=== PATIENT | male | born 1945 | race Caucasian/White ===

== ENCOUNTER → 2016-05-19 | Outpatient (REF) | payer MEDICARE ==
[~2016-05-19] MED LIST: ALDA25TA2 PO; AMIO20TA PO; ATEN25TA PO; CLIN150C PO; DICL PO; DIGO0.126 OR; FLEC100T2 PO; FLECAINIDE PO; FURO40TA2 PO; FURO40VL IV; HYDR2.5C TOP; PANT40TA2 PO; POTA10CA PO; PRAD150C PO; PRED10TA PO
[2016-05-19 20:28] LABS: RETIC HEMOGLOBIN CONTENT CHr 35.8 PG (24-36); RETICULOCYTE ABSOLUTE ADVIA212 68 x10(9)/L (17-77)
[2016-05-19 20:29] LABS: REASON FOR REVIEW COMPREHENSIVE REVIEW
== END ==
LOC: M LAB REF 17:00
PROVIDERS: ATTEND Internal Medicine
DX: D75.89 Other specified diseases of blood and blood-forming organs (principal); D52.8 Other folate deficiency anemias

== ENCOUNTER → 2016-05-20 | Outpatient (REF) | payer MEDICARE | END | disposition home or self-care (01) | LOC: M LAB REF 12:23 | PROVIDERS: ATTEND Internal Medicine | DX: D72.820 Lymphocytosis (symptomatic) (principal) ==

== ENCOUNTER → 2016-06-15 | Outpatient (REF) | payer MEDICARE ==
[2016-06-15 20:04] LABS: IMMUNOGLOBULIN M 98.9 MG/DL (40-230); TOTAL PROTEIN 7.3 GM/DL (6.4-8.2)
[2016-06-15 20:56] LABS: REASON FOR REVIEW COMPREHENSIVE REVIEW
[2016-06-17 14:19] LABS: BETA 2 MICROGLOBULIN 5.6 mg/L (0.6-2.4)
[2016-06-18 00:06] LABS: FREE KAPPA LIGHT CHAINS SERUM 62.44 mg/L (3.30-19.40); FREE LAMBDA LIGHT CHAINS SERUM 37.19 mg/L (5.71-26.30); KAPPA/LAMBDA RATIO SERUM 1.68 (0.26-1.65)
== END ==
LOC: M LAB REF 16:31
PROVIDERS: ATTEND Internal Medicine Medical Oncology
DX: D72.820 Lymphocytosis (symptomatic) (principal)

== ENCOUNTER → 2016-06-24 | Outpatient (REF) | payer MEDICARE | LOC: M LAB REF 11:40 | PROVIDERS: ATTEND Internal Medicine Medical Oncology | DX: C84.00 Mycosis fungoides, unspecified site (principal) ==

== ENCOUNTER → 2016-09-17 | Outpatient (REF) | payer MEDICARE | LOC: M LAB REF 16:31 | PROVIDERS: ATTEND Surgery | DX: L72.11 Pilar cyst (principal) ==

== ENCOUNTER → 2017-01-06 | Outpatient (CLI) | payer MEDICARE ==
[~2017-01-06] MED LIST changes: +ASPI1TAB PO; +EPLE50TA PO; +TORS20TA2 PO
[2017-01-06 18:25] LABS: ANION GAP 6 MEQ/L (8-16); BLOOD UREA NITROGEN 26 MG/DL (7-18); CALCIUM LEVEL 9.1 MG/DL (8.8-10.2); CARBON DIOXIDE LEVEL 31 MEQ/L (21-32); CHLORIDE LEVEL 103 MEQ/L (98-107); CREATININE FOR GFR 1.17 MG/DL (0.70-1.30); GLOMERULAR FILTRATION RATE > 60.0 (>42); GLUCOSE, FASTING 89 MG/DL (83-110); MAGNESIUM LEVEL 2.6 MG/DL (1.8-2.4); POTASSIUM SERUM 4.5 MEQ/L (3.5-5.1); SODIUM LEVEL 140 MEQ/L (136-145)
== END ==
LOC: M SMT 13:38
PROVIDERS: ATTEND Internal Medicine Cardiovascular Disease
DX: I50.32 Chronic diastolic (congestive) heart failure (principal)

== ENCOUNTER 2017-02-17 07:40 | Outpatient (CLI) | payer MEDICARE ==
[~2017-02-17] VITALS: Ht 180.3 cm; Wt 73.5 kg
[~2017-02-17 07:40] MED LIST changes: -ASPI1TAB PO; -EPLE50TA PO; -TORS20TA2 PO
[2017-02-17] MEDS ORDERED: NS 1,000 ML IV ONE (08:00)
[2017-02-17] MEDS ORDERED: EPLE50TA PO (08:25)
[2017-02-17] MEDS ORDERED: ASPI1TAB PO (08:25)
[2017-02-17] MEDS ORDERED: TORS20TA2 PO (08:25)
[2017-02-17] MEDS ORDERED: PROPOFOL 200 MG/20 ML VIAL As Ordered ONE ×2 (09:23→09:24)
[2017-02-17] MEDS ORDERED: LIDOCAINE 2% INJ 100 MG/5 ML SDV (FOR ANES.) As Ordered ONE (09:23)
--- NOTE | 2017-02-17 09:25 | ROOR ---
Patient Name: Darryl Lam Procedure Date: 02/17/2017 9:10 AM Date of : 1945 Age: 71 Room: [facility] Gender: Male Note Status: Finalized Procedure: Upper GI endoscopy Indications: Dysphagia Providers: Daryl Rascon MD Referring MD: AMINA FRANKS JR, MD Requesting Provider: Medicines: Monitored Anesthesia Care Complications: No immediate complications. Procedure: Pre-Anesthesia Assessment: - The heart rate, respiratory rate, oxygen saturations, blood pressure, adequacy of pulmonary ventilation, and response to care were monitored throughout the procedure. The Endoscope was introduced through the mouth, and advanced to the second part of duodenum. The upper GI endoscopy was accomplished without difficulty. The patient tolerated the procedure well. Findings: An esophago-gastric anastomosis was found in the proximal esophagus. No other significant abnormalities were identified in a careful examination of the stomach. The exam of the duodenum was otherwise normal. Impression: - An esophago-gastric anastomosis was found. - No specimens collected. - The examination was otherwise normal. Recommendation: - Patient has a contact number available for emergencies. The signs and symptoms of potential delayed complications were discussed with the patient. Return to normal activities tomorrow. Written discharge instructions were provided to the patient. - Discharge patient to home. - Continue present medications. - Return to referring physician. - The findings and recommendations were discussed with the patient's family. Daryl Rascon MD Daryl Rascon MD 02/17/2017 9:24:36 AM This report has been signed electronically. Number of Addenda: 0 Note Initiated On: 02/17/2017 9:10 AM Estimated Blood Loss: Estimated blood loss: none.
--- NOTE | 2017-02-17 09:38 | ROOR ---
Patient Name: Darryl Lam Procedure Date: 02/17/2017 9:10 AM Date of : 1945 Age: 71 Room: [facility] Gender: Male Note Status: Finalized Procedure: Total Colonoscopy to Cecum Indications: High risk colon cancer surveillance: Personal history of colonic polyps Providers: Daryl Rascon MD Referring MD: AMINA FRANKS JR, MD Requesting Provider: Medicines: Monitored Anesthesia Care Complications: No immediate complications. Procedure: Pre-Anesthesia Assessment: - The heart rate, respiratory rate, oxygen saturations, blood pressure, adequacy of pulmonary ventilation, and response to care were monitored throughout the procedure. The Colonoscope was introduced through the anus and advanced to the cecum, identified by appendiceal orifice and ileocecal valve. The colonoscopy was performed without difficulty. The patient tolerated the procedure well. The quality of the bowel preparation was excellent. Findings: The perianal and digital rectal examinations were normal. Non-bleeding internal hemorrhoids were found during retroflexion. The hemorrhoids were small and Grade I (internal hemorrhoids that do not prolapse). Multiple small-mouthed diverticula were found in the recto-sigmoid colon, sigmoid colon and descending colon. The exam was otherwise without abnormality on direct and retroflexion views. Impression: - Non-bleeding internal hemorrhoids. - Diverticulosis in the recto-sigmoid colon, in the sigmoid colon and in the descending colon. - The examination was otherwise normal on direct and retroflexion views. - No specimens collected. - The exam was otherwise normal to the cecum. Recommendation: - Patient has a contact number available for emergencies. The signs and symptoms of potential delayed complications were discussed with the patient. Return to normal activities tomorrow. Written discharge instructions were provided to the patient. - High fiber diet. - Discharge patient to home. - Continue present medications. - Repeat colonoscopy in 5 years for surveillance. - Return to referring physician. - The findings and recommendations were discussed with the patient's family. Daryl Rascon MD Daryl Rascon MD 02/17/2017 9:38:23 AM This report has been signed electronically. Number of Addenda: 0 Note Initiated On: 02/17/2017 9:10 AM Estimated Blood Loss: Estimated blood loss: none.
[2017-02-17 10:12] VITALS: BP 155/65
== END 2017-02-17 10:14 | disposition home or self-care (01) ==
LOC: M OPP 07:40
PROVIDERS: ATTEND Internal Medicine Gastroenterology
DX: Z12.11 Encounter for screening for malignant neoplasm of colon (principal); Z86.010 Personal history of colon polyps; Z85.01 Personal history of malignant neoplasm of esophagus; K64.0 First degree hemorrhoids; K57.30 Diverticulosis of large intestine without perforation or abscess without bleeding; R13.10 Dysphagia, unspecified; Z98.890 Other specified postprocedural states; I48.91 Unspecified atrial fibrillation; I50.9 Heart failure, unspecified; I34.0 Nonrheumatic mitral (valve) insufficiency; R60.0 Localized edema; Z95.0 Presence of cardiac pacemaker; Z92.21 Personal history of antineoplastic chemotherapy; Z92.3 Personal history of irradiation; R12 Heartburn; Z79.899 Other long term (current) drug therapy; Z79.82 Long term (current) use of aspirin
CPT/HCPCS: 43235; G0105

== ENCOUNTER → 2017-07-13 | Outpatient (CLI) | payer MEDICARE ==
[2017-07-13 20:21] LABS: ALBUMIN 3.8 GM/DL (3.2-5.2); ANION GAP 7 MEQ/L (8-16); BLOOD UREA NITROGEN 24 MG/DL (7-18); CALCIUM LEVEL 8.9 MG/DL (8.8-10.2); CARBON DIOXIDE LEVEL 33 MEQ/L (21-32); CHLORIDE LEVEL 103 MEQ/L (98-107); CREATININE FOR GFR 1.23 MG/DL (0.70-1.30); GLOMERULAR FILTRATION RATE > 60.0 (>42); GLUCOSE, FASTING 96 MG/DL (70-100); MAGNESIUM LEVEL 2.6 MG/DL (1.8-2.4); NT-PRO BNP 1014 PG/ML (<125); PHOSPHORUS LEVEL 3.4 MG/DL (2.5-4.9); SODIUM LEVEL 143 MEQ/L (136-145)
== END ==
LOC: M SMT 10:36
DX: I50.32 Chronic diastolic (congestive) heart failure (principal)
CPT/HCPCS: 83735

== ENCOUNTER → 2017-08-11 | Outpatient (CLI) | payer MEDICARE ==
[2017-08-11 19:02] LABS: ALBUMIN 3.8 GM/DL (3.2-5.2); ANION GAP 6 MEQ/L (8-16); BILIRUBIN,DIRECT 0.5 MG/DL (0.0-0.2); BILIRUBIN,TOTAL 1.3 MG/DL (0.2-1.0); BLOOD UREA NITROGEN 31 MG/DL (7-18); CARBON DIOXIDE LEVEL 30 MEQ/L (21-32); CHLORIDE LEVEL 103 MEQ/L (98-107); CREATININE FOR GFR 1.54 MG/DL (0.70-1.30); GLOMERULAR FILTRATION RATE 47.5 (>42); GLUCOSE, FASTING 103 MG/DL (70-100); PHOSPHORUS LEVEL 4.1 MG/DL (2.5-4.9); POTASSIUM SERUM 4.5 MEQ/L (3.5-5.1); SODIUM LEVEL 139 MEQ/L (136-145)
== END ==
LOC: M SMT 13:51
DX: I50.32 Chronic diastolic (congestive) heart failure (principal); R60.0 Localized edema
CPT/HCPCS: 82247

== ENCOUNTER → 2017-11-04 | Outpatient (CLI) | payer MEDICARE ==
[2017-11-04 18:06] LABS: ANION GAP 8 MEQ/L (8-16); BILIRUBIN,DIRECT 0.5 MG/DL (0.0-0.2); BILIRUBIN,TOTAL 1.2 MG/DL (0.2-1.0); BLOOD UREA NITROGEN 28 MG/DL (7-18); CALCIUM LEVEL 8.8 MG/DL (8.8-10.2); CARBON DIOXIDE LEVEL 32 MEQ/L (21-32); CHLORIDE LEVEL 101 MEQ/L (98-107); GLOMERULAR FILTRATION RATE > 60.0 (>42); GLUCOSE, FASTING 94 MG/DL (70-100); MAGNESIUM LEVEL 2.8 MG/DL (1.8-2.4); NT-PRO BNP 3934 PG/ML (<125); POTASSIUM SERUM 4.3 MEQ/L (3.5-5.1); SODIUM LEVEL 141 MEQ/L (136-145)
== END ==
LOC: M LAB 16:30
DX: I50.32 Chronic diastolic (congestive) heart failure (principal)
CPT/HCPCS: 82247

== ENCOUNTER → 2018-01-03 | Outpatient (REF) | payer MEDICARE ==
[2018-01-03 13:22] LABS: EOSINOPHILS 1 % (0-5); LYMPHOCYTES 89 % (16-52); MONOCYTES 1 % (0-8); NEUTROPHILS 9 % (35-75)
[2018-01-03 13:34] LABS: ANISOCYTOSIS 3+; SCHISTOCYTES 2+
[2018-01-03 13:35] LABS: OVALOCYTES 1+; PLATELET ESTIMATE NORMAL (NORMAL)
== END ==
LOC: M LAB REF 12:04
DX: D72.820 Lymphocytosis (symptomatic) (principal); D72.89 Other specified disorders of white blood cells
CPT/HCPCS: 85007

== ENCOUNTER → 2018-07-11 | Outpatient (REF) | payer MEDICARE ==
[~2018-07-11] MED LIST changes: +AMIL5TAB4 PO; +ASPI1TAB PO; +EPLE50TA PO; +KLOR10TA76 PO; +PANT40TA3 PO; -POTA10CA PO; +TORS20TA2 PO
[2018-07-11 14:24] LABS: EOSINOPHILS 2 % (0-5); HYPOCHROMASIA 1+; LYMPHOCYTES 83 % (16-52); MONOCYTES 4 % (0-8); NEUTROPHILS 11 % (35-75); POIKILOCYTOSIS 2+
[2018-07-11 14:25] LABS: BURR CELLS 1+; HOWELL-JOLLY BODIES 1+; OVALOCYTES 1+; SCHISTOCYTES 1+
[2018-07-11 14:29] LABS: GIANT PLATELETS 1+; PLATELET ESTIMATE NORMAL (NORMAL)
== END ==
LOC: M LAB REF 12:32
PROVIDERS: ATTEND Internal Medicine
DX: R79.89 Other specified abnormal findings of blood chemistry (principal); R94.5 Abnormal results of liver function studies; D72.829 Elevated white blood cell count, unspecified

== ENCOUNTER → 2018-11-23 | Outpatient (CLI) | payer MEDICARE ==
[~2018-11-23] MED LIST changes: +AMIO200T10 PO; +AMIO200T22 PO; -AMIO20TA PO; -ASPI1TAB PO; +ASPI81TA26 PO; -DICL PO; +DICL1CAP2 PO; +ELIQ5TAB PO; -FURO40VL IV; +PRAD150C6 PO; +PRED-351 PO; -PRED10TA PO; +[UNRECOGNIZED DRUG - CODE] IV
[2018-11-23 13:28] LABS: ALBUMIN 3.6 GM/DL (3.2-5.2); BILIRUBIN,DIRECT 0.5 MG/DL (0.0-0.2); BILIRUBIN,TOTAL 1.2 MG/DL (0.2-1.0); CALCIUM LEVEL 9.1 MG/DL (8.8-10.2); CREATININE FOR GFR 1.34 MG/DL (0.70-1.30); GLOMERULAR FILTRATION RATE 55.6 (>42); MAGNESIUM LEVEL 2.7 MG/DL (1.8-2.4); PHOSPHORUS LEVEL 3.4 MG/DL (2.5-4.9); POTASSIUM SERUM 4.2 MEQ/L (3.5-5.1)
== END ==
LOC: M SMT 09:19
PROVIDERS: ATTEND Internal Medicine Cardiovascular Disease
DX: I50.32 Chronic diastolic (congestive) heart failure (principal)

== ENCOUNTER → 2019-01-10 | Outpatient (CLI) | payer MEDICARE ==
[2019-01-10 14:03] LABS: ALBUMIN 3.8 GM/DL (3.2-5.2); BILIRUBIN,DIRECT 0.5 MG/DL (0.0-0.2); BILIRUBIN,TOTAL 1.3 MG/DL (0.2-1.0); CALCIUM LEVEL 9.3 MG/DL (8.8-10.2); CREATININE FOR GFR 1.33 MG/DL (0.70-1.30); GLOMERULAR FILTRATION RATE 56.1 (>42); MAGNESIUM LEVEL 2.8 MG/DL (1.8-2.4); PHOSPHORUS LEVEL 3.5 MG/DL (2.5-4.9); POTASSIUM SERUM 4.1 MEQ/L (3.5-5.1)
== END ==
LOC: M SMT 09:27
PROVIDERS: ATTEND Internal Medicine Cardiovascular Disease
DX: I50.32 Chronic diastolic (congestive) heart failure (principal)

== ENCOUNTER → 2019-03-16 | Outpatient (CLI) | payer MEDICARE ==
[2019-03-16 13:44] LABS: FREE T4 1.1 NG/DL (0.76-1.46); FREE THYROXINE INDEX 3.1 % (1.4-3.8); THYROID STIMULATING HORMONE 2.12 uIU/ML (0.358-3.740); THYROXINE (T4) 8.2 UG/DL (4.5-12.0); TOTAL T3 55.2 NG/DL (60.0-181.0)
== END ==
LOC: M SMT 10:38
PROVIDERS: ATTEND Ophthalmology
DX: H16.221 Keratoconjunctivitis sicca, not specified as Sjogren's, right eye (principal)

== ENCOUNTER 2019-04-10 16:46 | Inpatient (IN) | payer MEDICARE ==
[~2019-04-10] VITALS: Ht 180.3 cm; Wt 57.4 kg
[2019-04-10] MEDS ORDERED: DIGO0.12 PO (16:56)
[2019-04-10] MEDS ORDERED: ACETAMINOPHEN TAB 650MG DOSE (2X325MG) PO ONE (17:45)
--- NOTE | 2019-04-10 18:02 | REP ---
Clinical: Cough and dyspnea. Comparison: 11/21/2015. Findings: Moderate pleural effusions and bibasilar infiltrate/atelectasis with cephalization is consistent with CHF and pulmonary edema. Dual lead pacemaker along with prior sternotomy and aortic valve repair noted. Impression: CHF with moderate pleural effusions and bibasilar atelectasis. Electronically Signed by Chun Plascencia MD 04/10/2019 05:53 P
[2019-04-10] MEDS ORDERED: NS 1,000 ML IV ONE (18:15)
[2019-04-10 18:17] LABS: VENOUS BASE EXCESS 6.7 (-2.0-2.0); VENOUS HCO3 30.5 MEQ/L (23.0-27.0); VENOUS O2 SATURATION 70.5 % (60.0-80.0); VENOUS PARTIAL PRESSURE CO2 40.6 mmHg (38.0-50.0); VENOUS PH 7.494 UNITS (7.330-7.430); VENOUS STANDARD HCO3 30.1 MEQ/L; VENOUS TOTAL CO2 31.8 MEQ/L (24.0-28.0)
[2019-04-10 18:29] LABS: HEMATOCRIT 27.7 % (42.0-52.0); HEMOGLOBIN 9.2 g/dl (13.5-17.5); MEAN CORPUSCULAR HEMOGLOBIN 36.5 pg (27.0-33.0); MEAN CORPUSCULAR HGB CONC 33.2 g/dl (32.0-36.5); MEAN CORPUSCULAR VOLUME 109.9 fl (80.0-96.0); PLATELET COUNT, AUTOMATED 283 10^3/uL (150-450); RED BLOOD COUNT 2.52 10^6/uL (4.30-6.10); WHITE BLOOD COUNT 15.1 10^3/uL (4.0-10.0)
[2019-04-10 18:41] LABS: INR 1.93; PROTHROMBIN TIME 21.9 SECONDS (11.8-14.0)
[2019-04-10 18:50] LABS: ALBUMIN 3.2 GM/DL (3.2-5.2); ALT/SGPT 20 U/L (12-78); BILIRUBIN,DIRECT 0.5 MG/DL (0.0-0.2); BILIRUBIN,TOTAL 1.3 MG/DL (0.2-1.0); BLOOD UREA NITROGEN 28 MG/DL (7-18); C REACTIVE PROTEIN QUANTITATIV 0.95 MG/DL (0.00-0.30); CALCIUM LEVEL 8.8 MG/DL (8.8-10.2); CARBON DIOXIDE LEVEL 32 MEQ/L (21-32); CHLORIDE LEVEL 95 MEQ/L (98-107); CK-MB VALUE MASS < 1.0 NG/ML (<3.6); CPK CREATINE PHOSPHOKINASE 29 U/L (39-308); CREATININE FOR GFR 1.78 MG/DL (0.70-1.30); GLUCOSE, FASTING 108 MG/DL (70-100); MB/CK RELATIVE INDEX 3.45 (< OR =4); NT-PRO BNP 4530 PG/ML (<125); SODIUM LEVEL 136 MEQ/L (136-145); TOTAL PROTEIN 6.3 GM/DL (6.4-8.2); TROPONIN I < 0.02 NG/ML (< 0.10)
[2019-04-10 19:07] LABS: ANISOCYTOSIS 3+; ATYPICAL LYMPH 7 % (0-5); LYMPHOCYTES 19 % (16-44); MONOCYTES 1 % (0-5); NEUTROPHILS 64 % (28-66)
[2019-04-10 19:08] LABS: HYPOCHROMASIA 1+; OVALOCYTES 1+; POIKILOCYTOSIS 2+; SPHEROCYTES 1+
[2019-04-10 19:09] LABS: PLATELET ESTIMATE NORMAL (NORMAL)
--- NOTE | 2019-04-10 19:51 | REPVR ---
PROCEDURE INFORMATION: Exam: CT Chest Without Contrast Exam date and time: 04/10/2019 7:06 PM Age: 74 years old Clinical history: Chest pain; Prior surgery; Additional info: Pneumonia, chf TECHNIQUE: Imaging protocol: Computed tomography of the chest without contrast. 3D rendering: MIP reconstructed images were created and reviewed. Radiation optimization: All CT scans at this facility use at least one of these dose optimization techniques: automated exposure control; mA and/or kV adjustment per patient size (includes targeted exams where dose is matched to clinical indication); or iterative reconstruction. COMPARISON: CT Chest without contrast 11/19/2015 12:17 PM FINDINGS: Lungs: Surgical clip in the left lower lobe consistent with prior surgery. Bibasilar atelectasis. Infection to be excluded clinically. Well-inflated lungs consistent with COPD. Lungs otherwise clear. Pleural space: Small bilateral pleural effusions right greater than left, decreased in comparison to the prior exam of 2015. Heart: Status post CABG. Coronary artery disease. Status post mitral valve replacement. Cardiac pacing wires identified. Aorta: The aorta demonstrates ectasia and mild atherosclerotic calcification. Lymph nodes: Unremarkable. No enlarged lymph nodes. Spleen: Status post splenectomy. Kidneys and ureters: Left renal cysts. Stomach and bowel: Status post gastric pullup procedure. Bones/joints: Osteoporosis. The spine demonstrates mild degenerative changes. Status post sternotomy. Age-indeterminate compression fracture of T11. Compression deformity superior endplate of T8 also age-indeterminate. Soft tissues: Mild anasarca. IMPRESSION: 1. Bibasilar atelectasis. Infection to be excluded clinically. 2. Status post gastric pullup procedure. 3. Status post CABG. 4. Age-indeterminate compression fracture of T11 and superior endplate of T8. Clinical correlation to exclude acute fractures suggested. 5. COPD. Electronically signed by: Jonah Navas On 04/10/2019 19:50:29 PM
[2019-04-10] MEDS ORDERED: cefTRIAXone SOD 2 GM in D5W MINI-BAG PLUS 50 ML IV ONE (20:00)
--- NOTE | 2019-04-10 20:03 | ECGEPIP ---
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
[2019-04-10] MEDS ORDERED: TORS100T PO (20:08)
[2019-04-10] MEDS ORDERED: NS 500 ML IV ONE (20:30)
[2019-04-10] MEDS ORDERED: MOM 30ML SUSPENSION UDC PO PRN (21:00)
[2019-04-10] MEDS ORDERED: ACETAMINOPHEN TAB 650MG DOSE (2X325MG) PO PRN (21:00)
[2019-04-10] MEDS ORDERED: PIPERACILLIN/TAZOBACTAM SOD 4.5 GM in D5W MINI-BAG PLUS 100 ML IV SCH (21:15)
[2019-04-10 21:20] LABS: PHOSPHORUS LEVEL 2.8 MG/DL (2.5-4.9)
[2019-04-10] MEDS ORDERED: NOREPINEPHRINE BITARTRATE 8 MG in D5W 492 ML IV SCH ×2 (21:30→21:47)
[2019-04-10 21:55] VITALS: BP 81/43
[2019-04-10] MEDS ORDERED: LIDOCAINE 1% MDV 20ML VIAL As Ordered ONE (22:24)
[2019-04-10 22:30] VITALS: BP 84/49
[2019-04-10 23:00] VITALS: BP 88/54
[2019-04-10] MEDS ORDERED: VANCOMYCIN HCL 750 MG, VIAL MATE ADAPTER 1 EACH in D5W 250 ML IV ONE (23:00)
--- NOTE | 2019-04-10 23:19 | PHACANCOPD ---
PHARMACY VANCOMYCIN DOSING Pt Demographics Demographics Patient Age:74 , Weight:59.090 , Gender: male Adjusted Body Weight Date: 04/10/19, Adjusted Body Weight: Kg Events Past 24 Hours Events Past 24 Hours: NO: Dialysis, Diuretic Therapy, Change in CrCl, Fever, Elevation in WBC, Pending Diagnostics, Pending Procedures, Other Vancomycin Vancomycin indication: SEPSIS Vancomycin Target Ranges: 15-20 mcg/ml Vancomycin Load Y/N: Yes Load Dose Date Time Vancomycin Load Dose:1.25G Date: 04/10/19 Time: Vancomycin Dose Date: 04/10/19. Current Vancomycin Dose: [1G IV Q24H] Intermittent Dosing?: No Labs Labs Item Value Date Time White Blood Count 15.1 10^3/uL H 04/10/19 1801 Creatinine 1.78 MG/DL H 04/10/19 1800 Micro Microbiology 04/10/19 Blood Culture, Received Pending 04/10/19 Gram Stain, Received Pending 04/10/19 Sputum Culture, Received Pending 04/10/19 Respiratory Virus Panel (PCR) (ADRIANA) - Final, Complete 04/10/19 Blood Culture, Received Pending Creatinine Clearance Date:04/10/19. Creatinine Clearance: [27ML/MIN]. Pending Labs MRSA PCR Assessment and Plan Maintaining Current Dose?: Yes Reason for dose change: No Dose Change Pharmacist Note Pharmacist Note Date: 04/10/19. Pharmacist note:Pt is a 74 year old male being treated for sepsi s goal trough 15-20mcg/ml. The patient was last treated with vancomycin here at [facility] in June 2013. To achieve goal a 1.25g loading dose was started 04/10/19 @23. Maintenance therapy will consist of 1g iv every 24 hours. A MRSA PCR is ordered. We will continue to monitor and adjust the dose as needed. MARIYA CERNA PHARMACY Apr 10, 2019 23:19
[2019-04-10] MEDS ORDERED: NOREPINEPHRINE 4 MG/4 ML AMP As Ordered ONE (23:22)
[2019-04-10] MEDS: APIXABAN 5 MG TAB (ELIQUIS) PO SCH (23:36)
[2019-04-10] MEDS: PIPERACILLIN/TAZOBACTAM SOD 2.25 GM in D5W MINI-BAG PLUS 50 ML IV SCH (23:36)
--- NOTE | 2019-04-10 23:47 | ROOPDOC ---
[facility] Report Of Operation Report of Operation DATE OF PROCEDURE: 04/10/19 PREPROCEDURE DIAGNOSES: decompensated CHF, hypotension, sepsis POSTPROCEDURE DIAGNOSES: decompensated CHF, hypotension, sepsis PROCEDURE: right IJ central line placement Performed by: Marysol Go Attending: Dr. Vicente ANESTHESIA: local ESTIMATED BLOOD LOSS: Approximately 0 mL. COMPLICATIONS: none PROCEDURE NOTE: Consent was obtained prior to the procedure. Indications, risks and benefits were explained to the patient. Procedure was performed in ICU at bedside. DESCRIPTION OF PROCEDURE: The patient was placed in the supine position, was placed in Trendelenburg. The right chest region and neck was prepped with chlorhexidine scrub. The patient was draped in the typical sterile fashion using a full drape. Ultrasonography was employed at bedside. A sterile probe cover was placed over the ultrasound. The medial and lateral head of the sternocleidomastoid were identified, as was the carotid pulse. The internal jugular vein was identified using ultrasound. Anesthesia was achieved over the internal jugular vein on the right using a 1% lidocaine solution. Once anesthetized, an introducer needle was inserted into the internal jugular vein under direct ultrasound visualization. Venous blood was withdrawn, syringe was removed and a guidewire was advanced on to the introducer needle. The guidewire was visualized in the internal jugular vein by ultrasound. A small incision was made in the skin surface with a scalpel, and the introducer needle was exchanged for a dilator over the guidewire. After appropriate dilation was obtained, the dilator was exchanged over the wire for a central venous catheter. The wire was removed, and the catheter was sutured in place. A sterile bandage was placed over the catheter site. The patient tolerated the procedure well without any hemodynamic compromise. At the time of procedure completion, all ports were aspirated and flushed properly. Postprocedure x-ray was performed, which demonstrated adequate positioning of the central venous catheter in the right internal jugular vein. GME ATTESTATION GME ATTESTATION My faculty preceptor for this patient encounter was physically present during the encounter and was fully available. All aspects of the patient interview, examination, medical decision making process, and medical care plan development were reviewed and approved by the faculty preceptor. The faculty preceptor is aware and concurs with the plan as stated in the body of this note and will attest to such by his/her cosignature. I, Meagan Vicente, was present for the entirety of the procedure and agree with the procedure documentation as detailed above. MARYSOL GO DO Apr 10, 2019 23:47 MEAGAN VICENTE MD Apr 11, 2019 10:52
--- NOTE | 2019-04-10 23:55 | HPEPDOC ---
General Date of Admission Apr 10, 2019 at 21:12 Date of Service: Apr 10, 2019 Primary Care Physician: Jr Bahena Collins Other Providers Cardio: Dr. Mims Onc: Dr. Merino & Dr. Fuller in [place] Chief Complaint The patient is a 74-year-old male admitted with a reason for visit of Pneumonia, Sepsis. History of Present Illness 74-year-old male with extensive past medical history as noted below, presents with for gradually worsening dyspnea over the past 4-5 weeks. Only other complaints are of chills, orthopnea, and cough with minimal phlegm that is clear. Denies any inciting factors, recent travel, changes in meds, sick contacts, or any noncompliance. He reports he normally sleeps with one pillow, however has required elevation of his head since his dyspnea. Reports he is able to ambulate about one block with normal health, however now feels short of breath even at rest. Denies any recent fevers, however found to have Tmax 101.4 in ER. Denies edema, PND, chest pain, dizziness. In the ER, imaging notable for bilateral pleural effusions, elevated BNP, and patient noted to be septic with fever, leukocytosis, tachycardia, hypotension. EKG with HR 90s confirms his known history of A. fib without any acute ST or NC abnormality. He received 1 dose Ceftriaxone in ER and will will be admitted for further workup and close monitoring in ICU. 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 fib chronically on December JESSE, not on CPAP End-stage esophageal cancer, S/P esophagectomy and chemotherapy & radiation Hypertension Mitral valve repair Surgical History Esophagectomy with gastric pull-up Right inguinal hernia repair Dual-chamber pacemaker 2013 Cystoscopy with stent placement Splenectomy and esophagectomy 1998 Mitral valve repair at [facility] 2014 Family History Father age 93 with CHF Mother passed at age 92 with CHF Social History Denies ever smoking, alcohol, illicit substances. Lives at home with . A-FIB/CHADSVASC A-FIB History Current/History of A-Fib/PAF?: Yes Current PO Anticoag Therapy: Yes Review of Systems Other systems Constitutional: Denies fever,night sweats. Admits chills HEENT: Denies headache, dysphagia Skin: Denies any rashes or lesions Pulmonary: Admits dyspnea, minimal clear phlegm production, no wheezing or cough Cardiac: Denies chest pain, palpitations, PND, edema, lightheadedness. Admits orthopnea GI: Denies nausea, vomiting, abdominal pain, diarrhea, constipation, melena, hematochezia MSK: Denies new pains or weakness Neurologic: Denies new numbness/tingling Physical Examination Other physical findings General exam: A&O 3, NAD, resting comfortably HEENT: NCAT, EOMI, MMM, +JVD Cardiac: RRR, normal S1 & S2, no murmurs, pacemaker in left upper chest Respiratory: bibasilar crackles, diminshed breath sounds throughout, no wheezing or rhonchi Abdomen: soft, NT, ND Extremity: 2+ radial and dorsalis pedis pulses, 1+ edema midway up to knees, no calf tenderness Skin: [place]well, warm, dry, no visible rash Msk: strength 5/5 x4, normal tone, no spinal tenderness Neuro: normal speech, no focal deficits Psych: Normal mood and affect Vital Signs Vital Signs Date Time Temp Pulse Resp B/P (MAP) Pulse Ox O2 Delivery O2 Flow Rate FiO2 04/10/19 21:17 80 20 92 Room Air 04/10/19 21:15 81/43 (56) 04/10/19 20:04 99.6 Laboratory Data Labs 24H Laboratory Tests 2 04/10/19 18:00: Prothrombin Time 21.9H, Prothromb Time International Ratio 1.93, Blood Gas Bicarbonate Standard 30.1, Venous Blood pH 7.494H, Venous Blood Partial Pressure CO2 40.6, Venous Blood Partial Pressure O2 35.0, Venous Blood Total Carbon Dioxide 31.8H, Venous Blood HCO3 30.5H, Venous Blood Oxygen Saturation 70.5, Venous Blood Base Excess 6.7H, Anion Gap 9, Glomerular Filtration Rate 40.0L, Calcium Level 8.8, Phosphorus Level 2.8, Total Bilirubin 1.3H, Direct Bilirubin 0.5H, Aspartate Amino Transf (AST/SGOT) 28, Alanine Aminotransferase (ALT/SGPT) 20, Alkaline Phosphatase 89, Total Creatine Kinase 29L, Creatine Kinase MB < 1.0, Creatine Kinase MB Relative Index 3.45, Troponin I < 0.02, C-Reactive Protein, Quantitative 0.95H, HY-Rao-X-Type Natriuretic Peptide 4530H, Total Protein 6.3L, Albumin 3.2, Albumin/Globulin Ratio 1.03, Thyroid Stimulating Hormone (TSH) 2.020 04/10/19 18:01: Lymphocytes # (Auto) , Nucleated Red Blood Cells % (auto) 0.2H, Neutrophils 64, Band Neutrophils 9, Lymphocytes (Manual) 19, Monocytes (Manual) 1, Atypical Lymphocytes 7H, Hypochromasia 1+, Poikilocytosis 2+, Anisocytosis 3+, Macrocytosis 2+, Spherocytes 1+, Ovalocytes 1+, Acanthocytes 1+, Platelet Estimate NORMAL, Lactic Acid Level 2.9*H CBC/BMP Laboratory Tests 04/10/19 18:00 04/10/19 18:01 Microbiology Microbiology 04/10/19 Blood Culture, Received Pending 04/10/19 Gram Stain, Received Pending 04/10/19 Sputum Culture, Received Pending 04/10/19 Respiratory Virus Panel (PCR) (ADRIANA) - Final, Complete 04/10/19 Blood Culture, Received Pending Assessment/Plan 74-year-old male with PMH including CAD S/P CABG, PAF on Eliquis, PPM, and esophageal cancer s/p surgery & chemoradiation, presenting for gradually worsening dyspnea. Signs of acute CHF exacerbation, and also septic shock, requiring central line upon admission and started on pressors. Septic shock Fever, leukocytosis, tachycardia, hypotension, lactic acidosis. Received almost 1 full liter NS in ER without any significant improvement blood pressure. Avoid further fluids given decompensated CHF Central line placed in ICU and started on Levophed. Maintain MAP >65 Suspected source is likely pneumonia. Although respiratory panel negative, suspicion high due to clinical picture and imaging Will start on broad-spectrum antibiotics, monitor for improvement. Pro- calcitonin, CRP, sputum & blood cultures pending Pt high risk of Strep Pneumo given asplenic status, but reports compliance with Pneumococcal vaccine q5yrs Decompensated diastolic CHF Elevated BNP 4000+, edema, JVD, crackles, bilateral effusions on imaging Obtain outpatient cardiac records, follows Dr. Mims last echo 2013: EF 70%, Repeat echo ordered Avoid diuresis at this point given his hypotension strict I/O, daily wt, elevate legs & head Tachyarrhythmia Pt has PPM placed 2013, follows Dr. Mims Noted to be sinus tach [SVT vs Afib RVR] up to 160s in ICU, non-sustained. Otherwise stable self-resolved back to 70s-80s. Cardiac markers neg & EKG unchanged may be 2/2 septic state. Consider calling Cardio in am, possible PPM interrogation repeat card linares ordered for am Compression fractures noted incidentally on CT. Pt denies back pain or any recent falls monitor and o/p f/u fall precautions in place NANCY on CKD III baseline Cr 1.2-1.3. 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 fib chronically on Eliquis continue Digoxin unable to tolerate BBlocker 2/2 chronically low bp as per pt JESSE unable to tolerate CPAP titrate supplemental O2 End-stage esophageal cancer S/P esophagectomy and chemotherapy & radiation [address] Merino & [facility] Hypertension hold home Amiloride & Torsemide given pressor requirement Mitral valve repair at [facility] 2014 new echo ordered GERD continue PPI DVT ppx: chronically Eliquis Code status: discussed with pt and , and he confirms FULL CODE with compr essions & intubation. DISPO: admit to Hospitalist, monitor closely in ICU. On pressors and broad spe ctrum abx, pending results. Plan / VTE VTE Prophylaxis Ordered?: Yes GME ATTESTATION GME ATTESTATION My faculty preceptor for this patient encounter was physically present during the encounter and was fully available. All aspects of the patient interview, examination, medical decision making process, and medical care plan development were reviewed and approved by the faculty preceptor. The faculty preceptor is aware and concurs with the plan as stated in the body of this note and will attest to such by his/her cosignature. KIMBERLY GREEN DO Apr 10, 2019 23:55 LOURDES HENDRICKS DO Apr 11, 2019 06:49
[2019-04-11] VITALS (51 sets, daily range): BP systolic 74–147; BP diastolic 44–89
[2019-04-11] MEDS ORDERED: VANCOMYCIN HCL 500 MG in D5W MINI-BAG PLUS 100 ML IV ONE ×2
[2019-04-11 01:18] LABS: INFLUENZA A AMPLIFICATION NEGATIVE (NEGATIVE); INFLUENZA B AMPLIFICATION NEGATIVE (NEGATIVE)
[2019-04-11] MEDS: NOREPINEPHRINE BITARTRATE 8 MG in D5W 492 ML IV SCH ×2 (01:48→20:00)
[2019-04-11 01:57] LABS: BLOOD UREA NITROGEN 29 MG/DL (7-18); CALCIUM LEVEL 7.9 MG/DL (8.8-10.2); CARBON DIOXIDE LEVEL 32 MEQ/L (21-32); CHLORIDE LEVEL 97 MEQ/L (98-107); CK-MB VALUE MASS < 1.0 NG/ML (<3.6); CPK CREATINE PHOSPHOKINASE 35 U/L (39-308); CREATININE FOR GFR 1.73 MG/DL (0.70-1.30); GLOMERULAR FILTRATION RATE 41.3 (>42); GLUCOSE, FASTING 156 MG/DL (70-100); MAGNESIUM LEVEL 2.1 MG/DL (1.8-2.4); MB/CK RELATIVE INDEX 2.86 (< OR =4); POTASSIUM SERUM 3.9 MEQ/L (3.5-5.1); SODIUM LEVEL 136 MEQ/L (136-145); TROPONIN I 0.04 NG/ML (< 0.10)
[2019-04-11] MEDS: PIPERACILLIN/TAZOBACTAM SOD 2.25 GM in D5W MINI-BAG PLUS 50 ML IV SCH ×4 (04:03→21:46)
--- NOTE | 2019-04-11 07:37 | REP ---
Clinical: Central line placement. Comparison: 04/10/2019 at 17:39 . Findings: Right IJ line with tip in the SVC. Mediastinum and cardiac silhouette are stable. No pneumothorax. Bibasilar atelectasis/infiltrates along with moderate pleural effusions and suspected partial collapse to the left lower lobe and right lower lobe suggested. Impression: Moderate pleural effusions with bibasilar atelectasis and bibasilar partial collapse. Electronically Signed by Chun Plascencia MD 04/11/2019 07:28 A
[2019-04-11 08:27] LABS: HEMATOCRIT 25.9 % (42.0-52.0); HEMOGLOBIN 8.3 g/dl (13.5-17.5); MEAN CORPUSCULAR HEMOGLOBIN 36.4 pg (27.0-33.0); MEAN CORPUSCULAR VOLUME 113.6 fl (80.0-96.0); PLATELET COUNT, AUTOMATED 242 10^3/uL (150-450); RED BLOOD COUNT 2.28 10^6/uL (4.30-6.10)
[2019-04-11 09:04] LABS: WHITE BLOOD COUNT 32.8 10^3/uL (4.0-10.0)
[2019-04-11 09:15] LABS: BLOOD UREA NITROGEN 30 MG/DL (7-18); CALCIUM LEVEL 8.1 MG/DL (8.8-10.2); CARBON DIOXIDE LEVEL 31 MEQ/L (21-32); CHLORIDE LEVEL 98 MEQ/L (98-107); CK-MB VALUE MASS < 1.0 NG/ML (<3.6); CPK CREATINE PHOSPHOKINASE 81 U/L (39-308); CREATININE FOR GFR 1.82 MG/DL (0.70-1.30); GLUCOSE, FASTING 141 MG/DL (70-100); MAGNESIUM LEVEL 2.1 MG/DL (1.8-2.4); MB/CK RELATIVE INDEX 1.23 (< OR =4); SODIUM LEVEL 136 MEQ/L (136-145); TROPONIN I 0.09 NG/ML (< 0.10)
[2019-04-11] MEDS: APIXABAN 5 MG TAB (ELIQUIS) PO SCH ×2 (09:23→20:15)
[2019-04-11] MEDS: PANTOPRAZOLE 40MG TAB (PROTONIX) PO SCH (09:23)
[2019-04-11 10:22] LABS: DIGOXIN LEVEL 1.6 NG/ML (0.5-2.0)
[2019-04-11] MEDS: DIGOXIN 0.125 MG TAB PO SCH (11:47)
--- NOTE | 2019-04-11 13:06 | CR ---
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 The patient denied noticing any significant chest pain. He denied noticing any increased lower extremity edema, although he has noted some increase orthopnea in the past few weeks with his worsening dyspnea. He has an occasional cough with clear sputum, but he does not feel it has been significantly worse. He has not had any fevers, but he did have some chills that he reported. He had no recent sick contacts. No recent travel. He denies any change in his medications and he reports he has been compliant with his torsemide 100 mg b.i.d. The patient does note that if he does not take his torsemide he will have increased lower extremity edema, but he has been compliant so has not noticed any significant edema besides in his ankles bilaterally. The patient does occasionally have episodes of palpitations with his paroxysmal atrial fibrillation although he denies that it has been worsening recently that he notices. He did have a recent echocardiogram done with his real estate acquisition analyst Dr. Mims and he was due to followup with him in the office next week. The patient otherwise denies any history of any pulmonary disease. He does have a history of a splenectomy and he reports that he has been compliant with his pneumococcal vaccine as per his primary care. PAST MEDICAL/SURGICAL HISTORY: CAD status post CABG. Dual-chamber pacemaker secondary to high degree AV block. Paroxysmal atrial fibrillation. JESSE not on CPAP. End stage esophageal cancer status post esophagectomy, chemotherapy and radiation. Hypertension. Mitral valve repair. Right inguinal hernia repair. Cystoscopy with stent placement. 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 HOME MEDICATIONS: - amiloride - Eliquis - digoxin - pantoprazole - torsemide 100 mg b.i.d. ALLERGIES: No known drug allergies. SOCIAL HISTORY: No history of smoking. Denies any history of alcohol use or other substances. FAMILY HISTORY: Father with history of CHF and mother with history of CHF. PHYSICAL EXAMINATION: T-current 97.3, T-max 101.4, pulse 74, respirations 20, blood pressure 82/51, O2 sat 93% on room air. GENERAL: The patient is a thin, frail male, is lying in bed, does not appear to be in any acute distress. He is able to speak in complete sentences without using any accessory muscles. HEENT: Normocephalic, atraumatic. Pupils reactive to light bilaterally. There are moist mucous membranes noted and no lesions in oropharynx. NECK: Neck is supple. Trachea is midline. There does not appear to be any palpable adenopathy. CARDIOVASCULAR: Regular rate and rhythm. Normal S1-S2. There is a loud heart sound with splitting of the second heart sound. Pacemaker on the left upper chest noted. RESPIRATORY: Mild bibasilar crackles and diminished breath sounds at the bases, but no significant wheezing or rhonchi. ABDOMEN: Soft, nontender, nondistended. EXTREMITIES: There is trace ankle edema but no significant pitting edema bilaterally. SKIN: Appears wrinkled in the legs with some evidence of skin tenting. LABORATORIES: WBC 32.8, hemoglobin 8.3, platelets 242. Chemistry - sodium is 136, potassium 4.0, chloride is 98, bicarb of 31, BUN 30, creatinine is 1.82, glucose 141, lactic acid initially was 2.9 repeat is 1.3. Troponins times two were negative. Procalcitonin is pending. Microbiology: Respiratory virus panel was negative. Blood culture results are pending. Sputum culture results are pending. IMAGING: CT chest on admission showed bilateral pleural effusions right greater than the left with some compressive atelectasis. There are cardiac pacing wires noted and the patient is status post CABG and mitral valve replacement. The patient also was noted to have a gastric pull-up procedure and an age indeterminate compression fracture of T11 and superior endplate of T8. The patient is also noted to be status post splenectomy. ASSESSMENT/PLAN: Mr. Lam is a 74-year-old male with a past medical history of CAD status post CABG, dual-chamber pacemaker secondary to a high AV block, history of paroxysmal atrial fibrillation, JESSE not on CPAP, history of esophageal cancer status post esophagectomy with gastric pull-up, history of mitral valve repair, history of splenectomy who is here today with increasing shortness of breath and dyspnea. The patient was also noted on admission to the ED to be febrile as well as having leukocytosis. 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 He does at baseline have some mild leukocytosis. The patient was also noted on imaging to have bilateral pleural effusions with the right greater than the left. He was also hypotensive in the ED and was initially given 1 liter of normal saline without improvement in his blood pressure. He therefore had a central line placed and was started on Levophed for possible septic shock to maintain a MAP above 65. - As per the patient and his real estate acquisition analyst however he reports he has chronic hypotension in the setting of his CHF and his blood pressures are usually in the 80s systolic when he follows up with his real estate acquisition analyst. Therefore, would continue to wean down Levophed and target a MAP of 60-65. - Patient did have pleural effusions on admission and an increased BNP, however he reportedly has been compliant with his diuretics and had not noticed any increased lower extremity edema. His IJ during central line the patient was also very collapsing and clinically currently patient does not appear to be significantly more fluid overloaded. He is not requiring any nasal cannula oxygen supplementation and is satting well on room air. - Therefore would hold off on diuresis at this time given the concern for possible sepsis. - Can continue with broad-spectrum antibiotics and followup the results of his procalcitonin to help deescalate his antibiotics. Will also followup results of sputum and blood cultures. Patient is at risk for encapsulated organisms given his history of splenectomy although the antibiotics he is on currently should cover broadly. In terms of his source, the patient denies any significant localizing symptoms besides a mild nonproductive cough. On CT he appears to have more compressive atelectasis and not focal opacities however, would continue treatment for possible pneumonia at this time. - The patient was noted to have acute kidney injury on CKD. Will continue to monitor his renal function off of diuretics. Some of this may potentially be prerenal from his diuresis and with possible septic shock. Deep vein thrombosis (DVT) prophylaxis. The patient is on anticoagulation with Eliquis FULL CODE. Total critical care time spent, not including any procedures, approximately 1 hour.
[2019-04-11] MEDS: LACTOBACILLUS ACIDOPHILUS CAP (BACID) PO SCH (16:34)
--- NOTE | 2019-04-11 18:44 | ECHO ---
DATE OF PROCEDURE: 04/11/2019 REFERRING PHYSICIAN: Dr. Rose INDICATION: Dyspnea. HEIGHT: 180 cm WEIGHT: 59 kg 2D MEASUREMENTS: Ventricular septum: 0.99 cm Posterior wall: 0.69 cm Left ventricle diastole: 4.9 cm Aortic root: 3.2 cm LVOT: 2.6 cm Left atrium: 4.2 cm Left atrial volume index: 30 Aortic root: 3.1 cm Inferior vena cava: 2.2 cm with marked reduction of respiratory variation. DOPPLER MEASUREMENTS: Mild aortic regurgitation. Aortic valve velocity: 132 cm/s LVOT velocity: 100 cm/s LVOT VTI: 19.5 cm Mild mitral regurgitation. No mitral stenosis. Mitral E velocity: 144 cm/s Mitral A velocity: 46.9 cm/s Mitral deceleration time: 229 ms Severe tricuspid regurgitation. Estimated right ventricle systolic pressure at least 37 mmHg assuming a right atrial pressure of at least 20 mmHg. No pulmonic regurgitation. DESCRIPTION: Rhythm appeared to be sinus. Image quality was fair. This was a 2D, M-mode, color flow Doppler and pulse wave Doppler examination that included mitral annular tissue Doppler. CONCLUSIONS: 1. Normal left ventricle internal dimensions and wall thickness. Normal regional left ventricle (LV) wall motion and wall thickening other than paradoxical septal motion. Partial flattening of the ventricular septum in diastole in keeping with volume overload of the right ventricle. 2. Dilated right ventricle (at least mildly dilated). Normal right ventricle (RV) systolic function. Appearance of tricuspid valve prolapse. Severe tricuspid regurgitation. Suggestive of at least mild elevation of estimated right ventricle systolic pressure (at least 37 mmHg). At least mild right atrial dilatation. 3. Inferior vena cava plethora suggestive of elevated central venous pressure of at least 20 mmHg. Hepatic venous congestion. 4. Bilateral pleural effusions. No pericardial effusion. 5. Status post mitral valve repair. No mitral stenosis. Mild mitral regurgitation. 6. Mild aortic valve sclerosis of a three-cuspid aortic valve. Mild aortic regurgitation. No aortic stenosis. 7. Presence of endocardial, right atrial and right ventricle pacemaker leads.
--- NOTE | 2019-04-11 20:30 | ECGEPIP ---
[facility] Test Date: 2019-04-11 Pat Name: RASHAWN VALENCIA Department: Room: [place] [address] Gender: Male Integrity Assessor: RHODA : 1945 Requested By: KIMBERLY GREEN Order Number: [id number] Reading MD: Keenan Elkins Measurements Intervals [place] Rate: 79 P: VA: 0 QRS: 265 QRSD: 145 T: 22 QT: 418 QTc: 480 Interpretive Statements ELECTRONIC VENTRICULAR PACEMAKER LIKELY UNDERLYING ATRIAL FIBRILLATION ABNORMAL RHYTHM ECG EVIDENCE FOR PACEMAKER IS NEW SINCE 04/10/19 Electronically Signed on 04-11-2019 20:30:06 EST by Keenan Elkins
[2019-04-11] MEDS ORDERED: VANCOMYCIN HCL 1,000 MG, VIAL MATE ADAPTER 1 EACH in D5W 250 ML IV SCH (21:00)
[2019-04-12] VITALS (29 sets, daily range): BP systolic 73–106; BP diastolic 43–57
[2019-04-12] MEDS: PIPERACILLIN/TAZOBACTAM SOD 2.25 GM in D5W MINI-BAG PLUS 50 ML IV SCH (04:58)
[2019-04-12 06:37] LABS: HEMATOCRIT 23.4 % (42.0-52.0); HEMOGLOBIN 7.6 g/dl (13.5-17.5); MEAN CORPUSCULAR HEMOGLOBIN 35.7 pg (27.0-33.0); MEAN CORPUSCULAR HGB CONC 32.5 g/dl (32.0-36.5); MEAN CORPUSCULAR VOLUME 109.9 fl (80.0-96.0); PLATELET COUNT, AUTOMATED 223 10^3/uL (150-450); RED BLOOD COUNT 2.13 10^6/uL (4.30-6.10)
[2019-04-12 07:00] LABS: CALCIUM LEVEL 7.9 MG/DL (8.8-10.2); CREATININE FOR GFR 1.52 MG/DL (0.70-1.30); MAGNESIUM LEVEL 2.2 MG/DL (1.8-2.4); POTASSIUM SERUM 3.8 MEQ/L (3.5-5.1)
[2019-04-12] MEDS: LACTOBACILLUS ACIDOPHILUS CAP (BACID) PO SCH ×3 (08:05→17:54)
[2019-04-12] MEDS: PANTOPRAZOLE 40MG TAB (PROTONIX) PO SCH (08:05)
[2019-04-12] MEDS: APIXABAN 5 MG TAB (ELIQUIS) PO SCH ×2 (08:05→21:41)
[2019-04-12] MEDS: DIGOXIN 0.125 MG TAB PO SCH (08:05)
[2019-04-12 09:31] LABS: FERRITIN 215 NG/ML (26-388); IRON (FE) 25 UG/DL (65-175); PERCENT SATURATION 19.8 % (19.7-50.0); TOTAL IRON BINDING CAPACITY 126 UG/DL (250-450)
[2019-04-12 09:52] LABS: VITAMIN B12 LEVEL 496 PG/ML (247-911)
[2019-04-12 09:53] LABS: FOLATE 8.4 NG/ML (>5.4)
[2019-04-12] MEDS: cefTRIAXone SOD 2 GM in D5W MINI-BAG PLUS 50 ML IV SCH (09:58)
[2019-04-12] MEDS: AZITHROMYCIN 250 MG TAB PO SCH (09:58)
--- NOTE | 2019-04-12 10:01 | IPNPDOC ---
Text Note Date of Service The patient was seen on 04/11/19. NOTE Subjective: Feels a little better today , has armida cough , denies any SOB at rest, no fever this am, nonausea or vomiting or diarreha. Physical Exam: Vitals : As below General exam: A&O 3, NAD, resting comfortably HEENT: NCAT, EOMI, MMM, +JVD Cardiac: RRR, normal S1 & S2, no murmurs, pacemaker in left upper chest Respiratory: bibasilar crackles, diminished breath sounds throughout, no wheezing or rhonchi Abdomen: soft, NT, ND Extremity: 2+ radial and dorsalis pedis pulses,no edema, no calf tenderness Skin: [place], warm, dry, no visible rash, chronic venous stasis changes in the legs. Msk: strength 5/5 x4, normal tone, no spinal tenderness Neuro: normal speech, no focal deficits Psych: Normal mood and affect Labs and radiology : Reviewed. Assessment and plan: 74-year-old male with PMH including CAD S/P CABG, PAF on Eliquis, PPM, NK lymphocytosis with baseline leucocytosis of 15K to 20K follows with Dr Merino, Chronic hypotension with Systolic of 80s in cardiologists's office, esophageal cancer s/p surgery & chemoradiation, Diastolic CHF presented for gradually worsening dyspnea. He was found to have ilateral pleural efussin and bilateral basal infiltrates , he was febrile to 101. He was admitted for Pneumonia and septic shock with CHF exacerbation. Septic shock Vs chronic hypotension due to cardiogenic cause CRP 0.95 if procalcitonin is also not elevated will deescalte antibiotics. Suspected source is likely pneumonia. continue zosyn and vanco for now. MRSA screen negative Patient does have chronic hypotension so will target MAP of 60. Pro-calcitonin, CRP, sputum & blood cultures pending Pt high risk of Strep Pneumo given asplenic status, but reports compliance with Pneumococcal vaccine q5yrs Decompensated diastolic CHF Elevated BNP 4000+, edema, JVD, crackles, bilateral effusions on imaging Obtain outpatient cardiac records, follows Dr. Mims will hold off on diuresis for now and clinically he is not in any distress. NK Lymphocytosis patient has baseline leucocytosis of 15k to 20K follows with dr Merino Now up to 32K due to infection, chf. Tachyarrhythmia SVT upto 160 short duration spontaneously resolved. Compression fractures noted incidentally on CT. Pt denies back pain or any recent falls monitor and o/p f/u fall precautions in place NANCY on CKD III baseline Cr 1.2-1.3. Now 1.7 likely prerenal hold nephrotoxins & monitor CAD status post CABG Dual-chamber pacemaker 2/2 high degree AV block, 2013 Paroxysmal A. fib chronically on Eliquis continue Digoxin unable to tolerate BBlocker 2/2 chronically low bp as per pt JESSE unable to tolerate CPAP titrate supplemental O2 End-stage esophageal cancer S/P esophagectomy and chemotherapy & radiation [address] Merino & [place] Hypertension hold home Amiloride & Torsemide given pressor requirement Mitral valve repair at [facility] 2014 new echo ordered GERD continue PPI DVT ppx: chronically Eliquis Code status: discussed with pt and , and he confirms FULL CODE with compressions & intubation. VS,Fishbone, I+O VS, Fishbone, I+O Laboratory Tests 04/10/19 18:00 04/10/19 18:01 04/11/19 01:12 04/11/19 06:48 Vital Signs Date Time Temp Pulse Resp B/P (MAP) Pulse Ox O2 Delivery O2 Flow Rate FiO2 04/11/19 13:00 65 92/51 (65) 98 Room Air 04/11/19 12:00 98.2 18 04/11/19 05:31 1.0 I&O- Last 24 Hours up to 6 AM 04/11/19 06:00 Intake Total 1965 ml Output Total 300 ml Balance 1665 ml VIDA BOYD MD Apr 11, 2019 14:05
--- NOTE | 2019-04-12 10:09 | IPNPDOC ---
Text Note Date of Service The patient was seen on 04/12/19. NOTE Subjective: Feels a little better today , denies any SOB at rest, no fever or chills, nausea or vomiting or diarrhea. Physical Exam: Vitals : As below General exam: A&O 3, NAD, resting comfortably HEENT: NCAT, EOMI, MMM, +JVD Cardiac: RRR, normal S1 & S2, no murmurs, pacemaker in left upper chest Respiratory: few bibasilar crackles, diminished breath sounds throughout, no wheezing or rhonchi Abdomen: soft, NT, ND Extremity:,no edema, no calf tenderness Skin: [place], warm, dry, no visible rash, chronic venous stasis changes in the legs. Msk: strength 5/5 x4, normal tone, no spinal tenderness Neuro: normal speech, no focal deficits Psych: Normal mood and affect Labs and radiology : Reviewed. Assessment and plan: 74-year-old male with PMH including CAD S/P CABG, PAF on Eliquis, PPM, NK lymphocytosis with baseline leucocytosis of 15K to 20K follows with Dr Merino, Chronic hypotension with Systolic of 80s in cardiologists's office, esophageal cancer s/p surgery & chemoradiation, Diastolic CHF presented for gradually worsening dyspnea. He was found to have bilateral pleural effusion and bilateral basal infiltrates , he was febrile to 101. He was admitted for Pneumonia and septic shock with CHF exacerbation. Septic shock ruled out as crp not elevated and procalcitonin at 0.34 will deescalate antibiotics. Pneumonia community acquired will put on ceftriaxone and azithromycin. Chronic hypotension MAP between 60 to 65. will try to get off levophed. Anemia will check iron profile, vit b12 and folate. prbc transfusion. Decompensated diastolic CHF Elevated BNP 4000+, edema, JVD, crackles, bilateral effusions on imaging Obtain outpatient cardiac records, follows Dr. Mims will restart diuretics NK Lymphocytosis patient has baseline leucocytosis of 15k to 20K follows with dr Merino Was up to 32K due to infection, chf. now improving Tachyarrhythmia SVT upto 160 short duration spontaneously resolved. Compression fractures noted incidentally on CT. Pt denies back pain or any recent falls monitor and o/p f/u fall precautions in place NANCY on CKD III baseline Cr 1.2-1.3. Now 1.7 likely prerenal hold nephrotoxins & monitor CAD status post CABG Dual-chamber pacemaker 2/2 high degree AV block, 2014 Paroxysmal A. fib chronically on Eliquis continue Digoxin unable to tolerate BBlocker 2/2 chronically low bp as per pt JESSE unable to tolerate CPAP titrate supplemental O2 End-stage esophageal cancer S/P esophagectomy and chemotherapy & radiation [address] Merino & [place] Hypertension hold home Amiloride & Torsemide given pressor requirement Mitral valve repair at [facility] 2014 new echo ordered GERD continue PPI DVT ppx: chronically Eliquis Code status: discussed with pt and , and he confirms FULL CODE with compressions & intubation. VS,Fishbone, I+O VS, Fishbone, I+O Laboratory Tests 04/12/19 05:50 Vital Signs Date Time Temp Pulse Resp B/P (MAP) Pulse Ox O2 Delivery O2 Flow Rate FiO2 04/12/19 08:05 70 04/12/19 07:30 18 93/51 (65) 96 Room Air 04/12/19 04:32 1.0 04/12/19 04:00 98.3 I&O- Last 24 Hours up to 6 AM 04/12/19 06:00 Intake Total 1264.90 ml Output Total 650 ml Balance 614.90 ml VIDA BOYD MD Apr 12, 2019 10:09
[2019-04-12] MEDS ORDERED: ONDANSETRON 4MG/2ML VIAL (J2405) IV SCH (12:00)
--- NOTE | 2019-04-12 15:08 | CCN ---
DATE: 04/10/2019 CRITICAL CARE PROGRESS NOTE: The patient was seen and examined this morning during bedside rounds. The patient reports feeling somewhat improved this morning. He does not feel as short of breath as he was previously. He denies any chest pain. Has not had any significant coughing this morning or wheezing. Denies any abdominal pain. No nausea or vomiting. He denies noticing any increased lower extremity edema. Overnight the patient was able to be weaned off of the Levophed as his blood pressures had improved. PHYSICAL EXAMINATION: Temperature 98.3, pulse 72, respirations 18, blood pressure 93/51, oxygen saturation 96% on room air. General: The patient is a thin, frail male, is lying in bed, does not appear to be in any acute distress. Is able to speak in complete sentences without any using any accessory muscles. HEENT: Normocephalic, atraumatic. Pupils react to light bilaterally. There are moist mucous membranes noted and no lesions in the oropharynx. Neck is supple. Trachea is midline. There is no palpable cervical adenopathy. Cardiovascular: Regular rate and rhythm. Normal S1, S2. There is a loud heart sound splitting of the second heart sound. There is a pacemaker on the left upper chest noted. Respiratory: There are some diminished breath sounds at the bases but no significant wheezing or rhonchi and no rales. Abdomen is soft, nontender, nondistended. Extremities: There is trace ankle edema but no significant pitting edema bilaterally and no sacral edema. LABORATORY DATA: WBC improved to 23.0, hemoglobin trending down to 7.6, platelets 223. Chemistry: Sodium is 138, potassium 3.8, chloride 101, bicarbonate 32, BUN 26, creatinine improving to 1.52, glucose is 79. Sputum cultures: First sputum culture showed normal simón, second one is pending. Blood culture show no growth to date. Procalcitonin was 0.35. Echo showed evidence of RV volume overload and a dilated right ventricle with normal function. There is mild elevation of the RV systolic pressure and some mild right atrial dilation. Inferior vena cava (IVC) is dilated and there is evidence of hepatic congestion and bilateral pleural effusions. ASSESSMENT AND PLAN: Mr. Lam is a 74-year-old male with a past medical history of CAD, status post CABG, dual-chamber pacemaker secondary to high degree atrioventricular (AV) block, history of paroxysmal atrial fibrillation, obstructive sleep apnea (JESSE) not on continuous positive airway pressure (CPAP), history of esophageal cancer, status post esophagectomy with gastric pull-up, history of mitral valve repair, and previous history of splenectomy who presented with increased shortness breath and dyspnea. The patient was initially febrile in the emergency department (ED) as well as noted to have leukocytosis. He was started on antibiotics for sepsis with consideration for possible pneumonia given his initial imaging. The patient does have a history of NK cell lymphocytosis, and so he does have some chronically elevated white blood cell count at baseline. - The patient's sputum culture initially was negative and his blood culture showed no growth to date. His procalcitonin was only mildly elevated, and so his broad-spectrum antibiotics are being de-escalated to ceftriaxone and azithromycin. - The patient initially was hypotensive likely due to a component of septic shock, although he chronically has hypotension in the setting of his end-stage right heart failure. He was started on Levophed yesterday via a right internal jugular (IJ) triple lumen. However, he was able to be weaned off of the Levophed overnight and has been maintaining mean arterial pressures (MAPs) above 60-65. - The patient's hemoglobin has trended down today. Would give him 1 unit of packed red blood cells (PRBC) which will also help with his intravascular volume and blood pressure. His echo did show evidence of RV overload consistent with his chronic right-sided heart failure as well as a dilated IVC and some hepatic congestion. Will also restart his diuretics although at a slightly lower dose with 60 mg twice a day and taper up as needed. - The patient was noted have acute kidney injury (NANCY) on chronic kidney disease which has been improving slowly. He may have had a component of prerenal NANCY from his diuresis with the additional septic shock. Would continue to monitor his renal function and electrolytes and replete as needed. - Will check anemia workup with B12, folate, iron, and ferritin levels. - The patient's family has also reported the patient has been having episodes of confusion more recently as well as increased drowsiness and fatigue. He does have a history of hepatic congestion and his initial liver function tests (LFTs) were normal except for a mildly elevated bilirubin. Will repeat LFTs as well as an ammonia level as with his history of hepatic congestion he may have some liver dysfunction which could be contributing to his fatigue as well as some of his altered mental status. - The patient also has a history of sleep apnea and has been noncompliant with CPAP. Discussed with the family that this could also be contributing to some of his daytime sleepiness and fatigue. He previously had tried full face mask only and had not been tried with nasal pillows. We discussed that if he is interested now in restarting his CPAP that he can followup with us in pulmonary and be reinitiated on CPAP. He previously was seen by Dr. Matos in our office. Deep venous thrombosis (DVT) prophylaxis. The patient is on Eliquis. FULL CODE. Total critical care time spent not including any procedures approximately 55 minutes.
[2019-04-12 15:49] LABS: ALBUMIN 2.6 GM/DL (3.2-5.2); BILIRUBIN,DIRECT 0.3 MG/DL (0.0-0.2); BILIRUBIN,TOTAL 0.6 MG/DL (0.2-1.0); TOTAL PROTEIN 5.7 GM/DL (6.4-8.2)
[2019-04-12] MEDS: TORSEMIDE 20 MG TAB PO SCH (17:55)
[2019-04-13 06:00] VITALS: BP 100/54
[2019-04-13] MEDS: SODIUM CHLORIDE 0.9% INJ 10 ML SYR IV SCH ×3 (06:09→20:28)
[2019-04-13] MEDS: SODIUM CHLORIDE 0.9% INJ 10 ML SYR IV PRN ×2 (06:09→06:10)
[2019-04-13 06:33] LABS: HEMATOCRIT 28.3 % (42.0-52.0); HEMOGLOBIN 9.3 g/dl (13.5-17.5); MEAN CORPUSCULAR HEMOGLOBIN 35.4 pg (27.0-33.0); MEAN CORPUSCULAR HGB CONC 32.9 g/dl (32.0-36.5); MEAN CORPUSCULAR VOLUME 107.6 fl (80.0-96.0); PLATELET COUNT, AUTOMATED 247 10^3/uL (150-450); RED BLOOD COUNT 2.63 10^6/uL (4.30-6.10); WHITE BLOOD COUNT 19.2 10^3/uL (4.0-10.0)
[2019-04-13 06:54] LABS: CREATININE FOR GFR 1.27 MG/DL (0.70-1.30); MAGNESIUM LEVEL 2.1 MG/DL (1.8-2.4); POTASSIUM SERUM 3.7 MEQ/L (3.5-5.1)
[2019-04-13] MEDS: APIXABAN 5 MG TAB (ELIQUIS) PO SCH ×2 (08:09→20:28)
[2019-04-13] MEDS: AZITHROMYCIN 250 MG TAB PO SCH (08:09)
[2019-04-13] MEDS: PANTOPRAZOLE 40MG TAB (PROTONIX) PO SCH (08:10)
[2019-04-13] MEDS: DIGOXIN 0.125 MG TAB PO SCH (08:10)
[2019-04-13] MEDS: TORSEMIDE 20 MG TAB PO SCH ×2 (08:10→17:14)
[2019-04-13] MEDS: LACTOBACILLUS ACIDOPHILUS CAP (BACID) PO SCH ×3 (08:10→17:13)
[2019-04-13 10:00] VITALS: BP 91/51
[2019-04-13] MEDS: cefTRIAXone SOD 2 GM in D5W MINI-BAG PLUS 50 ML IV SCH (11:17)
[2019-04-13 14:00] VITALS: BP 91/51
--- NOTE | 2019-04-13 14:44 | CCN ---
DATE: 04/13/2019 CRITICAL CARE PROGRESS NOTE: The patient was seen and examined this morning during rounds. The patient did not have any events overnight. He denied any fevers or chills. Has not had any of shortness of breath. No chest pain. No nausea or vomiting. He was transfused 1 unit of packed red blood cells (PRBC) overnight. PHYSICAL EXAM: Temperature 97.7, pulse 83, respirations 16, blood pressure 154, oxygen saturation 98% on room air. Ins 1.7 liters, out 1.3 liters, net positive 420 mL. General: The patient is a thin, cachectic male who is lying in bed, does not appear to be in acute distress. Is able to speak in complete sentences without any respiratory distress or using any accessory muscles. HEENT is normocephalic, atraumatic. Pupils are reactive to light bilaterally. There are moist mucous membranes noted and no lesions in the oropharynx. Neck is supple. Trachea is midline. There is no palpable cervical adenopathy. Cardiovascular: Regular rate and rhythm. Normal S1, S2. There is a loud heart sound with splitting of the second heart sound. There is a pacemaker on the left upper chest noted. Respiratory: There are some decreased breath sounds at the bases with some mild rales, but no significant wheezing or rhonchi. Abdomen is soft, nondistended and nontender. Extremities: There is trace ankle edema bilaterally and trace edema in the shins. LABS: WBC of 19.2,hemoglobin 9.3, platelets 247. Chemistry: Sodium is 141, potassium 3.7, chloride is 102, bicarbonate 33, BUN 23, creatinine is 1.27, glucose 78. LFTs were within normal limits yesterday. ASSESSMENT AND PLAN: Mr. Lam is a 74-year-old male with a history of CAD status post coronary artery bypass graft (CABG), dual-chamber pacemaker secondary to high degree atrioventricular (AV) block, history of paroxysmal atrial fibrillation, obstructive sleep apnea (JESSE) not on continuous positive airway pressure (CPAP), history of esophageal cancer status post esophagectomy with a gastric pull-up, and history of mitral valve repair and a previous splenectomy who presented initially with increased shortness breath and dyspnea. The patient was febrile in the emergency department (ED) as well as noted to have increasing leukocytosis. 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 Given his fever however, there was concern for sepsis, possibly secondary to pneumonia given his initial imaging and the patient was started on broad-spectrum antibiotics as well as Levophed initially for component of hypotension possibly with septic shock. The patient's blood pressure improved and he was able to be weaned off of the Levophed. He was downgraded to floors yesterday. - The patient's blood pressure has remained stable off of pressors. He does have chronic hypotension at baseline and in the setting of his end-stage right heart failure. He was transfused 1 unit of PRBC yesterday given his anemia with appropriate response on his hemoglobin/hematocrit (H/H) this morning. - The patient had blood work done for evaluation of anemia. He will need to followup with his PMD as an outpatient for further evaluation of his of anemia possibly secondary to his chronic disease. - The patient's acute kidney injury (NANCY) on creatinine kinase (CK) has continued to improve. He likely had an initial component of prerenal NANCY from his chronic diuresis as well as with a component of sepsis. Would continue to monitor his renal function and replete his electrolytes as needed. - The patient was restarted on his torsemide at 60 mg twice a day yesterday. Today, he does have some slight increased in his edema in his lower extremities, and so we will increase him to torsemide 80 mg twice a day and continue to monitor his ins and outs and adjust his diuretics as needed. The patient follows with Dr. Mims as an outpatient for cardiology. - The patient has a history of sleep apnea and has previously been noncompliant with CPAP. He had previously tried full-face mask, which he was unable to tolerate, and it appears he may be interested now on trying CPAP with nasal pillow interface. He was seen previously by Dr. Matos, and he does agree to followup with us again as an outpatient for evaluation and restarting his CPAP for his sleep apnea. Deep venous thrombosis (DVT) prophylaxis, Eliquis. CODE STATUS: FULL CODE. Total critical care time spent not including procedures approximately 35 minutes. Please do not hesitate to call if any further questions or concerns MTDD
--- NOTE | 2019-04-13 16:08 | IPNPDOC ---
Text Note Date of Service The patient was seen on 04/13/19. NOTE Mr. Lam is in the hospital for treatment of pneumonia. He remains on cef triaxone and azithromycin. He appears to be clinically improving in that regard. He has ongoing complaint of diarrhea. He describes his stools as watery and yellow. He states he's had this problem for a while preceding this hospital stay with some relief but that it had improved. He now states it has increased significantly in frequency during this hospital stay. Physical exam: Please see vital signs HEENT: Neck is supple with no adenopathy or thyromegaly, has central line in place, oral mucosa is dry. Cardiovascular: Regular rate and rhythm. Respiratory: The patient has bilateral variably coarse breath sounds, no active cough or wheezing. Abdomen: Soft, flat, nontender, normal bowel tones, weight loss is apparent. Extremities: No peripheral edema or lesions, pedal pulses are palpable Assessment/plan: #1. Pneumonia. Patient remains on ceftriaxone and azithromycin. Most recent sputum culture is reporting a yeastlike like organism. We will wait for identification before changing treatment to determine whether this is a true pathogen. Leukocytosis is otherwise improving with white blood cell count decreasing from 23.0-19.1. #2. Diarrhea. Patient states he's had difficulty with this for a while. He does not recall having had any stool studies. Patient is at risk of C. difficile, so we will check stool. If it is negative, we can then allow the patient to have Imodium or Lomotil. #3. Poor by mouth intake; poor nutrition. The patient has had weight loss. Patient has reported poor by mouth intake at home. He does not like supplements such as Ensure. Family has tried protein [place] additives, but the patient does not always make his smoothies. We will ask for assessment and assistance from nutrition services. VS,Fishbone, I+O VS, Fishbone, I+O Laboratory Tests 04/13/19 06:18 Vital Signs Date Time Temp Pulse Resp B/P (MAP) Pulse Ox O2 Delivery O2 Flow Rate FiO2 04/13/19 08:10 83 04/13/19 06:00 97.7 16 100/54 (69) 98 Room Air 04/12/19 04:32 1.0 I&O- Last 24 Hours up to 6 AM 11/28/19 06:00 Intake Total 1856 ml Output Total 1500 ml Balance 356 ml BRIANA HUMPHREYS MD Apr 13, 2019 16:08
[2019-04-13 22:00] VITALS: BP 99/55
[2019-04-14] MEDS: SODIUM CHLORIDE 0.9% INJ 10 ML SYR IV SCH (05:23)
[2019-04-14 06:00] VITALS: BP 100/55
[2019-04-14 06:28] LABS: HEMATOCRIT 28.3 % (42.0-52.0); HEMOGLOBIN 9.3 g/dl (13.5-17.5); MEAN CORPUSCULAR HEMOGLOBIN 34.8 pg (27.0-33.0); MEAN CORPUSCULAR HGB CONC 32.9 g/dl (32.0-36.5); PLATELET COUNT, AUTOMATED 273 10^3/uL (150-450); RED BLOOD COUNT 2.67 10^6/uL (4.30-6.10); WHITE BLOOD COUNT 15.5 10^3/uL (4.0-10.0)
[2019-04-14 06:48] LABS: BLOOD UREA NITROGEN 21 MG/DL (7-18); CALCIUM LEVEL 8.1 MG/DL (8.8-10.2); CARBON DIOXIDE LEVEL 35 MEQ/L (21-32); CHLORIDE LEVEL 100 MEQ/L (98-107); CREATININE FOR GFR 1.23 MG/DL (0.70-1.30); GLOMERULAR FILTRATION RATE > 60.0 (>42); GLUCOSE, FASTING 77 MG/DL (70-100); MAGNESIUM LEVEL 1.9 MG/DL (1.8-2.4); POTASSIUM SERUM 3.3 MEQ/L (3.5-5.1); SODIUM LEVEL 141 MEQ/L (136-145)
[2019-04-14] MEDS: LACTOBACILLUS ACIDOPHILUS CAP (BACID) PO SCH ×2 (08:03→12:41)
[2019-04-14] MEDS: DIGOXIN 0.125 MG TAB PO SCH (08:03)
[2019-04-14] MEDS: TORSEMIDE 20 MG TAB PO SCH (08:03)
[2019-04-14] MEDS: APIXABAN 5 MG TAB (ELIQUIS) PO SCH (08:03)
[2019-04-14] MEDS: AZITHROMYCIN 250 MG TAB PO SCH (08:03)
[2019-04-14] MEDS: PANTOPRAZOLE 40MG TAB (PROTONIX) PO SCH (08:03)
[2019-04-14] MEDS: cefTRIAXone SOD 2 GM in D5W MINI-BAG PLUS 50 ML IV SCH (10:35)
[2019-04-14] MEDS ORDERED: TORS20TA2 PO (11:23)
[2019-04-14] MEDS ORDERED: CEFD1CAP8 PO (11:23)
[2019-04-14] MEDS ORDERED: AZIT-12 PO (11:23)
[2019-04-14] MEDS ORDERED: POTASSIUM CHLORIDE 10 MEQ SR TABLET PO ONE (12:15)
--- NOTE | 2019-04-14 17:42 | DS.PDOC ---
Discharge Summary General Date of Admission Apr 10, 2019 at 21:12 Date of Discharge April 14, 2019 Specialist/Consultants Involve: TONY SMITH MD Discharge Summary PROCEDURES PERFORMED DURING STAY: Echocardiogram, Blood transfusion. ADMITTING DIAGNOSES: Sepsis with shock, pneumonia. DISCHARGE DIAGNOSES: Sepsis with shock resolved, pneumonia-no discrete organism identified, coronary artery disease, chronic atrial fibrillation, chronic kidney disease stage III, anemia of chronic disease, essential hypertension, mitral valve heart disease, iron deficiency, protein calorie malnutrition, history of esophageal cancer COMPLICATIONS/CHIEF COMPLAINT: Pneumonia, Sepsis. HISTORY OF PRESENT ILLNESS/HOSPITAL COURSE: This is a 74-year-old male with a medical history remarkable for surgical intervention for esophageal cancer. The patient had been having worsening shortness of breath at home. It was accompanied by chills, orthopnea and cough. Upon evaluation in the emergency room he was found to be febrile to 101.4. He was also noted to have leukocytosis, tachycardia and hypotension. Patient met criteria for sepsis with shock. Etiology was felt to be due to pulmonary infection or pneumonia. Patient was admitted to the ICU and placed on pressors after central line placement. He initially received empiric antibiotics in the form of Zosyn and Vanco. He was seen by the pulmonary service. Antibiotics were de-escalated to ceftriaxone and azithromycin. Pleural effusions were also identified. The patient did improve to where he no longer required pressors. He was able to be transitioned out of the intensive care unit. Patient received blood transfusion in response to depleted hemoglobin of 7.6 and serum iron of 25. Leukocytosis improved as did his hemoglobin. The patient reported he had been having episodes of diarrhea at home prior to admission and had been having them during his hospital stay. We did obtain stool studies, which were negative for pathogens including C. difficile. Note was also made of protein calorie malnutrition with a serum protein of 5.7, and serum albumin of 2.6; BMI is noted to be 17.6. Oral intake was poor during this hospital stay. We were not able to take advantage of a nutrition services consult during this hospital stay.. DISCHARGE MEDICATIONS: Please see below. ALLERGIES: Please see below. PHYSICAL EXAMINATION ON DISCHARGE: VITAL SIGNS: Please see below. GENERAL: Patient is frail to appearance with a thin body habitus HEENT: Neck is supple with no adenopathy or thyromegaly, has central line in dea ce, oral mucosa is dry. Cardiovascular: Regular rate and rhythm. Respiratory: The patient has bilateral variably coarse breath sounds, no active cough or wheezing. Abdomen: Soft, flat, nontender, normal bowel tones, weight loss is apparent. Extremities: No peripheral edema or lesions, pedal pulses are palpable LABORATORY DATA: Please see below. IMAGING: CHEST XRAY . Bibasilar atelectasis/infiltrates along with moderate pleural effusions and suspected partial collapse to the left lower lobe and right lower lobe suggested. Impression: Moderate pleural effusions with bibasilar atelectasis and bibasilar partial collapse. Electronically Signed by Chun Plascencia MD 04/11/2019 07:28 A PROGNOSIS: ACTIVITY: As tolerated. DIET: As tolerated DISCHARGE PLAN: Patient is discharged to home; he is to follow-up with the pulmonary service within 1 week and also with cardiology service within a week. Durable medical equipment included a walker; patient did not require home O2. DISPOSITION: 01 Home, Self-Care. DISCHARGE INSTRUCTIONS: 1. . ITEMS TO FOLLOWUP ON ON OUTPATIENT: 1. . DISCHARGE CONDITION: Stable. TIME SPENT ON DISCHARGE: 40 minutes. Vital Signs/I&Os Vital Signs Date Time Temp Pulse Resp B/P (MAP) Pulse Ox O2 Delivery O2 Flow Rate FiO2 04/14/19 08:03 70 04/14/19 06:00 98.0 16 100/55 (70) 97 04/13/19 14:00 Nasal Cannula 1.0 I&O- Last 24 Hours up to 6 AM 04/14/19 08:00 Intake Total 1440 ml Output Total 750 ml Balance 690 ml Laboratory Data Labs 24H Laboratory Tests 2 04/14/19 05:25: Nucleated Red Blood Cells % (auto) 0.2H, Anion Gap 6L, Glomerular Filtration Rate > 60.0, Calcium Level 8.1L, Magnesium Level 1.9 CBC/BMP Laboratory Tests 04/14/19 05:25 Microbiology Microbiology 04/13/19 Gastrointestinal Tract Panel (PCR) - Final, Complete 04/11/19 Gram Stain - Final, Complete 04/11/19 Sputum Culture - Final, Complete Yeast Like Organism 04/10/19 Blood Culture - Preliminary, Resulted No Growth after 72 hours. All specime... 04/10/19 Gram Stain - Final, Complete 04/10/19 Sputum Culture - Final, Complete 04/10/19 Respiratory Virus Panel (PCR) (ADRIANA) - Final, Complete 04/10/19 Blood Culture - Preliminary, Resulted No Growth after 72 hours. All specime... Discharge Medications Scheduled Amiloride HCl (Amiloride HCl) 5 Mg Tab, 5 MG PO DAILY, (Reported) Apixaban (Eliquis) 5 Mg Tablet, 5 MG PO BID, (Reported) Azithromycin (Azithromycin) 250 Mg Tablet, 500 MG PO DAILY Cefdinir (Cefdinir) 300 Mg Capsule, 300 MG PO BID Digoxin (Digoxin) 125 Mcg Tablet, 125 MCG PO DAILY, (Reported) Pantoprazole Sodium (Pantoprazole Sodium) 40 Mg Tab, 40 MG PO DAILY, (Reported) Torsemide (Torsemide) 20 Mg Tablet, 80 MG PO BID@ Allergies Coded Allergies: No Known Allergies (Unverified , 09/13/18) BRIANA HUMPHREYS MD Apr 14, 2019 17:42
== END 2019-04-14 14:03 | disposition home or self-care (01) | DRG 871 ==
LOC: M ED 16:46 → M ED INP 21:12 → M ICU 21:55 → M MSPAV 04-12 16:50
PROVIDERS: ADMIT Internal Medicine; ATTEND Internal Medicine
PROC: 02HV33Z Insertion of Infusion Device into Superior Vena Cava, Percutaneous Approach (ICD-10-PCS; 2019-04-10)
PROC: 30233N1 Transfusion of Nonautologous Red Blood Cells into Peripheral Vein, Percutaneous Approach (ICD-10-PCS; principal; 2019-04-12)
DX: A41.9 Sepsis, unspecified organism (principal); R65.21 Severe sepsis with septic shock; J18.9 Pneumonia, unspecified organism; I50.31 Acute diastolic (congestive) heart failure; N17.9 Acute kidney failure, unspecified; I13.0 Hypertensive heart and chronic kidney disease with heart failure and stage 1 through stage 4 chronic kidney disease, or unspecified chronic kidney disease; I48.0 Paroxysmal atrial fibrillation; I25.10 Atherosclerotic heart disease of native coronary artery without angina pectoris; N18.3 Chronic kidney disease, stage 3 (moderate); D63.1 Anemia in chronic kidney disease; Z85.01 Personal history of malignant neoplasm of esophagus; Z79.899 Other long term (current) drug therapy; Z95.1 Presence of aortocoronary bypass graft; Z95.0 Presence of cardiac pacemaker; G47.33 Obstructive sleep apnea (adult) (pediatric); Z90.81 Acquired absence of spleen; Z90.49 Acquired absence of other specified parts of digestive tract; K21.9 Gastro-esophageal reflux disease without esophagitis; Z79.01 Long term (current) use of anticoagulants; R19.7 Diarrhea, unspecified

== ENCOUNTER → 2019-04-24 | Outpatient (REF) | payer MEDICARE ==
[~2019-04-24] MED LIST changes: +AZIT-12 PO; +CEFD1CAP8 PO; +DIGO0.123 PO; +SERT25TA21 PO; +TORS100T PO; +ZOLO25TA PO
== END ==
LOC: M LAB REF 15:49
PROVIDERS: ATTEND Registered Nurse
DX: R19.7 Diarrhea, unspecified (principal)

== ENCOUNTER 2019-04-26 20:59 | Inpatient (IN) | payer MEDICARE ==
[~2019-04-26] VITALS: Ht 180.3 cm; Wt 57.1 kg
[~2019-04-26 20:59] MED LIST changes: -SERT25TA21 PO; -ZOLO25TA PO
[2019-04-26] MEDS ORDERED: ZOLO25TA PO (21:23)
[2019-04-26 22:51] LABS: HEMATOCRIT 29.7 % (42.0-52.0); HEMOGLOBIN 9.7 g/dl (13.5-17.5); MEAN CORPUSCULAR HEMOGLOBIN 34.4 pg (27.0-33.0); MEAN CORPUSCULAR HGB CONC 32.7 g/dl (32.0-36.5); MEAN CORPUSCULAR VOLUME 105.3 fl (80.0-96.0); PLATELET COUNT, AUTOMATED 370 10^3/uL (150-450); RED BLOOD COUNT 2.82 10^6/uL (4.30-6.10)
[2019-04-26 22:53] LABS: VENOUS BASE EXCESS 8.6 (-2.0-2.0); VENOUS HCO3 34.2 MEQ/L (23.0-27.0); VENOUS O2 SATURATION 47.9 % (60.0-80.0); VENOUS PARTIAL PRESSURE CO2 52.4 mmHg (38.0-50.0); VENOUS PARTIAL PRESSURE O2 27.3 mmHg (30.0-50.0); VENOUS PH 7.432 UNITS (7.330-7.430); VENOUS STANDARD HCO3 31.4 MEQ/L; VENOUS TOTAL CO2 35.8 MEQ/L (24.0-28.0); WHITE BLOOD COUNT 26.2 10^3/uL (4.0-10.0)
[2019-04-26 23:21] LABS: ATYPICAL LYMPH 13 % (0-5); LYMPHOCYTES 79 % (16-44); MONOCYTES 4 % (0-5); NEUTROPHILS 4 % (28-66)
[2019-04-26 23:23] LABS: ANISOCYTOSIS 2+; PLATELET ESTIMATE NORMAL (NORMAL)
[2019-04-26 23:24] LABS: POIKILOCYTOSIS 1+; SCHISTOCYTES 1+
[2019-04-26 23:29] LABS: ALBUMIN 3.2 GM/DL (3.2-5.2); ALT/SGPT 18 U/L (12-78); BILIRUBIN,DIRECT 0.4 MG/DL (0.0-0.2); BLOOD UREA NITROGEN 34 MG/DL (7-18); CALCIUM LEVEL 9.5 MG/DL (8.8-10.2); CARBON DIOXIDE LEVEL 36 MEQ/L (21-32); CHLORIDE LEVEL 96 MEQ/L (98-107); CK-MB VALUE MASS < 1.0 NG/ML (<3.6); CPK CREATINE PHOSPHOKINASE 15 U/L (39-308); CREATININE FOR GFR 1.84 MG/DL (0.70-1.30); GLOMERULAR FILTRATION RATE 38.5 (>42); GLUCOSE, FASTING 85 MG/DL (70-100); MB/CK RELATIVE INDEX 6.67 (< OR =4); NT-PRO BNP 3448 PG/ML (<125); POTASSIUM SERUM 4.7 MEQ/L (3.5-5.1); SODIUM LEVEL 139 MEQ/L (136-145); THYROXINE (T4) 8.3 UG/DL (4.5-12.0); TOTAL PROTEIN 6.4 GM/DL (6.4-8.2); TROPONIN I 0.04 NG/ML (< 0.10)
[2019-04-27] VITALS (11 sets, daily range): BP systolic 83–103; BP diastolic 50–58
--- NOTE | 2019-04-27 00:08 | REPVR ---
PROCEDURE INFORMATION: Exam: CT Chest Without Contrast Exam date and time: 04/26/2019 11:35 PM Age: 74 years old Clinical history: Shortness of breath; Additional info: SOB, pleural effusions on cxr TECHNIQUE: Imaging protocol: Computed tomography of the chest without contrast. 3D rendering: MIP reconstructed images were created and reviewed. Radiation optimization: All CT scans at this facility use at least one of these dose optimization techniques: automated exposure control; mA and/or kV adjustment per patient size (includes targeted exams where dose is matched to clinical indication); or iterative reconstruction. COMPARISON: CT Chest without contrast 04/10/2019 7:04 PM FINDINGS: Tubes, catheters and devices: Pacemaker in position from the left. Lungs: Mild bilateral lower lobe compressive atelectasis. Pleural space: Moderate right pleural effusion and mild left pleural effusion. Heart: Status post sternotomy and CABG. Pulmonary arteries: The main pulmonary artery measures 23 mm. Aorta: The ascending thoracic aorta measures 32 mm. Lymph nodes: Unremarkable. No enlarged lymph nodes. Kidneys and ureters: Probable nonobstructing left renal calculi. Left renal cysts measuring up to 4.0 cm. Stomach and bowel: Extension of the stomach into the chest with suture lines suggesting a gastric pull-through. Bones/joints: Mild diffuse compression of T11 and mild superior endplate depression of T8 which appear to be chronic. Soft tissues: Unremarkable. IMPRESSION: 1. Moderate right and mild left pleural effusions with mild secondary atelectasis of the lower lobes bilaterally. 2. Status post sternotomy and CABG and pacemaker in position. 3. Suggestion of gastric pull-through. Electronically signed by: Earl Haines On 04/27/2019 00:07:43 AM
[2019-04-27] MEDS ORDERED: PIPERACILLIN/TAZOBACTAM SOD 3.375 GM in D5W MINI-BAG PLUS 50 ML IV ONE ×2 (00:45→07:00)
[2019-04-27] MEDS ORDERED: NS 500 ML IV ONE ×2 (00:45→14:45)
[2019-04-27] MEDS ORDERED: TORS20TA2 PO (01:01)
[2019-04-27] MEDS ORDERED: SERT25TA21 PO (01:01)
--- NOTE | 2019-04-27 01:03 | HPEPDOC ---
[facility] Medical History & Physical Date of Admission Apr 27, 2019 Date of Service: Apr 27, 2019 Primary Care Physician: Jr Bahena Collins Attending Physician: LEYDI RAWLS MD History and Physical TIME OF SERVICE: 4:45 AM CHIEF COMPLAINT: Shortness of breath HISTORY OF PRESENT ILLNESS: This is a 74-year-old male who presents with complaints of shortness of breath for over 2 weeks. This made worse when he exerts himself in better when he rests. Associated symptoms include a cough productive of white sputum. He denies having chest pain, fever, chills, congestion, nausea, vomiting, diarrhea, feeling dizzy. He also reported having loose stools recently with less than 3 darian wel movements per day. REVIEW OF SYSTEMS: 12 point review of systems negative except as listed in HPI PAST MEDICAL/ SURGICAL HISTORY: Esophageal CA diagnosed 20 years ago, esophagectomy with anastomosis to the stomach, with adjuvant chemotherapy and radiation Chronic diastolic congestive heart failure. Paroxysmal atrial fibrillation status post cryo-maze & left atrium and left atrial appendage clipping. High-grade second-degree AV block Dual-chamber pacemaker. Bifascicular block Non-rheumatic mitral valve regurgitation status post mitral valve replacement with annuloplasty ring. Tricuspid regurgitation/prolapse. Aortic valve regurgitation. Osteoporosis /chronic T8 & T12 compression fractures CKD I/II? 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 Sleep apnea. Asplenia secondary surgical complications Protein calorie malnutrition. Status post hernia repair SOCIAL HISTORY: Nonsmoker FAMILY HISTORY: Heart disease ALLERGIES: Please see below. HOME MEDICATIONS: Please see below. PHYSICAL EXAMINATION: VITAL SIGNS: Please see below. GEN: Slim build / well developed/ NAD INTEGUMENT: not flushed/ not jaundice / he has post laparotomy in post sternotomy scars & multiple skin tags HEENT: normocephalic / atraumatic / lips acyanotic /mucus membranes dry/ temporal wasting CVS: RRR/he has a systolic murmur/ he has prominent JVP /a dual chamber pacemaker is palpable at his left upper chest/ no lower extremity edema LUNGS: / able to speak full sentences without stopping to take a breath / no coughing / lungs are clear to auscultation bilaterally on room air ABDOMEN: His abdomen is scaphoid /there are no masses / bowel sounds are present / the abdomen is soft & not tender with palpation MSK/EXTREMITIES: range of motion intact in all 4 extremities / no scoliosis / no kyphosis NEURO: CN 2-12 are grossly intact / speech is not dysarthric PSYCH: alert and oriented to person place and time/ able to understand and follow all commands LABORATORY DATA: See below. IMAGING: [facility] shows " IMPRESSION: 1. Moderate right and mild left pleural effusions with mild secondary atelectasis of the lower lobes bilaterally. 2. Status post sternotomy and CABG and pacemaker in position. 3. Suggestion of gastric pull- through. " Chest x-ray shows large bilateral pleural effusions but the final read is pending MICROBIOLOGY: Please see below. ASSESSMENT: Mr. Lam is a 74 yr old with a past medical history of chronic diastolic congestive heart failure, esophageal cancer remission, paroxysmal atrial fibrillation, second-degree AV block, mitral valve regurgitation with mitral va lve repair, osteoporosis, CKD I/II?, NK cell lymphocytosis, sleep apnea, and protein donavon malnutrition will be admitted for evaluation of SIRS, hypoxemic hypercarbic respiratory failure, and bilateral pleural effusions. PLAN: 1. SIRS vs Sepsis secondary to pneumonia? SIRS criteria include a respiratory rate of 22 and WBC count of 26.2 I'm not sure this is sepsis because is no CBC count is chronically elevated His lactic acid is 3.5 Sepsis protocol was initially in the ER, he received Zosyn and IV fluids Plan: Admit to PCU/ telemetry / follow-up repeat lactic acid/continue Zosyn and IV fluids/ Acetaminophen PRN for fever / target MAP 65 to 70 mmHG / f/u Is and Os with target UOP of atleast 0.5 ml/kg/H / target serum glucose 140-180 while acutely ill 2. Hypoxemic hypercarbic respiratory failure ABG reviewed Plan: Admit to PCU/supplemental oxygen/continous pulse oximetry/follow-up repeat ABG/treated for possible pneumonia 2. Dyspnea, likely secondary to bilateral pleural effusions The effusions may be due to pneumonia vs heart failure vs malignant process Plan: Follow-up lateral decubitus x-ray pending results, the daytime team may consider IR consult for thoracentesis to definitively determine the source of the effusions / continue antibiotics for possible pneumonia pending pro- calcitonin 3. Primary metabolic alkalosis with compensated respiratory acidosis Possibly due to loose stools Plan: Follow-up C. difficile 4. NANCY on CKD I/II? Acute Renal Failure May be due to: prerenal azotemia -baseline Cr 1.23--> today it is 1.84 Baseline GFR is greater than 60--> today is 38.5 Plan: Is/Os / continue with IV fluids / f/u BMP UA, ulytes for FENa or FEUrea / if his renal function does not improve, the daytime team may consider ordering a renal ultrasound renal US 5. Macrocytic anemia Hemoglobin is currently, his baseline Plan: Follow-up CBC 6. Chronic diastolic congestive heart failure. Per chart review, he is to have a history of hypertension Plan: Continue torsemide 7. Paroxysmal atrial fibrillation Plan: Continue with digoxin and apixaban 8. Osteoporosis /chronic T8 & T12 compression fractures Plan: Follow-up with PCP for workup for osteoporosis and to start meds 9. Sleep apnea. Plan: May use, on CPAP 10 .Protein calorie malnutrition. BMI 16.5 DVT prophylaxis with Lovenox. Disposition likely home after more than 2 midnight's stay Vital Signs Vital Signs Date Time Temp Pulse Resp B/P (MAP) Pulse Ox O2 Delivery O2 Flow Rate FiO2 04/26/19 23:47 69 17 87/52 (64) 95 Room Air 04/26/19 22:30 97.6 Laboratory Data Labs 24H Laboratory Tests 2 04/26/19 22:30: Lymphocytes # (Auto) , Nucleated Red Blood Cells % (auto) 0.2H, Neutrophils 4L, Lymphocytes (Manual) 79H, Monocytes (Manual) 4, Atypical Lymphocytes 13H, Poikilocytosis 1+, Anisocytosis 2+, Macrocytosis 1+, Schistocytes 1+, Platelet Estimate NORMAL, Blood Gas Bicarbonate Standard 31.4, Venous Blood pH 7.432H, Venous Blood Partial Pressure CO2 52.4H, Venous Blood Partial Pressure O2 27.3L, Venous Blood Total Carbon Dioxide 35.8H, Venous Blood HCO3 34.2H, Venous Blood Oxygen Saturation 47.9L, Venous Blood Base Excess 8.6H, Anion Gap 7L, Glomerular Filtration Rate 38.5L, Lactic Acid Level 3.5*H, Calcium Level 9.5, Total Bilirubin 1.0, Direct Bilirubin 0.4H, Aspartate Amino Transf (AST/SGOT) 32, Alanine Aminotransferase (ALT/SGPT) 18, Alkaline Phosphatase 99, Total Creatine Kinase 15L, Creatine Kinase MB < 1.0, Creatine Kinase MB Relative Index 6.67H, Troponin I 0.04, LN-Qts-G-Type Natriuretic Peptide 3448H, Total Protein 6.4, Albumin 3.2, Albumin/Globulin Ratio 1.00, Thyroid Stimulating Hormone (TSH) 2.490, Thyroxine (T4) 8.3, Digoxin Level 1.9 CBC/BMP Laboratory Tests 04/26/19 22:30 Microbiology Microbiology 04/26/19 Blood Culture, Received Pending 04/26/19 Blood Culture, Received Pending Home Medications Scheduled Amiloride HCl (Amiloride HCl) 5 Mg Tab, 5 MG PO DAILY Apixaban (Eliquis) 5 Mg Tablet, 5 MG PO BID Digoxin (Digoxin) 125 Mcg Tablet, 125 MCG PO DAILY Pantoprazole Sodium (Pantoprazole Sodium) 40 Mg Tab, 40 MG PO DAILY Sertraline HCl (Sertraline HCl) 25 Mg Tablet, 25 MG PO DAILY Torsemide (Torsemide) 20 Mg Tablet, 80 MG PO BID Allergies Coded Allergies: No Known Allergies (Unverified , 09/13/18) A-FIB/CHADSVASC A-FIB History Current/History of A-Fib/PAF?: Yes Current PO Anticoag Therapy: Yes LEYDI RAWLS MD Apr 27, 2019 01:03
[2019-04-27] MEDS: NS 1,000 ML IV SCH ×2 (03:53→18:06)
[2019-04-27] MEDS: PIPERACILLIN/TAZOBACTAM SOD 2.25 GM in D5W MINI-BAG PLUS 50 ML IV SCH ×3 (07:00→19:41)
--- NOTE | 2019-04-27 08:12 | REP ---
Portable chest x-ray: Single view. History: Dyspnea and cough. Comparison study: April 10, 2019. Findings: The patient is status post prior median sternotomy. There is evidence of a cardiac valve replacement which appears to be mitral. Multi lead pacemaker is noted in place and there is a left atrial appendage clip. Mild cardiomegaly is observed. There is blunting of the pleural angles bilaterally indicating small bilateral pleural effusions. This is similar to the April 10, 2019 prior radiographs. No acute infiltrate is seen. Electronically Signed by Darien Rebolledo MD 04/27/2019 08:03 A
--- NOTE | 2019-04-27 08:15 | REP ---
CHEST X-RAY: Two views. HISTORY: Determine size of pleural effusion prior to a thoracentesis. Comparison study April 26, 2019. FINDINGS: Two right side down decubitus views of the chest are presented. There is layering of the right pleural effusion along the right lateral chest wall. The left pleural angle blunting does not resolve with decubitus positioning. Increased density is again seen behind the heart. Median sternotomy and pacemaker wires. IMPRESSION: There is some layering of right pleural fluid. Electronically Signed by Darien Rebolledo MD 04/27/2019 01:06 P
[2019-04-27] MEDS ORDERED: SERTRALINE HCL 25 MG TABLET PO SCH (09:00)
[2019-04-27] MEDS: TORSEMIDE 20 MG TAB PO SCH (09:00)
[2019-04-27] MEDS: PANTOPRAZOLE 40MG TAB (PROTONIX) PO SCH (09:11)
[2019-04-27] MEDS: APIXABAN 5 MG TAB (ELIQUIS) PO SCH (09:12)
[2019-04-27] MEDS: DIGOXIN 0.125 MG TAB PO SCH (09:12)
[2019-04-27] MEDS: aMILoride 5 MG TAB PO SCH (10:17)
[2019-04-27 14:16] LABS: APPEARANCE, URINE CLEAR (CLEAR); BACTERIA, URINE AUTO NEGATIVE (NEGATIVE); BILIRUBIN, URINE AUTO NEGATIVE (NEGATIVE); BLOOD, URINE BLOOD 1+ (NEGATIVE); COLOR, URINE YELLOW (YELLOW); GLUCOSE, URINE (UA) AUTO NEGATIVE (NEGATIVE); KETONE, URINE AUTO NEGATIVE (NEGATIVE); LEUKOCYTE ESTERASE, URINE AUTO NEGATIVE (NEGATIVE); NITRITE, URINE AUTO NEGATIVE (NEGATIVE); PROTEIN, URINE AUTO NEGATIVE (NEGATIVE); RBC, URINE AUTO 1 /HPF (0-3); SPECIFIC GRAVITY URINE AUTO 1.012 (1.002-1.035); SQUAMOUS EPITHELIAL CELL UR AU 0 /HPF (0-6); UROBILINOGEN, URINE AUTO 0.2 mg/dL (0.0-2.0); WBC, URINE AUTO 2 /HPF (0-3)
[2019-04-27 14:38] LABS: CREATININE,RANDOM URINE 65.7 MG/DL; SODIUM,RANDOM URINE 22 MEQ/L; UREA NITROGEN RANDOM URINE 495 MG/DL
[2019-04-27] MEDS ORDERED: VANCOMYCIN HCL 1,000 MG, VIAL MATE ADAPTER 1 EACH in D5W 250 ML IV SCH (15:30)
[2019-04-27] MEDS ORDERED: VANCOMYCIN HCL 500 MG in D5W MINI-BAG PLUS 100 ML IV ONE (16:00)
[2019-04-27] MEDS ORDERED: VANCOMYCIN HCL 750 MG, VIAL MATE ADAPTER 1 EACH in D5W 250 ML IV ONE (17:00)
--- NOTE | 2019-04-27 19:58 | PHACANCOPD ---
PHARMACY VANCOMYCIN DOSING Pt Demographics Demographics Patient Age:74 , Weight:53.600 , Gender: male Adjusted Body Weight Events Past 24 Hours Events Past 24 Hours: NO: Dialysis, Diuretic Therapy, Change in CrCl, Fever, Elevation in WBC, Pending Diagnostics, Pending Procedures, Other Vancomycin Vancomycin indication: PNEUMONIA Vancomycin Target Ranges: 15-20 mcg/ml Vancomycin Load Y/N: Yes Load Dose Date Time Vancomycin Load Dose: 1250MG Date: 04/27/19 Time: 1600 Vancomycin Dose Date: 04/27/19. Current Vancomycin Dose:1750MG Q24H Intermittent Dosing?: No Labs Labs Vital Signs Date Time Temp Pulse Resp B/P (MAP) Pulse Ox O2 Delivery O2 Flow Rate FiO2 04/27/19 18:09 101/53 (69) 04/27/19 18:00 98.7 69 17 101/53 (69) 96 Room Air 04/27/19 17:00 101/53 (69) 04/27/19 16:18 103/53 (70) 04/27/19 15:20 95/56 (69) 04/27/19 15:07 93/54 (67) 04/27/19 15:01 98.7 58 15 83/50 (61) 93 Room Air 04/27/19 14:34 62 16 84/50 (61) 98 Room Air 04/27/19 12:55 97.6 61 14 98/55 (69) 98 Room Air 04/27/19 09:12 60 04/27/19 08:04 97.6 62 22 98/58 (71) 96 Room Air 04/27/19 06:02 58 04/27/19 06:00 84/51 (62) 04/27/19 05:47 57 04/27/19 05:45 91/55 (67) 04/27/19 05:32 58 04/27/19 05:30 89/53 (65) 04/27/19 05:17 57 04/27/19 05:15 89/53 (65) 04/27/19 05:02 57 04/27/19 05:00 88/52 (64) 04/27/19 04:47 59 04/27/19 04:45 85/49 (61) 04/27/19 04:32 57 04/27/19 04:30 90/54 (66) 04/27/19 04:17 58 04/27/19 04:15 97/52 (67) 04/27/19 04:02 59 04/27/19 04:00 81/42 (55) 04/27/19 03:47 59 04/27/19 03:45 87/51 (63) 04/27/19 03:32 59 04/27/19 03:30 83/45 (58) 04/27/19 03:17 58 04/27/19 03:15 86/50 (62) 04/27/19 03:02 58 04/27/19 03:00 82/48 (59) 04/27/19 02:47 59 04/27/19 02:45 80/47 (58) 04/27/19 02:32 57 04/27/19 02:30 82/48 (59) 04/27/19 02:17 61 04/27/19 02:15 84/49 (61) 04/27/19 02:02 58 04/27/19 02:00 86/50 (62) 04/27/19 01:47 58 04/27/19 01:45 87/52 (64) 04/27/19 01:32 58 04/27/19 01:30 90/52 (65) 04/27/19 01:17 62 04/27/19 01:15 88/53 (65) 04/27/19 01:02 60 04/27/19 01:00 85/49 (61) 04/27/19 00:47 62 04/27/19 00:45 87/51 (63) 04/27/19 00:32 61 04/27/19 00:30 91/54 (66) 04/27/19 00:17 63 04/27/19 00:15 91/54 (66) 04/27/19 00:02 61 04/26/19 23:47 69 17 87/52 (64) 95 Room Air 04/26/19 23:45 69 04/26/19 23:30 69 100/56 (71) 04/26/19 23:15 62 90/52 (65) 04/26/19 23:00 61 87/54 (65) 04/26/19 22:45 61 89/53 (65) 04/26/19 22:30 60 88/51 (63) 04/26/19 22:30 97.6 18 04/26/19 22:29 60 22 93/53 (66) 97 Room Air 04/26/19 22:15 93/53 (66) 04/26/19 22:14 63 04/26/19 22:00 101/56 (71) 04/26/19 21:59 66 04/26/19 21:45 97/54 (68) 04/26/19 21:44 62 98 04/26/19 21:33 103/52 (69) 04/26/19 21:29 68 96 04/26/19 21:17 96/50 (65) Laboratory Tests 04/26/19 22:30: White Blood Count 26.2H, Red Blood Count 2.82L, Hemoglobin 9.7L, Hematocrit 29.7L, Mean Corpuscular Volume 105.3H, Mean Corpuscular Hemoglobin 34.4H, Mean Corpuscular Hemoglobin Concent 32.7, Red Cell Distribution Width 20.0H, Platelet Count 370, Lymphocytes # (Auto) , Nucleated Red Blood Cells % (auto) 0.2H, Mayo trophils 4L, Lymphocytes (Manual) 79H, Monocytes (Manual) 4, Atypical Lymphocytes 13H, Poikilocytosis 1+, Anisocytosis 2+, Macrocytosis 1+, Schistocytes 1+, Platelet Estimate NORMAL, Blood Gas Bicarbonate Standard 31.4, Venous Blood pH 7.432H, Venous Blood Partial Pressure CO2 52.4H, Venous Blood Partial Pressure O2 27.3L, Venous Blood Total Carbon Dioxide 35.8H, Venous Blood HCO3 34.2H, Venous Blood Oxygen Saturation 47.9L, Venous Blood Base Excess 8.6H, Sodium Level 139, Potassium Level 4.7, Chloride Level 96L, Carbon Dioxide Level 36H, Anion Gap 7L, Blood Urea Nitrogen 34H, Creatinine 1.84H, Glomerular Filtration Rate 38.5L, Fasting Glucose 85, Lactic Acid Level 3.5*H, Calcium Level 9.5, Total Bilirubin 1.0, Direct Bilirubin 0.4H, Aspartate Amino Transf ( AST/SGOT) 32, Alanine Aminotransferase (ALT/SGPT) 18, Alkaline Phosphatase 99, Total Creatine Kinase 15L, Creatine Kinase MB < 1.0, Creatine Kinase MB Relative Index 6.67H, Troponin I 0.04, SX-Mjc-[id number]-Type Natriuretic Peptide 3448H, Total Protein 6.4, Albumin 3.2, Albumin/Globulin Ratio 1.00, Thyroid Stimulating Hormone (TSH) 2.490, Thyroxine (T4) 8.3, Digoxin Level 1.9 04/27/19 07:09: Lactic Acid Level 1.0 04/27/19 14:07: Urine Color YELLOW, Urine Appearance CLEAR, Urine pH 5.0, Urine Specific [place] 1.012, Urine Protein NEGATIVE, Urine Glucose (Auto)(UA) NEGATIVE, Urine Ketones (Auto) NEGATIVE, Urine Blood 1+H, Urine Nitrite NEGATIVE, Urine Bilirubin NEGATIVE, Urine Urobilinogen 0.2, Urine Leukocyte Esterase (Auto) NEGATIVE, Urine WBC (Auto) 2, Urine RBC (Auto) 1, Urine Hyaline Casts (Auto) 0, Urine Bacteria (Auto) NEGATIVE, Urine Squamous Epithelial Cells 0, Urine Sperm (Auto) , Urine Random Creatinine 65.7, Urine Random Sodium 22, Urine Random Urea Nitrogen 495 Current Medications Medications (Trade) Dose Ordered Sig/Jennifer Route PRN Reason Start Time Stop Time Status Last Admin Dose Admin Amiloride HCl (Midamor) 5 mg DAILY PO 04/27/19 09:00 04/27/19 10:17 5 MG Apixaban (Eliquis) 5 mg BID PO 04/27/19 09:00 Hold 04/27/19 09:12 5 MG Digoxin (Lanoxin) 0.125 mg DAILY PO 04/27/19 09:00 04/27/19 09:12 0.125 MG Pantoprazole Sodium (Protonix) 40 mg DAILY PO 04/27/19 09:00 04/27/19 09:11 40 MG Piperacillin Sod/ Tazobactam Sod 2.25 gm/Dextrose 50 ml @ 100 mls/hr Q6H IV 04/27/19 07:00 04/27/19 12:51 100 MLS/HR Sodium Chloride 1,000 ml @ 150 mls/hr Q6H40M IV 04/27/19 01:15 04/27/19 18:06 150 MLS/HR Micro Microbiology 04/26/19 Blood Culture, Received Pending 04/26/19 Blood Culture, Received Pending Creatinine Clearance Date:04/27/19. Creatinine Clearance: CALCULATED TO BE 27 Pending Labs Laboratory Tests 2 04/26/19 22:30: Lymphocytes # (Auto) , Nucleated Red Blood Cells % (auto) 0.2H, Neutrophils 4L, Lymphocytes (Manual) 79H, Monocytes (Manual) 4, Atypical Lymphocytes 13H, Poikilocytosis 1+, Anisocytosis 2+, Macrocytosis 1+, Schistocytes 1+, Platelet Estimate NORMAL, Blood Gas Bicarbonate Standard 31.4, Venous Blood pH 7.432H, Venous Blood Partial Pressure CO2 52.4H, Venous Blood Partial Pressure O2 27.3L, Venous Blood Total Carbon Dioxide 35.8H, Venous Blood HCO3 34.2H, Venous Blood Oxygen Saturation 47.9L, Venous Blood Base Excess 8.6H, Anion Gap 7L, Glomerular Filtration Rate 38.5L, Lactic Acid Level 3.5*H, Calcium Level 9.5, Total Bilirubin 1.0, Direct Bilirubin 0.4H, Aspartate Amino Transf (AST/SGOT) 32, Alanine Aminotransferase (ALT/SGPT) 18, Alkaline Phosphatase 99, Total Creatine Kinase 15L, Creatine Kinase MB < 1.0, Creatine Kinase MB Relative Index 6.67H, Troponin I 0.04, PO-Bcu-H-Type Natriuretic Peptide 3448H, Total Protein 6.4, Albumin 3.2, Albumin/Globulin Ratio 1.00, Thyroid Stimulating Hormone (TSH) 2.490, Thyroxine (T4) 8.3, Digoxin Level 1.9 04/27/19 07:09: Lactic Acid Level 1.0 04/27/19 14:07: Urine Color YELLOW, Urine Appearance CLEAR, Urine pH 5.0, Urine Specific [place] 1.012, Urine Protein NEGATIVE, Urine Glucose (Auto)(UA) NEGATIVE, Urine Ketones (Auto) NEGATIVE, Urine Blood 1+H, Urine Nitrite NEGATIVE, Urine Bilirubin NEGATIVE, Urine Urobilinogen 0.2, Urine Leukocyte Esterase (Auto) NEGATIVE, Urine WBC (Auto) 2, Urine RBC (Auto) 1, Urine Hyaline Casts (Auto) 0, Urine Bacteria (Auto) NEGATIVE, Urine Squamous Epithelial Cells 0, Urine Sperm (Auto) , Urine Random Creatinine 65.7, Urine Random Sodium 22, Urine Random Urea N itrogen 495 Assessment and Plan Maintaining Current Dose?: Yes Reason for dose change: No Dose Change Pharmacist Note Pharmacist Note Date: 04/27/19. Pharmacist note: Patient admitted for possible sepsis secondary to pneumonia WBC count of 26.2. Patient placed on zosyn 2.25g q6h and vancomycin consult placed. Patient does have a history of vancomycin use here at [facility]. BC and MRSA PCR pending. Admission in March trough was not received. Last trough levels were drawn back in 2013 and patient has also lost weight since then. Therefore I decided to be a little more conservative with dosing to start. I gave a 1250mg load at 1600 followed by a maintenance dose of 750mg IV vanco q24h starting at 0900. I scheduled a random tomorrow morning just to see how the patient is doing and a trough before the third dose on 04/29 @0800. I will continue to monitor this patient and make dose adjustments as needed. ANÍBAL LOPEZ [facility] Apr 27, 2019 19:58
--- NOTE | 2019-04-27 22:01 | ECGEPIP ---
[facility] - ED Test Date: 2019-04-26 Pat Name: RASHAWN VALENCIA Department: Room: [place] [address] Gender: Male Interpreter And Translator: ESTELLA : 1945 Requested By: BEBO Avila Order Number: [id number] Reading MD: Criselda Mendoza Measurements Intervals [place] Rate: 64 P: WI: 0 QRS: 253 QRSD: 141 T: 25 QT: 473 QTc: 490 Interpretive Statements ELECTRONIC VENTRICULAR PACEMAKER ABNORMAL RHYTHM ECG DECREASED RATE 04/11/19 Electronically Signed on 04-27-2019 22:00:46 EST by Criselda Mendoza
[2019-04-28] VITALS (16 sets, daily range): BP systolic 83–110; BP diastolic 50–62
[2019-04-28] MEDS: PIPERACILLIN/TAZOBACTAM SOD 2.25 GM in D5W MINI-BAG PLUS 50 ML IV SCH ×4 (01:09→19:54)
[2019-04-28] MEDS: NS 1,000 ML IV SCH ×2 (03:06→06:04)
[2019-04-28 06:07] LABS: ABG HCO3 27.8 MEQ/L (22.0-26.0); ABG O2 SATURATION 95.9 % (95.0-99.0); ABG PARTIAL PRESSURE CO2 38.4 mmHg (35.0-45.0); ABG PARTIAL PRESSURE O2 80.4 mmHg (75.0-100.0); ABG TOTAL CO2 28.9 MEQ/L (23.0-31.0); ABG pH (ARTERIAL) 7.477 UNITS (7.350-7.450)
[2019-04-28 06:17] LABS: HEMATOCRIT 21.6 % (42.0-52.0); MEAN CORPUSCULAR VOLUME 109.6 fl (80.0-96.0); PLATELET COUNT, AUTOMATED 246 10^3/uL (150-450); RED BLOOD COUNT 1.97 10^6/uL (4.30-6.10)
[2019-04-28 06:19] LABS: HEMOGLOBIN 6.7 g/dl (13.5-17.5)
[2019-04-28 06:43] LABS: BLOOD UREA NITROGEN 22 MG/DL (7-18); CALCIUM LEVEL 6.7 MG/DL (8.8-10.2); CARBON DIOXIDE LEVEL 26 MEQ/L (21-32); CHLORIDE LEVEL 112 MEQ/L (98-107); CREATININE FOR GFR 1.24 MG/DL (0.70-1.30); GLOMERULAR FILTRATION RATE > 60.0 (>42); GLUCOSE, FASTING 69 MG/DL (70-100); POTASSIUM SERUM 3.2 MEQ/L (3.5-5.1); SODIUM LEVEL 144 MEQ/L (136-145); VANCOMYCIN RANDOM 11.9 UG/ML
--- NOTE | 2019-04-28 08:14 | REP ---
Portable chest x-ray: Single view. History: Pneumonia. Comparison chest x-ray April 27, 2019 and April 26, 2019. Findings: There is blunting of the pleural angles bilaterally consistent with small bilateral effusions unchanged. Lungs are exposed at a slightly lesser level of inspiration. No infiltrate is seen. Median sternotomy wires pacemaker wires and mitral valve replacement hardware are again seen. A left atrial appendage clip is noted. Impression: No significant radiographic change from 04/05/2019. Findings consistent with small bilateral pleural effusions. Electronically Signed by Darien Rebolledo MD 04/28/2019 08:06 A
[2019-04-28] MEDS: DIGOXIN 0.125 MG TAB PO SCH (08:51)
[2019-04-28] MEDS: aMILoride 5 MG TAB PO SCH (08:51)
[2019-04-28] MEDS: PANTOPRAZOLE 40MG TAB (PROTONIX) PO SCH (08:51)
[2019-04-28] MEDS ORDERED: VANCOMYCIN HCL 750 MG, VIAL MATE ADAPTER 1 EACH in D5W 250 ML IV SCH (09:00)
--- NOTE | 2019-04-28 12:10 | IPNPDOC ---
Subjective Date Seen The patient was seen on 04/28/19. Subjective Chief Complaint/HPI Patient feels a lot better. No more shortness of breath, afebrile General: Denies: ROS Unobtainable, Chills, Night Sweats, Fatigue, Malaise, Normal Appetite, Other Symptoms Constitutional: Denies: Chills, Fever, Malaise, Night Sweats, Weakness, Fatigue, Weight Loss, Lethargy, Other Skin: Denies: Rash, Lesions, Jaundice, Bruising, Itching, Dry, Breakdown, Nail Changes, Other Pulmonary: Denies: Dyspnea, Cough, Pleuritic Chest Pain, Other Symptoms Cardiovascular: Denies: Chest Pain, Palpitations, Orthopnea, Paroxysmal Noc. Dyspnea, Edema, Lt Headedness, Other Symptoms Gastrointestinal: Denies: Nausea, Vomiting, Abdominal Pain, Diarrhea, Constipation, Melena, Hematochezia, Other Symptoms Musculoskeletal: Denies: Neck Pain, Back Pain, Shoulder Pain, Arm Pain, Hand Pain, Leg Pain, Foot Pain, Joint Pain, Muscle Pain, Spasms, Other Symptoms Neurological: Denies: Weakness, Numbness, Incoordination, Change in speech, Confusion, Seizures, Other Symptoms Objective Physical Examination General Exam: Positive: Alert, Cooperative Eye Exam: Positive: PERRLA, Conjunctiva & lids normal ENT Exam: Positive: Atraumatic Neck Exam: Positive: Supple Chest Exam: Positive: Clear to auscultation, Normal air movement Heart Exam: Positive: Rate Normal, Normal S1, Normal S2 Abdomen Exam: Positive: Normal bowel sounds, Soft, Tenderness Extremity Exam: Positive: Normal pulses Skin Exam: Positive: Nl turgor and temperature Assessment /Plan Problems (1) Sepsis Status: Acute Problem Text: Vancomycin was DC'd as patient's MRSA screen was negative Continue Zosyn as per orders WBC count is 17,000 now Repeat a.m. labs Potassium supplementation for hypokalemia (2) Pneumonia Status: Acute Problem Text: As above (3) Pleural effusion Status: Acute Problem Text: Scheduled for thoracentesis on Wednesday (4) Anemia Status: Acute Problem Text: Patient's hemoglobin dropped from 9.7-6.7 and will receive her 2 units of PRBC today Stool guaiac is positive Dr. bettencourt for GI consult has been called will continue monitoring hemoglobin and hematocrit (5) Paroxysmal atrial fibrillation Status: Chronic Problem Text: apaxiban on hold as patient may need IR thoracentesis on Wednesday Continue all home meds, vent rate is under control Daily in progress DVT prophylaxis with bilateral SCDs (6) Decubital ulcer Status: Chronic Problem Text: Stage II decubitus ulcer present on Coccyx, will involve nursing for wound management. Frequent turning every 2 hours (7) Malnutrition Status: Chronic Problem Text: Malnutrition, most likely secondary to chronic medical conditions Dietary consult has been called Plan/VTE VTE Prophylaxis Ordered?: Yes VS, I&O, 24H, [facility] Vital Signs/I&O Vital Signs Date Time Temp Pulse Resp B/P (MAP) Pulse Ox O2 Delivery O2 Flow Rate FiO2 04/28/19 11:22 98.2 60 16 92/52 97 Room Air I&O- Last 24 Hours up to 6 AM 04/28/19 06:00 Intake Total 1560 ml Output Total 800 ml Balance 760 ml Laboratory Data 24H LABS Laboratory Tests 2 04/27/19 14:07: Urine Color YELLOW, Urine Appearance CLEAR, Urine pH 5.0, Urine Specific [place] 1.012, Urine Protein NEGATIVE, Urine Glucose (Auto)(UA) NEGATIVE, Urine Ketones (Auto) NEGATIVE, Urine Blood 1+H, Urine Nitrite NEGATIVE, Urine Bilirubin NEGATIVE, Urine Urobilinogen 0.2, Urine Leukocyte Esterase (Auto) NEGATIVE, Urine WBC (Auto) 2, Urine RBC (Auto) 1, Urine Hyaline Casts (Auto) 0, Urine Bact eria (Auto) NEGATIVE, Urine Squamous Epithelial Cells 0, Urine Sperm (Auto) , Urine Random Creatinine 65.7, Urine Random Sodium 22, Urine Random Urea Nitrogen 495 04/27/19 22:28: Methicillin-Resist S.aureus DNA PCR NOT DETECTED 04/28/19 05:52: Nucleated Red Blood Cells % (auto) 0.4H, Anion Gap 6L, Glomerular Filtration Rate > 60.0, Calcium Level 6.7#L, Random Vancomycin Level 11.9 04/28/19 05:58: Blood Gas Bicarbonate Standard 28.0H, Arterial Blood pH 7.477H, Arterial Blood Partial Pressure CO2 38.4, Arterial Blood Partial Pressure O2 80.4, Arterial Blood Total CO2 28.9, Arterial Blood HCO3 27.8H, Arterial Blood Base Excess 4.0 H, Arterial Blood Oxygen Saturation 95.9 CBC/BMP Laboratory Tests 04/28/19 05:52 Microbiology Microbiology 04/28/19 Stool Occult Blood (ADRIANA) - Final, Complete 04/26/19 Blood Culture - Preliminary, Resulted No growth after 24 hours . All specim... 04/26/19 Blood Culture - Preliminary, Resulted No growth after 24 hours . All specim... ADAMARIS ARGUETA MD Apr 28, 2019 12:10
[2019-04-28] MEDS ORDERED: POTASSIUM CHLORIDE 10 MEQ SR TABLET PO ONE (12:30)
[2019-04-28] MEDS: TORSEMIDE 20 MG TAB PO SCH (20:03)
[2019-04-29] VITALS (9 sets, daily range): BP systolic 88–106; BP diastolic 44–61
[2019-04-29] MEDS: PIPERACILLIN/TAZOBACTAM SOD 2.25 GM in D5W MINI-BAG PLUS 50 ML IV SCH ×4 (00:35→19:46)
[2019-04-29 05:54] LABS: HEMATOCRIT 33.2 % (42.0-52.0); MEAN CORPUSCULAR HEMOGLOBIN 33.5 pg (27.0-33.0); MEAN CORPUSCULAR HGB CONC 32.8 g/dl (32.0-36.5); MEAN CORPUSCULAR VOLUME 102.2 fl (80.0-96.0); PLATELET COUNT, AUTOMATED 290 10^3/uL (150-450); RED BLOOD COUNT 3.25 10^6/uL (4.30-6.10)
[2019-04-29 06:11] LABS: HEMOGLOBIN 10.9 g/dl (13.5-17.5)
[2019-04-29 06:20] LABS: ALBUMIN 2.6 GM/DL (3.2-5.2); BILIRUBIN,TOTAL 1.3 MG/DL (0.2-1.0); CALCIUM LEVEL 8.4 MG/DL (8.8-10.2); CREATININE FOR GFR 1.4 MG/DL (0.70-1.30); GLOMERULAR FILTRATION RATE 52.7 (>42); POTASSIUM SERUM 3.8 MEQ/L (3.5-5.1); TOTAL PROTEIN 5.7 GM/DL (6.4-8.2)
[2019-04-29 07:29] LABS: ATYPICAL LYMPH 4 % (0-5); LYMPHOCYTES 77 % (16-44); MONOCYTES 10 % (0-5); NEUTROPHILS 8 % (28-66)
[2019-04-29 07:32] LABS: ANISOCYTOSIS 1+; OVALOCYTES 1+; PLATELET ESTIMATE NORMAL (NORMAL); POIKILOCYTOSIS 1+
[2019-04-29] MEDS: aMILoride 5 MG TAB PO SCH (09:49)
[2019-04-29] MEDS: PANTOPRAZOLE 40MG TAB (PROTONIX) PO SCH (09:49)
[2019-04-29] MEDS: TORSEMIDE 20 MG TAB PO SCH ×2 (09:49→21:00)
[2019-04-29] MEDS: DIGOXIN 0.125 MG TAB PO SCH (09:50)
--- NOTE | 2019-04-29 12:07 | IPNPDOC ---
Subjective Date Seen The patient was seen on 04/29/19. Subjective Chief Complaint/HPI Patient feeling much better. No cough or shortness of breath at the present time ,is scheduled for EGD today Constitutional: Denies: Chills, Fever, Malaise, Night Sweats, Weakness, Fatigue, Weight Loss, Lethargy, Other Eyes: Denies: Pain, Vision change, Conjunctivae inflammation, Eyelid inflammation, Redness, Other Pulmonary: Denies: Dyspnea, Cough, Pleuritic Chest Pain, Other Symptoms Cardiovascular: Denies: Chest Pain, Palpitations, Orthopnea, Paroxysmal Noc. Dyspnea, Edema, Lt Headedness, Other Symptoms Gastrointestinal: Denies: Nausea, Vomiting, Abdominal Pain, Diarrhea, Constipation, Melena, Hematochezia, Other Symptoms Endocrine: Denies: Polydipsia, Polyphagia, Polyuria, Heat Intolerance, Cold Int olerance, Other Endocrine Sx Musculoskeletal: Denies: Neck Pain, Back Pain, Shoulder Pain, Arm Pain, Hand Pain, Leg Pain, Foot Pain, Joint Pain, Muscle Pain, Spasms, Other Symptoms Neurological: Denies: Weakness, Numbness, Incoordination, Change in speech, Confusion, Seizures, Other Symptoms Objective Physical Examination General Exam: Positive: Alert, Cooperative Neck Exam: Positive: Supple Chest Exam: Positive: Clear to auscultation, Normal air movement Heart Exam: Positive: Rate Normal, Normal S1, Normal S2 Abdomen Exam: Positive: Normal bowel sounds, Soft, Tenderness Extremity Exam: Positive: Normal pulses Skin Exam: Positive: Nl turgor and temperature Neuro Exam: Positive: Strength at 5/5 X4 ext, Sensation Intact, Cranial Nerves 3-12 NL Assessment /Plan Problems (1) Sepsis Status: Acute Problem Text: Vancomycin was DC'd as patient's MRSA PCR was negative Continue Zosyn as per orders WBC count is slightly elevated today is 23,000. CBC in a.m. Continue present care. Afebrile and clinically stable (2) Pneumonia Status: Acute Problem Text: As above (3) Pleural effusion Status: Acute Problem Text: Scheduled for thoracentesis on Wednesday eliquis is on hold (4) Anemia Status: Acute Problem Text: Patient's hemoglobin dropped from 9.7-6.7 and will receive her 2 units of PRBC today Stool guaiac is positive Patient is scheduled for EGD today Monitor H&H (5) Paroxysmal atrial fibrillation Status: Chronic Problem Text: apaxiban on hold as patient may need IR thoracentesis on Wednesday Continue all home meds, vent rate is under control Will restart once thoracentesis complete DVT prophylaxis with bilateral SCDs (6) Decubital ulcer Status: Chronic Problem Text: Stage II decubitus ulcer present on Coccyx, will involve nursing for wound management. Frequent turning every 2 hours (7) Malnutrition Status: Chronic Problem Text: Malnutrition, most likely secondary to chronic medical conditions Dietary consult has been called Plan/VTE VTE Prophylaxis Ordered?: Yes VS, I&O, 24H, Fishbone Vital Signs/I&O Vital Signs Date Time Temp Pulse Resp B/P (MAP) Pulse Ox O2 Delivery O2 Flow Rate FiO2 04/29/19 10:00 98.0 57 16 106/60 (75) 96 Room Air I&O- Last 24 Hours up to 6 AM 04/29/19 06:00 Intake Total 2958 ml Output Total 1300 ml Balance 1658 ml Laboratory Data 24H LABS Laboratory Tests 2 04/29/19 05:27: Lymphocytes # (Auto) , Nucleated Red Blood Cells % (auto) 0.2H, Neutrophils 8L, Band Neutrophils 1, Lymphocytes (Manual) 77H, Monocytes (Manual) 10H, Atypical Lymphocytes 4, Poikilocytosis 1+, Anisocytosis 1+, Macrocytosis 1+, Ovalocytes 1+, Platelet Estimate NORMAL, Anion Gap 8, Glomerular Filtration Rate 52.7, Calcium Level 8.4#L, Total Bilirubin 1.3H, Aspartate Amino Transf (AST/SGOT) 29, Alanine Aminotransferase (ALT/SGPT) 16, Alkaline Phosphatase 80, Total Protein 5.7L, Albumin 2.6L, Albumin/Globulin Ratio 0.84L CBC/BMP Laboratory Tests 04/29/19 05:27 Microbiology Microbiology 04/28/19 Stool Occult Blood (ADRIANA) - Final, Complete 04/26/19 Blood Culture - Preliminary, Resulted No Growth after 48 hours. All Specime... 04/26/19 Blood Culture - Preliminary, Resulted No Growth after 48 hours. All Specime... ADAMARIS ARGUETA MD Apr 29, 2019 12:07
[2019-04-29] MEDS ORDERED: PROPOFOL 200 MG/20 ML VIAL As Ordered ONE (16:27)
[2019-04-29] MEDS ORDERED: LIDOCAINE 2% INJ 100 MG/5 ML SDV (FOR ANES.) As Ordered ONE (16:27)
[2019-04-29] MEDS ORDERED: ePHEDrine SULFATE 25 MG/5 ML(5MG/ML) SYRINGE As Ordered ONE (16:37)
--- NOTE | 2019-04-29 16:57 | ROOR ---
Patient Name: Darryl Lam Procedure Date: 04/29/2019 4:13 PM Date of : 1945 Age: 74 Gender: Male Note Status: Finalized Procedure: Upper GI endoscopy Indications: Anemia Providers: Darryl CHURCH MD Referring MD: 2. Inpatient 2. Inpatient, Daryl Rascon MD, AMINA FRANKS JR, MD Requesting Provider: Medicines: Monitored Anesthesia Care Complications: No immediate complications. Procedure: Pre-Anesthesia Assessment: - The heart rate, respiratory rate, oxygen saturations, blood pressure, adequacy of pulmonary ventilation, and response to care were monitored throughout the procedure. The Endoscope was introduced through the mouth, and advanced to the third part of duodenum. The upper GI endoscopy was accomplished without difficulty. The patient tolerated the procedure well. 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 This was characterized by healthy appearing mucosa and mild stenosis. The entire examined stomach was normal. The examined duodenum was normal. Impression: - An esophago-gastric anastomosis was found, characterized by healthy appearing mucosa and mild stenosis. - Normal stomach. - Normal examined duodenum. - No specimens collected. Recommendation: - Observe patient's clinical course. - I anticipate no further need for intervention. - This patient had a normal colonoscopy within 2 yrs. His stool is normal brown and there are no signs of overt GI bleeding. I suspect his baseline chronic anemia with recent drop in Hb/Hct is related to chronic disease or multifactorial rather than acute gi blood loss. Heme positive stool (1 of 2 samples) in this pt is most likely related to local irritation/hemorrhoids. I will at this time hold off on urgent repeat colonoscopy. - [facility]. - Soft diet. Darryl Church MD Darryl CHURCH MD 04/29/2019 4:56:28 PM Electronically signed by Darryl CHURCH MD Number of Addenda: 0 Note Initiated On: 04/29/2019 4:13 PM Estimated Blood Loss: Estimated blood loss: none.
[2019-04-29] MEDS ORDERED: ONDANSETRON 4MG/2ML VIAL (J2405) IV PRN (17:15)
[2019-04-29] MEDS ORDERED: LR 1,000 ML IV SCH (17:15)
[2019-04-29] MEDS ORDERED: NS 250 ML IV ONE (20:45)
[2019-04-29] MEDS ORDERED: NS 500 ML IV ONE (20:45)
[2019-04-29 21:38] LABS: HEMATOCRIT 33.3 % (42.0-52.0); HEMOGLOBIN 11.2 g/dl (13.5-17.5)
[2019-04-30] VITALS (8 sets, daily range): BP systolic 78–99; BP diastolic 38–53
[2019-04-30] MEDS: PIPERACILLIN/TAZOBACTAM SOD 2.25 GM in D5W MINI-BAG PLUS 50 ML IV SCH ×2 (01:58→06:43)
[2019-04-30] MEDS ORDERED: ACETAMINOPHEN TAB 650MG DOSE (2X325MG) PO PRN (04:15)
[2019-04-30] MEDS ORDERED: NS 250 ML IV ONE (06:15)
[2019-04-30] MEDS: DIGOXIN 0.125 MG TAB PO SCH (07:35)
[2019-04-30] MEDS: PANTOPRAZOLE 40MG TAB (PROTONIX) PO SCH (07:41)
[2019-04-30 08:13] LABS: HEMATOCRIT 32.6 % (42.0-52.0); HEMOGLOBIN 10.6 g/dl (13.5-17.5); MEAN CORPUSCULAR HEMOGLOBIN 33.2 pg (27.0-33.0); MEAN CORPUSCULAR HGB CONC 32.5 g/dl (32.0-36.5); MEAN CORPUSCULAR VOLUME 102.2 fl (80.0-96.0); PLATELET COUNT, AUTOMATED 269 10^3/uL (150-450); RED BLOOD COUNT 3.19 10^6/uL (4.30-6.10)
[2019-04-30 08:30] LABS: WHITE BLOOD COUNT 26.6 10^3/uL (4.0-10.0)
[2019-04-30 08:35] LABS: ALBUMIN 2.5 GM/DL (3.2-5.2); BILIRUBIN,TOTAL 0.9 MG/DL (0.2-1.0); CALCIUM LEVEL 8.3 MG/DL (8.8-10.2); CREATININE FOR GFR 1.63 MG/DL (0.70-1.30); GLOMERULAR FILTRATION RATE 44.2 (>42); POTASSIUM SERUM 4.1 MEQ/L (3.5-5.1); TOTAL PROTEIN 5.4 GM/DL (6.4-8.2)
[2019-04-30 08:51] LABS: ANISOCYTOSIS 1+; EOSINOPHILS 1 % (0-3); LYMPHOCYTES 89 % (16-44); MONOCYTES 5 % (0-5); NEUTROPHILS 5 % (28-66); OVALOCYTES 1+; SCHISTOCYTES 1+
[2019-04-30 08:52] LABS: PLATELET ESTIMATE NORMAL (NORMAL); POIKILOCYTOSIS 2+
--- NOTE | 2019-04-30 10:27 | IPNPDOC ---
Subjective Date Seen The patient was seen on 04/30/19. Subjective Chief Complaint/HPI Patient feels better, in no apparent distress. Family at bedside General: Denies: ROS Unobtainable, Chills, Night Sweats, Fatigue, Malaise, Normal Appetite, Other Symptoms Constitutional: Denies: Chills, Fever, Malaise, Night Sweats, Weakness, Fatigue, Weight Loss, Lethargy, Other Pulmonary: Denies: Dyspnea, Cough, Pleuritic Chest Pain, Other Symptoms Cardiovascular: Denies: Chest Pain, Palpitations, Orthopnea, Paroxysmal Noc. Dyspnea, Edema, Lt Headedness, Other Symptoms Gastrointestinal: Denies: Nausea, Vomiting, Abdominal Pain, Diarrhea, Constipation, Melena, Hematochezia, Other Symptoms Endocrine: Denies: Polydipsia, Polyphagia, Polyuria, Heat Intolerance, Cold Intolerance, Other Endocrine Sx Musculoskeletal: Denies: Neck Pain, Back Pain, Shoulder Pain, Arm Pain, Hand Pain, Leg Pain, Foot Pain, Joint Pain, Muscle Pain, Spasms, Other Symptoms Neurological: Denies: Weakness, Numbness, Incoordination, Change in speech, Confusion, Seizures, Other Symptoms Objective Physical Examination General Exam: Positive: Alert, Cooperative Neck Exam: Positive: Supple Chest Exam: Positive: Clear to auscultation, Normal air movement Heart Exam: Positive: Rate Normal, Normal S1, Normal S2 Abdomen Exam: Positive: Normal bowel sounds, Soft, Tenderness Extremity Exam: Positive: Normal pulses Skin Exam: Positive: Nl turgor and temperature Neuro Exam: Positive: Strength at 5/5 X4 ext, Sensation Intact, Cranial Nerves 3-12 NL Assessment /Plan Problems (1) Sepsis Status: Resolved Problem Text: Vancomycin was DC'd as patient's MRSA PCR was negative Patient. WBC count is still elevated 26,000 with predominantly lymphocytes pt is afebrile. No evidence of infection. 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 He is being following up with Dr. Christianson for his CLL with conservative management Will DC IV antibiotics Requesting oncology/hematology consult in a.m. with Dr. CHRISTIANSON for further recommendation (2) Pneumonia Status: Acute Problem Text: DC IV antibiotics Chest x-ray was repeated yesterday. No change from the previous chest xr Will monitor clinically (3) Pleural effusion Status: Acute Problem Text: Patient is scheduled for thoracentesis in a.m. Will request cytology to be sent out Will also patient for 24 hours of the thoracentesis and then he can be discharged home. I did extensive discussion with the patient and his family and he signed the DNR, DNI (4) Anemia Status: Acute Problem Text: Patient's hemoglobin and hematocrit is a stable 9.7 and 31.8 EGD was essentially within normal limits and colonoscopy was done 2 years ago which was normal and not indicated at this time. As per GI Will monitor H&H and transfuse as needed (5) Paroxysmal atrial fibrillation Status: Chronic Problem Text: apaxiban on hold as patient may need IR thoracentesis on Wednesday Continue all home meds, vent rate is under control Will restart once thoracentesis complete DVT prophylaxis with bilateral SCDs (6) Decubital ulcer Status: Chronic Problem Text: Stage II decubitus ulcer present on Coccyx, will involve nursing for wound management. Frequent turning every 2 hours (7) Malnutrition Status: Chronic Problem Text: Malnutrition, most likely secondary to chronic medical conditions Dietary consult has been called Plan/VTE VTE Prophylaxis Ordered?: Yes VS, I&O, 24H, Fishbone Vital Signs/I&O Vital Signs Date Time Temp Pulse Resp B/P (MAP) Pulse Ox O2 Delivery O2 Flow Rate FiO2 04/30/19 07:47 57 86/48 (61) 04/30/19 06:00 98.4 18 93 Room Air I&O- Last 24 Hours up to 6 AM 04/30/19 06:00 Intake Total 660 ml Output Total 1275 ml Balance -615 ml Laboratory Data 24H LABS Laboratory Tests 2 04/30/19 07:53: Lymphocytes # (Auto) , Nucleated Red Blood Cells % (auto) 0.2H, Neutrophils 5L, Lymphocytes (Manual) 89H, Monocytes (Manual) 5, Eosinophils (Manual) 1, Poikilocytosis 2+, Anisocytosis 1+, Macrocytosis 1+, Schistocytes 1+, Ovalocytes 1+, Platelet Estimate NORMAL, Anion Gap 7L, Glomerular Filtration Rate 44.2, Calcium Level 8.3L, Total Bilirubin 0.9, Aspartate Amino Transf (AST/SGOT) 31, Alanine Aminotransferase (ALT/SGPT) 16, Alkaline Phosphatase 82, Total Protein 5.4L, Albumin 2.5L, Albumin/Globulin Ratio 0.86L CBC/BMP Laboratory Tests 04/29/19 21:25 04/30/19 07:53 Microbiology Microbiology 04/28/19 Stool Occult Blood (ADRIANA) - Final, Complete 04/26/19 Blood Culture - Preliminary, Resulted No Growth after 72 hours. All specime... 04/26/19 Blood Culture - Preliminary, Resulted No Growth after 72 hours. All specime... ADAMARIS ARGUETA MD Apr 30, 2019 10:27
[2019-05-01] VITALS (7 sets, daily range): BP systolic 89–107; BP diastolic 50–59
[2019-05-01 06:43] LABS: HEMATOCRIT 34.6 % (42.0-52.0); HEMOGLOBIN 11.2 g/dl (13.5-17.5); MEAN CORPUSCULAR HEMOGLOBIN 33.1 pg (27.0-33.0); MEAN CORPUSCULAR HGB CONC 32.4 g/dl (32.0-36.5); MEAN CORPUSCULAR VOLUME 102.4 fl (80.0-96.0); PLATELET COUNT, AUTOMATED 263 10^3/uL (150-450); RED BLOOD COUNT 3.38 10^6/uL (4.30-6.10)
[2019-05-01 06:46] LABS: WHITE BLOOD COUNT 27.9 10^3/uL (4.0-10.0)
[2019-05-01 07:01] LABS: ATYPICAL LYMPH 42 % (0-5); EOSINOPHILS 2 % (0-3); LYMPHOCYTES 48 % (16-44); MONOCYTES 1 % (0-5); NEUTROPHILS 7 % (28-66)
[2019-05-01 07:02] LABS: SPHEROCYTES 2+
[2019-05-01 07:03] LABS: PLATELET ESTIMATE NORMAL (NORMAL)
[2019-05-01 07:04] LABS: ALBUMIN 2.6 GM/DL (3.2-5.2); BILIRUBIN,TOTAL 0.8 MG/DL (0.2-1.0); CALCIUM LEVEL 8.6 MG/DL (8.8-10.2); CREATININE FOR GFR 1.47 MG/DL (0.70-1.30); GLOMERULAR FILTRATION RATE 49.9 (>42); POTASSIUM SERUM 4.1 MEQ/L (3.5-5.1); TOTAL PROTEIN 5.9 GM/DL (6.4-8.2)
[2019-05-01] MEDS: DIGOXIN 0.125 MG TAB PO SCH (09:00)
[2019-05-01] MEDS: PANTOPRAZOLE 40MG TAB (PROTONIX) PO SCH (10:05)
--- NOTE | 2019-05-01 10:36 | IPNPDOC ---
Subjective Date Seen The patient was seen on 05/01/19. Subjective Chief Complaint/HPI Austin is much comfortable today, in no apparent distress. Wishes to go home soon of the thoracentesis General: Denies: ROS Unobtainable, Chills, Night Sweats, Fatigue, Malaise, Normal Appetite, Other Symptoms Constitutional: Denies: Chills, Fever, Malaise, Night Sweats, Weakness, Fatigue, Weight Loss, Lethargy, Other Skin: Denies: Rash, Lesions, Jaundice, Bruising, Itching, Dry, Breakdown, Nail Changes, Other Pulmonary: Denies: Dyspnea, Cough, Pleuritic Chest Pain, Other Symptoms Cardiovascular: Denies: Chest Pain, Palpitations, Orthopnea, Paroxysmal Noc. Dyspnea, Edema, Lt Headedness, Other Symptoms Gastrointestinal: Denies: Nausea, Vomiting, Abdominal Pain, Diarrhea, Constipation, Melena, Hematochezia, Other Symptoms Endocrine: Denies: Polydipsia, Polyphagia, Polyuria, Heat Intolerance, Cold Intolerance, Other Endocrine Sx Musculoskeletal: Denies: Neck Pain, Back Pain, Shoulder Pain, Arm Pain, Hand Pain, Leg Pain, Foot Pain, Joint Pain, Muscle Pain, Spasms, Other Symptoms Neurological: Denies: Weakness, Numbness, Incoordination, Change in speech, Confusion, Seizures, Other Symptoms Objective Physical Examination General Exam: Positive: Alert, Cooperative Neck Exam: Positive: Supple Chest Exam: Positive: Clear to auscultation, Normal air movement Heart Exam: Positive: Rate Normal, Normal S1, Normal S2 Abdomen Exam: Positive: Normal bowel sounds, Soft, Tenderness Extremity Exam: Positive: Normal pulses Skin Exam: Positive: Nl turgor and temperature Neuro Exam: Positive: Strength at 5/5 X4 ext, Sensation Intact, Cranial Nerves 3-12 NL Assessment /Plan Problems (1) Sepsis Status: Resolved Problem Text: Vancomycin was DC'd as patient's MRSA PCR was negative Patient elevated WBC count are secondary to CLL, for which she is following up with Dr. Merino Is no more evidence of infection and all antibiotics were DC'd Hematology consult was requested. Dr. Luevano to see patient while he is in the hospital, but otherwise he can follow up with her as an outpatient (2) Pneumonia Status: Acute Problem Text: Off antibiotics Repeat chest x-ray no changes General is clinically asymptomatic and afebrile (3) Pleural effusion Status: Acute Problem Text: Patient is scheduled for thoracentesis today Will request cytology to be sent out Will also patient for 24 hours of the thoracentesis and then he can be discharged home. I did extensive discussion with the patient and his family and he signed the DNR, DNI (4) Anemia Status: Acute Problem Text: Patient's hemoglobin and hematocrit is a stable 9.7 and 31.8 EGD was essentially within normal limits and colonoscopy was done 2 years ago which was normal and not indicated at this time. As per GI Will monitor H&H and transfuse as needed (5) Paroxysmal atrial fibrillation Status: Chronic Problem Text: apaxiban on hold as patient may need IR thoracentesis on Wednesday Continue all home meds, vent rate is under control Will restart once thoracentesis complete DVT prophylaxis with bilateral SCDs (6) Decubital ulcer Status: Chronic Problem Text: Decubital ulcers present prior to this admission to [facility] Stage II decubitus ulcer present on Coccyx, will involve nursing for wound management. Frequent turning every 2 hours (7) Malnutrition Status: Chronic Problem Text: Malnutrition, most likely secondary to chronic medical conditions Dietary consult has been called Plan/VTE VTE Prophylaxis Ordered?: Yes VS, I&O, 24H, Fishbone Vital Signs/I&O Vital Signs Date Time Temp Pulse Resp B/P (MAP) Pulse Ox O2 Delivery O2 Flow Rate FiO2 05/01/19 10:00 98.5 62 15 91/51 (64) 96 Room Air I&O- Last 24 Hours up to 6 AM 05/01/19 06:00 Intake Total 1170 ml Output Total 0 ml Balance 1170 ml Laboratory Data 24H LABS Laboratory Tests 2 05/01/19 06:30: Lymphocytes # (Auto) , Nucleated Red Blood Cells % (auto) 0.2H, Neutrophils 7L, Lymphocytes (Manual) 48H, Monocytes (Manual) 1, Eosinophils (Manual) 2, Atypical Lymphocytes 42H, Spherocytes 2+, Acanthocytes 1+, Platelet Estimate NORMAL, Anion Gap 6L, Glomerular Filtration Rate 49.9, Calcium Level 8.6L, Total Bili glover 0.8, Aspartate Amino Transf (AST/SGOT) 31, Alanine Aminotransferase (ALT/SGPT) 16, Alkaline Phosphatase 86, Total Protein 5.9L, Albumin 2.6L, Albumin/Globulin Ratio 0.79L CBC/BMP Laboratory Tests 05/01/19 06:30 Microbiology Microbiology 04/28/19 Stool Occult Blood (ADRIANA) - Final, Complete 04/26/19 Blood Culture - Preliminary, Resulted No Growth after 72 hours. All specime... 04/26/19 Blood Culture - Preliminary, Resulted No Growth after 72 hours. All specime... ADAMARIS ARGUETA MD May 01, 2019 10:36
[2019-05-01 12:48] LABS: PH BODY FLUID 7.618 UNITS (NOT ESTABLISHED); SOURCE, BODY FLUID pH PLEURAL
[2019-05-01 13:01] LABS: APPEARANCE, BODY FLUID CLEAR (CLEAR); PLEURAL FL COLOR YELLOW (COLORLESS); SOURCE, BODY FLUID PLEURAL
[2019-05-01 13:16] LABS: AMYLASE, BODY FLUID 29 U/L (NOT ESTABLISHED); LDH, BODY FLUID 67 U/L (NOT ESTABLISHED); SOURCE, BODY FLUID ALBUMIN PLEURAL; SOURCE, BODY FLUID AMYLASE PLEURAL; SOURCE, BODY FLUID GLUCOSE PLEURAL; SOURCE, BODY FLUID LDH PLEURAL; SOURCE, BODY FLUID TOT PROTEIN PLEURAL; TOTAL PROTEIN, BODY FLUID 2.5 G/DL (NOT ESTABLISHED)
--- NOTE | 2019-05-01 13:18 | REP ---
Chest x-ray: Two views sitting. History: Status post right thoracentesis. Comparison study: April 28, 2019. Findings: The right pleural effusion is improved. There is no evidence of pneumothorax. There is persistent blunting of the left lateral pleural angle. The radiographs are otherwise unchanged. Impression: Improved right pleural effusion post thoracentesis. No complication is seen. Electronically Signed by Darien Rebolledo MD 05/01/2019 01:09 P
--- NOTE | 2019-05-01 15:02 | REP ---
Ultrasound-guided thoracentesis The procedure was performed by ADRIAN Rodriguez, under the direct supervision of Dr. Rebolledo. The risks and benefits of the procedure were explained to the patient and informed consent was obtained both verbally and written. Directly prior to the start of the procedure, a formal timeout was completed in the exam room. Pleural fluid on the right lung zone was localized using ultrasound guidance. The skin was prepped and draped in a sterile fashion. 3 ml of 1% lidocaine 10 mg/ml was used as a local anesthetic. Using ultrasound guidance, an 8-Filipino multi side-hole catheter was inserted and advanced into the fluid. 1,280 ml of clear yellow colored fluid was withdrawn and sent to the lab for analysis. The patient tolerated the procedure well and there were no immediate complications, and the patient was discharged back to the unit. Reviewed by ADRIAN Arias 05/01/2019 01:34 P Electronically Signed by Darien Rebolledo MD 05/01/2019 01:49 P
[2019-05-02] VITALS (8 sets, daily range): BP systolic 95–105; BP diastolic 56–61
[2019-05-02 06:24] LABS: HEMATOCRIT 35.3 % (42.0-52.0); HEMOGLOBIN 11.5 g/dl (13.5-17.5); MEAN CORPUSCULAR HEMOGLOBIN 33.5 pg (27.0-33.0); MEAN CORPUSCULAR HGB CONC 32.6 g/dl (32.0-36.5); MEAN CORPUSCULAR VOLUME 102.9 fl (80.0-96.0); PLATELET COUNT, AUTOMATED 256 10^3/uL (150-450); RED BLOOD COUNT 3.43 10^6/uL (4.30-6.10)
[2019-05-02 06:26] LABS: WHITE BLOOD COUNT 29.9 10^3/uL (4.0-10.0)
[2019-05-02 06:56] LABS: ALBUMIN 2.6 GM/DL (3.2-5.2); BILIRUBIN,TOTAL 0.8 MG/DL (0.2-1.0); CALCIUM LEVEL 8.6 MG/DL (8.8-10.2); CREATININE FOR GFR 1.37 MG/DL (0.70-1.30); GLOMERULAR FILTRATION RATE 54.1 (>42); POTASSIUM SERUM 4.1 MEQ/L (3.5-5.1)
[2019-05-02 07:02] LABS: ANISOCYTOSIS 1+; ATYPICAL LYMPH 46 % (0-5); EOSINOPHILS 1 % (0-3); LYMPHOCYTES 44 % (16-44); MONOCYTES 2 % (0-5); NEUTROPHILS 7 % (28-66); PLATELET ESTIMATE NORMAL (NORMAL); SMUDGE CELLS 1+
[2019-05-02 07:05] LABS: OVALOCYTES 2+
[2019-05-02] MEDS: PANTOPRAZOLE 40MG TAB (PROTONIX) PO SCH (08:45)
[2019-05-02] MEDS: DIGOXIN 0.125 MG TAB PO SCH (08:45)
--- NOTE | 2019-05-02 17:23 | REP ---
Two-view chest: 05/02/2019. Indication: Post thoracentesis evaluation. Comparison: Yesterday. Findings: The left-sided pleural effusion has significantly decreased. There is no significant pneumothorax. The left lung is clear. Study is otherwise unchanged. Impression: Decreased size of the left-sided pleural effusion. No pneumothorax. Electronically Signed by Denzel Abreu DO 05/02/2019 05:15 P
--- NOTE | 2019-05-02 18:09 | IPNPDOC ---
Date Seen The patient was seen on 05/02/19. Progress Note SUBJECTIVE: 74-year-old male with past medical history of congestive heart failure, esophageal cancer, atrial fibrillation, chronic kidney disease, obstructive sleep apnea, mitral valve replacement was admitted for acute kidney injury and GI bleed. He underwent thoracentesis yesterday with removal of 1.2 L, is scheduled to undergo thoracentesis on the opposite side today. He remains in bed, comfortable, without any complaints at this time. He is frail and cachectic, reports poor oral intake, has difficulty eating solids due to esophageal cancer and subsequent surgery. He denies any shortness of breath, chest pain, nausea, vomiting, abdominal pain or diarrhea at this time. 10 point review of system is negative except for above PHYSICAL EXAMINATION: VITAL SIGNS: Please see below. GENERAL: No distress, frail, cachectic HEENT: Normocephalic, atraumatic, dry mucous membranes NECK: Supple CARDIOVASCULAR EXAMINATION: S1, S2, no murmurs RESPIRATORY EXAMINATION: Scattered rhonchi, no wheezing ABDOMINAL EXAMINATION: Soft, nontender, nondistended, positive bowel sounds EXTREMITIES: Range of motion intact SKIN: No rash NEUROLOGICAL EXAMINATION: Alert and oriented 3, no focal deficits PSYCHIATRIC EXAMINATION: Calm and cooperative LABORATORY DATA, IMAGING STUDIES, MICROBIOLOGY: Please see below. DVT prophylaxis ordered?: No ASSESSMENT AND PLAN: 44-year-old male with past medical history esophageal cancer, CLL, congestive heart failure, atrial fibrillation, chronic kidney disease, obstructive sleep apnea, mitral valve replacement was admitted for acute kidney injury and GI bleed. PROBLEMS: 1. Bilateral Pleural effusions: Status post right-sided thoracentesis yesterday, transudative, possibly due to congestive heart failure and/or hypoalbuminemia, scheduled to undergo left-sided thoracentesis today, asymptomatic.. 2. GI bleed: Status post EGD, received 2 units of packed red blood cells, H&H stable, continue PPI. 3. Esophageal cancer: Status post surgical resection. 4. CLL: Stable, follow with Dr. Merino. 5. Atrial fibrillation: Continue Eliquis and digoxin DVT prophylaxis: On Eliquis GI prophylaxis: Home PPI VS, I&O, 24H, Fishbone Vital Signs/I&O Vital Signs Date Time Temp Pulse Resp B/P (MAP) Pulse Ox O2 Delivery O2 Flow Rate FiO2 05/02/19 17:33 97.9 66 15 105/59 (74) 95 Room Air I&O- Last 24 Hours up to 6 AM 05/02/19 06:00 Intake Total 720 ml Output Total 450 ml Balance 270 ml Laboratory Data 24H LABS Laboratory Tests 2 05/02/19 05:58: Lymphocytes # (Auto) , Nucleated Red Blood Cells % (auto) 0.0, Neutrophils 7L, Lymphocytes (Manual) 44, Monocytes (Manual) 2, Eosinophils (Manual) 1, Atypical Lymphocytes 46H, Anisocytosis 1+, Macrocytosis 1+, Ovalocytes 2+, Acanthocytes 1+, Smudge Cells 1+, Platelet Estimate NORMAL, Anion Gap 4L, Glomerular Filtration Rate 54.1, Calcium Level 8.6L, Total Bilirubin 0.8, Aspartate Amino Transf (AST/SGOT) 25, Alanine Aminotransferase (ALT/SGPT) 14, Alkaline Phosphatase 90, Total Protein 6.0L, Albumin 2.6L, Albumin/Globulin Ratio 0.76L CBC/BMP Laboratory Tests 05/02/19 05:58 Microbiology Microbiology 05/01/19 Acid Fast Stain, Received Pending 05/01/19 Mycobacterial Culture, Received Pending 05/01/19 Fungal Smear, Received Pending 05/01/19 Fungal Culture, Received Pending 05/01/19 Gram Stain - Final, Resulted 05/01/19 Anaerobic Culture, Resulted Pending 05/01/19 Body Fluid Culture, Received Pending 04/28/19 Stool Occult Blood (ADRIANA) - Final, Complete 04/26/19 Blood Culture - Final, Complete NO GROWTH AFTER 5 DAYS 04/26/19 Blood Culture - Final, Complete NO GROWTH AFTER 5 DAYS RAFY BERMAN MD May 02, 2019 18:08
[2019-05-02 19:05] LABS: LDH, BODY FLUID 65 U/L (NOT ESTABLISHED); SOURCE, BODY FLUID GLUCOSE PLEURAL; SOURCE, BODY FLUID LDH PLEURAL; SOURCE, BODY FLUID TOT PROTEIN PLEURAL; TOTAL PROTEIN, BODY FLUID 2.2 G/DL (NOT ESTABLISHED)
[2019-05-02 19:13] LABS: APPEARANCE, BODY FLUID CLEAR (CLEAR); PLEURAL FL COLOR YELLOW (COLORLESS); SOURCE, BODY FLUID PLEURAL
[2019-05-02] MEDS: APIXABAN 5 MG TAB (ELIQUIS) PO SCH (20:42)
[2019-05-03 02:00] VITALS: BP 99/59
[2019-05-03 06:00] VITALS: BP 95/66
[2019-05-03 06:37] LABS: HEMOGLOBIN 11.9 g/dl (13.5-17.5); MEAN CORPUSCULAR HEMOGLOBIN 33.9 pg (27.0-33.0); MEAN CORPUSCULAR HGB CONC 33.1 g/dl (32.0-36.5); MEAN CORPUSCULAR VOLUME 102.6 fl (80.0-96.0); PLATELET COUNT, AUTOMATED 238 10^3/uL (150-450); RED BLOOD COUNT 3.51 10^6/uL (4.30-6.10); WHITE BLOOD COUNT 27.6 10^3/uL (4.0-10.0)
[2019-05-03 07:00] LABS: CALCIUM LEVEL 8.6 MG/DL (8.8-10.2); CREATININE FOR GFR 1.29 MG/DL (0.70-1.30); MAGNESIUM LEVEL 2.4 MG/DL (1.8-2.4); PHOSPHORUS LEVEL 2.7 MG/DL (2.5-4.9); POTASSIUM SERUM 4.4 MEQ/L (3.5-5.1)
[2019-05-03] MEDS: APIXABAN 5 MG TAB (ELIQUIS) PO SCH (08:52)
[2019-05-03] MEDS: DIGOXIN 0.125 MG TAB PO SCH (08:52)
[2019-05-03] MEDS: PANTOPRAZOLE 40MG TAB (PROTONIX) PO SCH (08:52)
[2019-05-03 10:00] VITALS: BP 96/62
[2019-05-03] MEDS ORDERED: TORS20TA2 PO (12:27)
--- NOTE | 2019-05-03 16:23 | DS.PDOC ---
Discharge Summary General Date of Admission Apr 27, 2019 at 01:00 Date of Discharge 05/03/2019 Attending Physician: RAFY BERMAN MD Discharge Summary PROCEDURES PERFORMED DURING STAY: None. ADMITTING DIAGNOSES: 1. Acute kidney injury, GI bleed. DISCHARGE DIAGNOSES: 1. Acute kidney injury, GI bleed. COMPLICATIONS/CHIEF COMPLAINT: Dyspnea,Pleural Effusion. HISTORY OF PRESENT ILLNESS: 74-year-old male with past medical history of congestive heart failure, esophageal cancer, atrial fibrillation, mitral valve repair, see daily, obstructive sleep apnea, CLL, was admitted for acute kidney injury and GI bleed. He underwent EGD which was unable to find an etiology of his bleed, he received 2 units of packed red blood cells total, H&H has remained stable since. He will continue his PPI and Pepcid. Acute kidney injury, resolved with IV fluids and blood transfusion, renal function at baseline. He was also found to have bilateral pleural effusions underwent bilateral thoracentesis with removal of 1.2 and 1.1 L respectively, transudative, likely due to heart failure and hypoalbuminemia. Patient is clinically close to his baseline, evaluate with physical therapy and cleared for discharge home. Patient has no other complaints at this time, will follow up with Dr. Merino and PCP in the outpatient setting. HOSPITAL COURSE: As above. DISCHARGE MEDICATIONS: Please see below. ALLERGIES: Please see below. PHYSICAL EXAMINATION: VITAL SIGNS: Please see below. GENERAL: No distress, frail, cachectic HEENT: Normocephalic, atraumatic, dry mucous membranes NECK: Supple CARDIOVASCULAR EXAMINATION: S1, S2, no murmurs RESPIRATORY EXAMINATION: Scattered rhonchi, no wheezing ABDOMINAL EXAMINATION: Soft, nontender, nondistended, positive bowel sounds EXTREMITIES: Range of motion intact SKIN: No rash NEUROLOGICAL EXAMINATION: Alert and oriented 3, no focal deficits PSYCHIATRIC EXAMINATION: Calm and cooperative LABORATORY DATA: Please see below. PROGNOSIS: Guarded ACTIVITY: As tolerated. DIET: Regular DISCHARGE PLAN: Follow with Dr. Merino and PCP in 1-2 weeks DISPOSITION: Home, Self-Care. DISCHARGE INSTRUCTIONS: 1. As above. DISCHARGE CONDITION: Stable. TIME SPENT ON DISCHARGE: Greater than 35 minutes. Vital Signs/I&Os Vital Signs Date Time Temp Pulse Resp B/P (MAP) Pulse Ox O2 Delivery O2 Flow Rate FiO2 05/03/19 10:00 97.9 67 17 96/62 (73) 96 Room Air I&O- Last 24 Hours up to 6 AM 05/03/19 06:00 Intake Total 1020 ml Output Total 450 ml Balance 570 ml Laboratory Data Labs 24H Laboratory Tests 2 05/02/19 16:50: Body Fluid WBC (Auto) 74H, Body Fluid RBC (Auto) < 2, Body Fluid Mononuclear Cells % Auto 94.6H, Fluid Polymorphonuclear Cell % Auto 5.4H, Body Fluid Glucose Source PLEURAL, Body Fluid Glucose 98, Body Fluid Protein Source PLEURAL, Body Fluid Total Protein 2.2, Body Fluid LDH Source PLEURAL, Body Fluid Lactate Dehydrogenase 65, Pleural Fluid Source PLEURAL, Pleural Fluid Color YELLOW, Pleural Fluid Appearance CLEAR 05/03/19 06:09: Nucleated Red Blood Cells % (auto) 0.1H, Anion Gap 5L, Glomerular Filtration Rate 58.0, Calcium Level 8.6L, Phosphorus Level 2.7, Magnesium Level 2.4 CBC/BMP Laboratory Tests 05/03/19 06:09 Microbiology Microbiology 05/02/19 Gram Stain - Final, Resulted 05/02/19 Body Fluid Culture, Resulted Pending 05/01/19 Acid Fast Stain, Received Pending 05/01/19 Mycobacterial Culture, Received Pending 05/01/19 Fungal Smear, Received Pending 05/01/19 Fungal Culture, Received Pending 05/01/19 Gram Stain - Final, Complete 05/01/19 Anaerobic Culture - Final, Complete 05/01/19 Body Fluid Culture - Final, Complete 04/28/19 Stool Occult Blood (ADRIANA) - Final, Complete 04/26/19 Blood Culture - Final, Complete NO GROWTH AFTER 5 DAYS 04/26/19 Blood Culture - Final, Complete NO GROWTH AFTER 5 DAYS Discharge Medications Scheduled Amiloride HCl (Amiloride HCl) 5 Mg Tab, 5 MG PO DAILY, (Reported) Apixaban (Eliquis) 5 Mg Tablet, 5 MG PO BID, (Reported) Digoxin (Digoxin) 125 Mcg Tablet, 125 MCG PO DAILY, (Reported) Pantoprazole Sodium (Pantoprazole Sodium) 40 Mg Tab, 40 MG PO DAILY, (Reported) Sertraline HCl (Sertraline HCl) 25 Mg Tablet, 25 MG PO DAILY, (Reported) Torsemide (Torsemide) 20 Mg Tablet, 80 MG PO DAILY Allergies Coded Allergies: No Known Allergies (Unverified , 09/13/18) RAFY BERMAN MD May 03, 2019 16:23
--- NOTE | 2019-05-03 17:54 | REP ---
Ultrasound-guided thoracentesis The procedure was performed by ADRIAN Rodriguez, under the direct supervision of Dr. Rebolledo. The risks and benefits of the procedure were explained to the patient and informed consent was obtained both verbally and written. Directly prior to the start of the procedure, a formal timeout was completed in the exam room. Pleural fluid on the left lung zone was localized using ultrasound guidance. The skin was prepped and draped in a sterile fashion. 2 of 1% lidocaine 10 mg/ml was used as a local anesthetic. Using ultrasound guidance, an 8-Kosovan multi side-hole catheter was inserted and advanced into the fluid. 1,120 ml of clear yellow colored fluid was withdrawn and sent to the lab for analysis. The patient tolerated the procedure well and there were no immediate complications. After the appropriate amount of monitored convalescence, the patient was discharged from the department. Reviewed by ADRIAN Arias 05/02/2019 06:22 P Electronically Signed by Darien Rebolledo MD 05/03/2019 05:44 P
== END 2019-05-03 13:38 | disposition home health service (06) | DRG 871 ==
LOC: M ED 20:59 → M ED INP 04-27 01:00 → M MSPAV 04-27 15:00
PROVIDERS: ADMIT Internal Medicine; ATTEND Internal Medicine
PROC: 30233N1 Transfusion of Nonautologous Red Blood Cells into Peripheral Vein, Percutaneous Approach (ICD-10-PCS; 2019-04-28)
PROC: 0W993ZZ Drainage of Right Pleural Cavity, Percutaneous Approach (ICD-10-PCS; principal; 2019-05-01 12:00)
PROC: 0W9B3ZZ Drainage of Left Pleural Cavity, Percutaneous Approach (ICD-10-PCS; 2019-05-02)
DX: A41.9 Sepsis, unspecified organism (principal); J18.9 Pneumonia, unspecified organism; J90 Pleural effusion, not elsewhere classified; Z68.1 Body mass index [BMI] 19.9 or less, adult; E46 Unspecified protein-calorie malnutrition; I50.32 Chronic diastolic (congestive) heart failure; I45.2 Bifascicular block; E87.2 Acidosis; K92.2 Gastrointestinal hemorrhage, unspecified; C91.90 Lymphoid leukemia, unspecified not having achieved remission; D53.9 Nutritional anemia, unspecified; L89.152 Pressure ulcer of sacral region, stage 2; I48.0 Paroxysmal atrial fibrillation; Z79.899 Other long term (current) drug therapy; Z85.01 Personal history of malignant neoplasm of esophagus; Z95.0 Presence of cardiac pacemaker; I08.3 Combined rheumatic disorders of mitral, aortic and tricuspid valves; M81.0 Age-related osteoporosis without current pathological fracture; N18.2 Chronic kidney disease, stage 2 (mild); Z90.81 Acquired absence of spleen; G47.00 Insomnia, unspecified

== ENCOUNTER → 2019-05-14 | Outpatient (REF) | payer MEDICARE ==
[~2019-05-14] MED LIST changes: +SERT25TA21 PO; +ZOLO25TA PO
== END ==
LOC: M LAB REF 13:30
PROVIDERS: ATTEND Internal Medicine
DX: R19.7 Diarrhea, unspecified (principal)

== ENCOUNTER → 2019-05-18 | Outpatient (REF) | payer MEDICARE ==
[2019-05-18 18:56] LABS: ATYPICAL LYMPH 6 % (0-5); BASOPHILS 1 % (0-1); LYMPHOCYTES 80 % (16-44); NEUTROPHILS 13 % (28-66)
[2019-05-18 18:59] LABS: ANISOCYTOSIS 1+; POIKILOCYTOSIS 2+
[2019-05-18 19:00] LABS: BURR CELLS 2+; PLATELET ESTIMATE NORMAL (NORMAL)
[2019-05-18 19:01] LABS: SMUDGE CELLS 1+
== END ==
LOC: M LAB REF 16:46
PROVIDERS: ATTEND Internal Medicine
DX: I13.0 Hypertensive heart and chronic kidney disease with heart failure and stage 1 through stage 4 chronic kidney disease, or unspecified chronic kidney disease (principal); D72.829 Elevated white blood cell count, unspecified; I48.0 Paroxysmal atrial fibrillation

== ENCOUNTER → 2019-05-22 | Outpatient (REF) | payer MEDICARE | LOC: M SHH 13:39 | PROVIDERS: ATTEND Internal Medicine | DX: I48.0 Paroxysmal atrial fibrillation (principal) ==

== ENCOUNTER 2019-05-26 11:41 | Outpatient (CLI) | payer MEDICARE ==
[~2019-05-26] VITALS: Ht 182.9 cm; Wt 54.5 kg
[2019-05-26] VITALS (7 sets, daily range): BP systolic 91–117; BP diastolic 50–59
[2019-05-26] MEDS ORDERED: diphenhydrAMINE 50 MG CAP PO ONE (12:00)
[2019-05-26] MEDS ORDERED: ACETAMINOPHEN TAB 650MG DOSE (2X325MG) PO ONE (12:00)
[2019-05-26] MEDS ORDERED: FUROSEMIDE 20 MG/2 ML VIAL (J1940) IV ONE (15:00)
[2019-05-29] MEDS ORDERED: TORS20TA2 PO (09:06)
== END 2019-05-26 17:30 | disposition home or self-care (01) ==
LOC: M INFU 11:41
PROVIDERS: ATTEND Internal Medicine Medical Oncology
DX: D64.9 Anemia, unspecified (principal)
CPT/HCPCS: 36415; 36430; 85027; 86850; 86900; 86901; 86920; 96374; G0463; J1940; P9016

== ENCOUNTER 2019-07-11 11:40 | Outpatient (CLI) | payer MEDICARE ==
[~2019-07-11] VITALS: Ht 180.3 cm; Wt 53.6 kg
[~2019-07-11 11:40] MED LIST changes: +ACETAMINOPHEN TAB 650MG DOSE (2X325MG) PO SCH; -SANT250O8 TOP; -SERT-141 PO; +diphenhydrAMINE 25 MG CAP PO SCH
[2019-07-11 12:01] VITALS: BP 101/59
[2019-07-11 13:23] VITALS: BP 102/55
[2019-07-11 13:40] VITALS: BP 91/52
[2019-07-11 14:25] VITALS: BP_SYST 79; BP_SYST 81; BP_DIAS 46
[2019-07-11 15:11] VITALS: BP 82/46
[2019-07-11 15:30] VITALS: BP 86/52
[2019-07-11] MEDS ORDERED: SERT-141 PO (18:50)
[2019-07-11] MEDS ORDERED: SANT250O8 TOP (18:50)
[2019-07-11] MEDS ORDERED: TORS20TA2 PO (18:50)
== END 2019-07-11 15:30 | disposition home or self-care (01) ==
LOC: M INFU 11:40
PROVIDERS: ATTEND Internal Medicine
DX: D64.9 Anemia, unspecified (principal)

== ENCOUNTER 2019-07-11 15:35 | Inpatient (IN) | payer MEDICARE ==
[~2019-07-11] VITALS: Ht 177.8 cm; Wt 67.3 kg
[2019-07-11] VITALS (7 sets, daily range): BP systolic 81–89; BP diastolic 46–54
[~2019-07-11 15:35] MED LIST changes: -ACETAMINOPHEN TAB 650MG DOSE (2X325MG) PO SCH; -diphenhydrAMINE 25 MG CAP PO SCH
[2019-07-11] MEDS ORDERED: NS 1,000 ML IV ONE (17:30)
--- NOTE | 2019-07-11 18:26 | REP ---
CHEST, SINGLE VIEW: Single view of the chest is performed and compared to prior study of 05/02/2019. Moderate bilateral pleural effusions are noted in association with bibasilar infiltrates. Heart and mediastinum are unchanged in appearance. There are multiple sternal wires present. There is a prosthetic heart valve. Left dual lead pacemaker is again noted. Electronically Signed by Nabil Sharma MD 07/11/2019 08:24 P
[2019-07-11] MEDS ORDERED: TORS20TA2 PO (18:50)
[2019-07-11] MEDS ORDERED: SERT-141 PO (18:50)
[2019-07-11] MEDS ORDERED: SANT250O8 TOP (18:50)
--- NOTE | 2019-07-11 19:52 | HPEPDOC ---
[facility] Medical History & Physical Date of Admission Jul 11, 2019 Date of Service: Jul 11, 2019 Attending Physician: RAFY BERMAN MD History and Physical CHIEF COMPLAINT: Sent to the ED for anemia & hypotension HISTORY OF PRESENT ILLNESS: 74 y.o male w/ PMH of Afib (on Eliquis) s/p PPM, CHF, Mitral valve repair, Esophageal ca s/p resection, CAD, CLL & chronic anemia presents to the ED w/ severe anemia & hypotension. Patient had blood work done by Dr. Grayson, found to be severely anemia, send to the infusion center for PRBC transfusion. He received 1 unit of PRBC transfusion, remained hypotensive (SBP 80s) and was sent to the ED for further evaluation. In the ED, patient noted to be hypotensive with a POC hematocrit of 22; patient has been ordered to receive 2 additional units of PRBC. Patient denies any bleeding, change in stool color or consistency. He denies any previous history of GI bleed. He was admitted a few months ago for anemia, EGD at that time was unable to detect a source and patient was discharged with outpatient follow up. He sees Dr. Rascon in the outpatient setting. As far as how knows, all of his work up for anemia has been negative. He feels at baseline, denies any increased fatigue, dyspnea, dizziness or CP. He has no medical complaints at this time, unsure why he needed to be sent to the ED. 10 point review of system is negative except for above. PAST MEDICAL HISTORY: 1. Afib 2. CHF 3. CAD 4. Esophageal Ca 5. CLL PAST SURGICAL HISTORY: 1. Mitral valve repair SOCIAL HISTORY: Previous smoker denies alcohol use denies drug use FAMILY HISTORY: positive for heart disease ALLERGIES: Please see below. HOME MEDICATIONS: Please see below. PHYSICAL EXAMINATION: VITAL SIGNS: See below GENERAL APPEARANCE: frail, cachectic HEENT: moist mucus membranes CARDIOVASCULAR: Irregular, distant LUNGS: diminished in the bases, scattered rhonchi ABDOMEN: soft, non-tender, non-distended, +BS EXTREMITIES: ROM intact NEUROLOGICAL: no focal deficits PSYCHIATRIC: calm LABORATORY DATA: See below. IMAGING: CXR w/ bilateral pleural effusions & compressive atelectasis MICROBIOLOGY: Please see below. ASSESSMENT: 74 y.o male w/ multiple medical comorbidities including chronic transfusions dependent anemia presents from infusion center w/ anemia & hypotension. PLAN: 1. Anemia - chronic, unknown etiology, ?related to history of CLL, hematocrit of 22 in the ED AFTER receiving 1 unit of PRBC, ordered to receive 2 additional units of PRBC, patient asymptomatic, at baseline, will monitor volume status given history of CHF & hypoalbuminemia, may require additional diuresis. continue Protonix 2. Hypotension - likely at baseline, asymptomatic, will monitor for now, will not treat aggressively given patient's history & frail state. 3. CHF - continue Torsemide & Amiloride 4. Afib - continue Eliquis DVT Prophylaxis - Eliquis GI Prophylaxis - PPI Vital Signs Vital Signs Date Time Temp Pulse Resp B/P (MAP) Pulse Ox O2 Delivery O2 Flow Rate FiO2 07/11/19 18:15 94/61 (72) 07/11/19 18:05 74 16 94 07/11/19 15:59 Room Air 07/11/19 15:36 96.7 Laboratory Data Labs 24H Laboratory Tests 2 07/11/19 17:26: POC Glucose (Misc Panel) 83, POC Sodium (Misc Panel) 132L, POC Potassium (Misc Panel) 4.3, POC Chloride (Misc Panel) 89L, POC Total CO2 (Misc Panel) 35.0H, POC Blood Urea Nitrogen (Misc Panel 42H, POC Ionized Calcium (Misc Panel) 4.4L, POC Creatinine (Misc Panel) 1.3, POC Hematocrit (Misc Panel) 22.0L Home Medications Scheduled Amiloride HCl (Amiloride HCl) 5 Mg Tab, 5 MG PO DAILY Only if systolic is over 100 Apixaban (Eliquis) 5 Mg Tablet, 5 MG PO BID Collagenase Clostridium Hist. (Santyl) 30 Gm Oint...g., 1 APPLIC TOP DAILY TO WOUNDS ON TAILBONE AND LOWER BACK Pantoprazole Sodium (Pantoprazole Sodium) 40 Mg Tab, 40 MG PO DAILY Sertraline Hcl (Sertraline HCl) 50 Mg Tablet, 50 MG PO DAILY Torsemide (Torsemide) 20 Mg Tablet, 40 MG PO BID Allergies Coded Allergies: No Known Allergies (Unverified , 09/13/18) A-FIB/CHADSVASC A-FIB History Current/History of A-Fib/PAF?: Yes Current PO Anticoag Therapy: Yes RAFY BERMAN MD Jul 11, 2019 19:52
[2019-07-11 20:35] LABS: HEMATOCRIT 24.7 % (42.0-52.0); HEMOGLOBIN 8.3 g/dl (13.5-17.5); MEAN CORPUSCULAR HEMOGLOBIN 31.8 pg (27.0-33.0); MEAN CORPUSCULAR HGB CONC 33.6 g/dl (32.0-36.5); MEAN CORPUSCULAR VOLUME 94.6 fl (80.0-96.0); PLATELET COUNT, AUTOMATED 272 10^3/uL (150-450); RED BLOOD COUNT 2.61 10^6/uL (4.30-6.10)
[2019-07-11 20:43] LABS: WHITE BLOOD COUNT 36.4 10^3/uL (4.0-10.0)
[2019-07-11] MEDS: APIXABAN 5 MG TAB (ELIQUIS) PO SCH (21:43)
[2019-07-12 01:08] LABS: HEMATOCRIT 25.7 % (42.0-52.0); HEMOGLOBIN 8.6 g/dl (13.5-17.5)
[2019-07-12 04:00] VITALS: BP 94/57
[2019-07-12 05:12] LABS: HEMATOCRIT 28.7 % (42.0-52.0); HEMOGLOBIN 9.6 g/dl (13.5-17.5); MEAN CORPUSCULAR HEMOGLOBIN 30.5 pg (27.0-33.0); MEAN CORPUSCULAR HGB CONC 33.4 g/dl (32.0-36.5); MEAN CORPUSCULAR VOLUME 91.1 fl (80.0-96.0); PLATELET COUNT, AUTOMATED 282 10^3/uL (150-450); RED BLOOD COUNT 3.15 10^6/uL (4.30-6.10)
[2019-07-12 05:13] LABS: WHITE BLOOD COUNT 30.6 10^3/uL (4.0-10.0)
[2019-07-12 05:35] LABS: ALBUMIN 2.9 GM/DL (3.2-5.2); BILIRUBIN,TOTAL 1.3 MG/DL (0.2-1.0); CALCIUM LEVEL 8.7 MG/DL (8.8-10.2); CREATININE FOR GFR 1.83 MG/DL (0.70-1.30); GLOMERULAR FILTRATION RATE 38.7 (>42); MAGNESIUM LEVEL 2.8 MG/DL (1.8-2.4); POTASSIUM SERUM 4.5 MEQ/L (3.5-5.1); TOTAL PROTEIN 6.2 GM/DL (6.4-8.2)
[2019-07-12 08:00] VITALS: BP 105/56
--- NOTE | 2019-07-12 08:04 | ECGEPIP ---
[facility] - ED Test Date: 2019-07-11 Pat Name: RASHAWN VALENCIA Department: Room: [place] [address] Gender: Male Advertising Copywriter: GRACE : 1945 Requested By: Carlo Pacheco Order Number: [id number] Reading MD: Carlo Lopez Measurements Intervals Caroleen Rate: 86 P: 250 PA: 245 QRS: 241 QRSD: 148 T: 19 QT: 452 QTc: 542 Interpretive Statements SINUS RHYTHM WITH FIRST DEGREE AV BLOCK MARKED RIGHT AXIS DEVIATION RIGHT BUNDLE BRANCH BLOCK Electronically Signed on 07-12-2019 8:03:41 EST by Carlo Lopez
[2019-07-12] MEDS ORDERED: PANTOPRAZOLE 40MG TAB (PROTONIX) PO SCH (09:00)
[2019-07-12] MEDS ORDERED: SERTRALINE HCL 50 MG TAB PO SCH (09:00)
[2019-07-12] MEDS ORDERED: SANTYL OINT 30GM TOP SCH (09:00)
[2019-07-12] MEDS ORDERED: aMILoride 5 MG TAB PO SCH (09:00)
[2019-07-12] MEDS ORDERED: TORSEMIDE 20 MG TAB PO SCH (09:00)
[2019-07-12] MEDS: APIXABAN 5 MG TAB (ELIQUIS) PO SCH (09:11)
[2019-07-12] MEDS ORDERED: ACETAMINOPHEN TAB 650MG DOSE (2X325MG) PO PRN (13:00)
[2019-07-12 13:16] LABS: CALCIUM LEVEL 8.5 MG/DL (8.8-10.2); CREATININE FOR GFR 1.7 MG/DL (0.70-1.30); GLOMERULAR FILTRATION RATE 42.2 (>42); POTASSIUM SERUM 4.5 MEQ/L (3.5-5.1)
--- NOTE | 2019-07-12 20:52 | DS.PDOC ---
Discharge Summary General Date of Admission Jul 11, 2019 at 18:28 Date of Discharge 07/12/19 Attending Physician: RAFY BERMAN MD Discharge Summary PROCEDURES PERFORMED DURING STAY: None ADMITTING DIAGNOSES: 1. Severe anemia DISCHARGE DIAGNOSES: 1. severe anemia COMPLICATIONS/CHIEF COMPLAINT: Anemia/Chf/Chronic Hypoension/Esophageal Mau. HISTORY OF PRESENT ILLNESS: 74 y.o male w/ an extensive medical history including chronic anemia was admitted for severe anemia. He received a total of 3 units PRBC, currently asymptomatic, no signs of active bleeding. He has had recent GI workup for anemia which was unable to find an etiology. Patient is clinically and hemodynamically stable at this time. Patient's creatinine was elevated from baseline, likely from the hypotension at presentation, rechecked in the afternoon showed slight improvement in creatinine. Patient's Torsemide dose will be decreased and he is strongly advised to follow up w/ Heating And Air Conditioning Mechanic & Knitted Cloth Examiner for follow up and further management. Patient is stable for discharge home and outpatient follow up at this time. HOSPITAL COURSE: As above DISCHARGE MEDICATIONS: Please see below. ALLERGIES: Please see below. PHYSICAL EXAMINATION: VITAL SIGNS: See below GENERAL APPEARANCE: frail, cachectic HEENT: moist mucus membranes CARDIOVASCULAR: Irregular, distant LUNGS: diminished in the bases, scattered rhonchi ABDOMEN: soft, non-tender, non-distended, +BS EXTREMITIES: ROM intact NEUROLOGICAL: no focal deficits PSYCHIATRIC: calm LABORATORY DATA: Please see below. PROGNOSIS: Guarded ACTIVITY: As tolerated DIET: Cardiac DISCHARGE PLAN: f/u with Oncologist, Knitted Cloth Examiner, Heating And Air Conditioning Mechanic & PCP in 1-2 weeks DISPOSITION: 06 Home Health Service. DISCHARGE INSTRUCTIONS: 1. As above DISCHARGE CONDITION: Stable TIME SPENT ON DISCHARGE: Greater than 35 minutes. Vital Signs/I&Os Vital Signs Date Time Temp Pulse Resp B/P (MAP) Pulse Ox O2 Delivery O2 Flow Rate FiO2 07/12/19 08:00 98.2 83 18 105/56 (72) 92 07/12/19 04:00 Room Air I&O- Last 24 Hours up to 6 AM 07/12/19 06:00 Intake Total 2263 ml Output Total 380 ml Balance 1883 ml Laboratory Data Labs 24H Laboratory Tests 2 07/12/19 04:44: Nucleated Red Blood Cells % (auto) 1.3H, Anion Gap 6L, Glomerular Filtration Rate 38.7L, Calcium Level 8.7L, Magnesium Level 2.8H, Total Bilirubin 1.3H, Aspartate Amino Transf (AST/SGOT) 29, Alanine Aminotransferase (ALT/SGPT) 18, Alkaline Phosphatase 113, Total Protein 6.2L, Albumin 2.9L, Albumin/Globulin Ratio 0.88L 07/12/19 12:25: Anion Gap 4L, Glomerular Filtration Rate 42.2, Calcium Level 8.5L CBC/BMP Laboratory Tests 07/12/19 00:48 07/12/19 04:44 07/12/19 12:25 Discharge Medications Scheduled Amiloride HCl (Amiloride HCl) 5 Mg Tab, 5 MG PO DAILY, (Reported) Only if systolic is over 100 Apixaban (Eliquis) 5 Mg Tablet, 5 MG PO BID, (Reported) Collagenase Clostridium Hist. (Santyl) 30 Gm Oint...g., 1 APPLIC TOP DAILY, (Reported) TO WOUNDS ON TAILBONE AND LOWER BACK Pantoprazole Sodium (Pantoprazole Sodium) 40 Mg Tab, 40 MG PO DAILY, (Reported) Sertraline Hcl (Sertraline HCl) 50 Mg Tablet, 50 MG PO DAILY, (Reported) Allergies Coded Allergies: No Known Allergies (Unverified , 09/13/18) RAFY BERMAN MD Jul 12, 2019 20:52
== END 2019-07-12 15:45 | disposition home health service (06) | DRG 812 ==
LOC: M ED 15:35 → M ED INP 18:28 → ENRESERVTM 19:04 → ENRESERVDT 19:04 → M PCU 19:49
PROVIDERS: ADMIT Internal Medicine; ATTEND Internal Medicine
PROC: 30233N1 Transfusion of Nonautologous Red Blood Cells into Peripheral Vein, Percutaneous Approach (ICD-10-PCS; principal; 2019-07-11)
DX: D64.9 Anemia, unspecified (principal); C91.10 Chronic lymphocytic leukemia of B-cell type not having achieved remission; I95.9 Hypotension, unspecified; Z79.899 Other long term (current) drug therapy; I48.91 Unspecified atrial fibrillation; Z85.01 Personal history of malignant neoplasm of esophagus; I25.10 Atherosclerotic heart disease of native coronary artery without angina pectoris; Z79.01 Long term (current) use of anticoagulants; I50.9 Heart failure, unspecified; Z87.891 Personal history of nicotine dependence

== ENCOUNTER → 2019-07-11 | Outpatient (REF) | payer MEDICARE ==
[~2019-07-11] MED LIST changes: +SANT250O8 TOP; +SERT-141 PO
[2019-07-11 12:34] LABS: TOTAL PROTEIN 6.3 GM/DL (6.4-8.2)
[2019-07-11 12:45] LABS: ATYPICAL LYMPH 28 % (0-5); LYMPHOCYTES 54 % (16-44); MONOCYTES 1 % (0-5); NEUTROPHILS 17 % (28-66); NUCLEATED RED BLOOD CELL 1 % (0-0)
[2019-07-11 12:46] LABS: ANISOCYTOSIS 2+; POIKILOCYTOSIS 3+
[2019-07-11 12:47] LABS: PLATELET ESTIMATE NORMAL (NORMAL)
[2019-07-11 18:56] LABS: PERCENT SATURATION 89.8 % (19.7-50.0)
[2019-07-11 19:20] LABS: FOLATE 14.4 NG/ML
[2019-07-13 10:53] LABS: ALBUMIN 3.62 GM/DL (3.29-5.55); ALBUMIN % 57.4 % (55.8-66.1); ALPHA-1-GLOBULIN % 3.5 % (2.9-4.9); ALPHA-1-GLOBULINS 0.22 GM/DL (0.17-0.41); ALPHA-2-GLOBULINS 0.43 GM/DL (0.42-0.99); ALPHA-2-GLOBULINS % 6.9 % (7.1-11.8)
[2019-07-13 10:54] LABS: BETA-1-GLOBULINS % 4.7 % (4.7-7.2); BETA-2-GLOBULINS 0.56 GM/DL (0.19-0.55); BETA-2-GLOBULINS % 8.9 % (3.2-6.5); GAMMA GLOBULIN % 18.6 % (11.1-18.8); GAMMA GLOBULINS 1.17 GM/DL (0.65-1.58)
== END ==
LOC: M LAB REF 12:06
PROVIDERS: ATTEND Internal Medicine
DX: D72.829 Elevated white blood cell count, unspecified (principal); D64.9 Anemia, unspecified

== ENCOUNTER → 2019-07-20 | Outpatient (REF) | payer MEDICARE ==
[~2019-07-20] MED LIST changes: +SANT250O8 TOP; +SERT-141 PO
== END ==
LOC: M LAB REF 16:33
PROVIDERS: ATTEND Internal Medicine
DX: D64.9 Anemia, unspecified (principal); N18.3 Chronic kidney disease, stage 3 (moderate); I50.32 Chronic diastolic (congestive) heart failure

== ENCOUNTER 2019-07-25 15:32 | Inpatient (IN) | payer MEDICARE ==
[~2019-07-25] VITALS: Ht 180.3 cm; Wt 56.6 kg
[2019-07-25 17:10] LABS: HEMATOCRIT 25.2 % (42.0-52.0); HEMOGLOBIN 8.1 g/dl (13.5-17.5); MEAN CORPUSCULAR HGB CONC 32.1 g/dl (32.0-36.5); MEAN CORPUSCULAR VOLUME 99.6 fl (80.0-96.0); PLATELET COUNT, AUTOMATED 186 10^3/uL (150-450); RED BLOOD COUNT 2.53 10^6/uL (4.30-6.10)
[2019-07-25 17:37] LABS: WHITE BLOOD COUNT 30.3 10^3/uL (4.0-10.0)
[2019-07-25 17:48] LABS: ATYPICAL LYMPH 5 % (0-5); LYMPHOCYTES 84 % (16-44); MONOCYTES 3 % (0-5); NEUTROPHILS 7 % (28-66); PLATELET ESTIMATE NORMAL (NORMAL)
[2019-07-25 17:50] LABS: ANISOCYTOSIS 3+; BURR CELLS 2+; HYPOCHROMASIA 1+; SCHISTOCYTES 1+
[2019-07-25 17:52] LABS: TARGET CELLS 1+
--- NOTE | 2019-07-25 18:08 | REP ---
HISTORY: Dyspnea. COMPARISON: Multiple, the latest is 07/11/2019. The technique utilized in obtaining the radiograph has magnified the cardiac silhouette and accentuated the interstitial markings. There are bilateral pleural effusions, status quo. There has been previous median sternotomy with aortic valvular replacement, status quo. There are bilateral lower lung field opacities, status quo. There is no change in the osseous structures. There is no change in the cardiomediastinal silhouette. IMPRESSION: No change. Electronically Signed by Navid Merchant DO 07/25/2019 07:33 P
[2019-07-25 18:48] LABS: BLOOD UREA NITROGEN 19 MG/DL (7-18); CALCIUM LEVEL 8.2 MG/DL (8.8-10.2); CARBON DIOXIDE LEVEL 31 MEQ/L (21-32); CHLORIDE LEVEL 103 MEQ/L (98-107); CREATININE FOR GFR 1.18 MG/DL (0.70-1.30); GLOMERULAR FILTRATION RATE > 60.0 (>42); GLUCOSE, FASTING 103 MG/DL (70-100); POTASSIUM SERUM 6.3 MEQ/L (3.5-5.1); SODIUM LEVEL 137 MEQ/L (136-145)
[2019-07-25] MEDS ORDERED: HumuLIN R (REGULAR) INSULIN (NovoLIN R) **100U/ML** PER UNIT IV STA (18:48)
[2019-07-25] MEDS ORDERED: DEXTROSE 50% 50 ML SYRINGE IV STA (18:48)
[2019-07-25] MEDS ORDERED: ACET-897 PO (18:51)
[2019-07-25] MEDS ORDERED: CALCIUM CHLORIDE 10% 1 GM in D5W 100 ML IV ONE (19:00)
[2019-07-25] MEDS ORDERED: ACETAMINOPHEN TAB 650MG DOSE (2X325MG) PO PRN (19:15)
[2019-07-25] MEDS ORDERED: MOM 30ML SUSPENSION UDC PO PRN (19:15)
[2019-07-25] MEDS ORDERED: MAALOX 30 ML SUSP *UDC PO PRN (19:15)
--- NOTE | 2019-07-25 19:20 | HPEPDOC ---
[facility] Medical History & Physical Date of Admission Jul 25, 2019 Date of Service: Jul 25, 2019 Primary Care Physician: Jr Bahena Collins Attending Physician: LEYDI RAWLS MD History and Physical TIME OF SERVICE: 7:35 PM CHIEF COMPLAINT: Sent by home RN HISTORY OF PRESENT ILLNESS: This 74-year-old male was sent to the hospital by his home RN because his blood pressure was low. He denies having headaches, chest pain, shortness of breath, or feeling weak. He continues to have chronic back pain. Because his hemoglobin was 8.1, PRBCs were been ordered. He received calcium chloride, insulin and dextrose because his potassium was 6.3. REVIEW OF SYSTEMS: 12 point review of systems negative except as listed in HPI PAST MEDICAL / SURGICAL HISTORY: Chronic anemia A Fib CAD Esophageal Ca CLL Mitral valve repair Severe tricuspid valve regurgitation with dilated right ventricle and right atrium and elevated central venous pressure Aortic valve sclerosis without stenosis Pacemaker insertion SOCIAL HISTORY: Previous smoker denies alcohol use denies drug use FAMILY HISTORY: positive for heart disease ALLERGIES: Please see below. HOME MEDICATIONS: Please see below. Vital Signs Date Time Temp Pulse Resp B/P (MAP) Pulse Ox O2 Delivery O2 Flow Rate FiO2 07/25/19 15:48 97.2 72 16 99/56 (70) 98 Room Air PHYSICAL EXAMINATION: GEN: Cachectic / well developed/ NAD INTEGUMENT: not flushed/ not jaundice HEENT: NCAT / lips acyanotic /mucus membranes moist and pink CVS: RRR/NMRG/ no lower extremity edema LUNGS: lungs are clear to auscultation bilaterally on room air ABDOMEN: Contour (flat) / soft & not tender with palpation MSK/EXTREMITIES: range of motion intact in all 4 extremities NEURO: CN 2-12 are grossly intact / speech is not dysarthric PSYCH: alert and oriented to person place and time/ able to understand and follow all commands LABORATORY DATA: 07/25/19 17:57 IMAGING: Chest x-ray " There are bilateral pleural effusions, status quo. There has been previous median sternotomy with aortic valvular replacement, status quo. There are bilateral lower lung field opacities, status quo. There is no change in the osseous structures. There is no change in the cardiomediastinal silhouette." MICROBIOLOGY: Please see below. ASSESSMENT: Mr. Lam is a 74-year-old with a past medical history of anemia of unknown etiology, CLL, A. fib, tricuspid valve regurgitation with right sided heart di latation, and esophageal cancer who is admitted for management of acute anemia. PLAN: 1. Acute anemia Cause to be determined His hemoglobin is 8.1, down from 9.6 during his previous admission. Based on the discharge note dated July 12. The patient recently had a GI workup for the anemia, and they were unable to find a cause. Plan: Admit to medical floor/follow-up iron panel, reticulocyte count, LDH, haptoglobin/follow-up repeat hemoglobin/follow-up stool occult 2. Hyperkalemia The EKG showed ventricular paced rhythm with a rate of 80 and normal T waves. Plan: follow-up repeat BMP 3. Atrial fibrillation - hold Xarelto because of acute anemia 4. Tricuspid valve regurgitation with right sided heart dilatation -resume amiloride tomorrow if blood pressure permits 5. Esophageal cancer/CLL - follow-up with Dr. Kate scheduled 6. Protein calorie malnutrition - follow-up pre-albumin/the day time team may consider consulting a dietitian for calorie count & recommendations on appropria te diet to help him gain weight 7. Chronic Back pain - acetaminophen & lidocane patch / PT eval DVT PROPHYLAXIS: SCDs DISPOSITION: Home after more than 2 midnight's stay Home Medications Scheduled Amiloride HCl (Amiloride HCl) 5 Mg Tab, 5 MG PO DAILY Only if systolic is over 100 Apixaban (Eliquis) 5 Mg Tablet, 5 MG PO BID Collagenase Clostridium Hist. (Santyl) 30 Gm Oint...g., 1 APPLIC TOP DAILY TO WOUNDS ON TAILBONE AND LOWER BACK Pantoprazole Sodium (Pantoprazole Sodium) 40 Mg Tab, 40 MG PO DAILY Sertraline Hcl (Sertraline HCl) 50 Mg Tablet, 50 MG PO QPM Scheduled PRN Acetaminophen (Tylenol Extra Strength) 500 Mg Tablet, 1,000 MG PO TID PRN for PAIN Allergies Coded Allergies: No Known Allergies (Unverified , 09/13/18) A-FIB/CHADSVASC A-FIB History Current/History of A-Fib/PAF?: Yes Current PO Anticoag Therapy: No Treatment Treatment ordered: Holding Other LEYDI RAWLS MD Jul 25, 2019 19:20
[2019-07-25 19:49] LABS: FERRITIN 921 NG/ML (26-388); IRON (FE) 106 UG/DL (65-175); PERCENT SATURATION 79.7 % (19.7-50.0); TOTAL IRON BINDING CAPACITY 133 UG/DL (250-450)
[2019-07-25] MEDS ORDERED: SOD POLYSTYRENE SULFONATE SUSP 15 GM/60 ML UD PO ONE (20:00)
[2019-07-25 20:16] LABS: LDH LACTATE DEHYDROGENASE 276 U/L (87-241)
[2019-07-25] MEDS: DOCUSATE SODIUM 100 MG CAP PO SCH (20:35)
[2019-07-25] MEDS ORDERED: SERTRALINE HCL 50 MG TAB PO SCH (21:00)
[2019-07-25 21:29] LABS: BLOOD UREA NITROGEN 19 MG/DL (7-18); CALCIUM LEVEL 9.4 MG/DL (8.8-10.2); CARBON DIOXIDE LEVEL 30 MEQ/L (21-32); CHLORIDE LEVEL 104 MEQ/L (98-107); CREATININE FOR GFR 1.17 MG/DL (0.70-1.30); GLOMERULAR FILTRATION RATE > 60.0 (>42); GLUCOSE, FASTING 69 MG/DL (70-100); POTASSIUM SERUM 5.1 MEQ/L (3.5-5.1); PREALBUMIN 9.5 MG/DL (20.0-40.0); SODIUM LEVEL 139 MEQ/L (136-145)
[2019-07-25] MEDS ORDERED: LIDOCAINE 5% (LIDODERM) PATCH TD SCH (21:45)
[2019-07-26] VITALS (10 sets, daily range): BP systolic 90–118; BP diastolic 61–73
[2019-07-26 06:14] LABS: HEMATOCRIT 25.3 % (42.0-52.0); MEAN CORPUSCULAR HEMOGLOBIN 31.3 pg (27.0-33.0); MEAN CORPUSCULAR HGB CONC 31.6 g/dl (32.0-36.5); MEAN CORPUSCULAR VOLUME 98.8 fl (80.0-96.0); PLATELET COUNT, AUTOMATED 187 10^3/uL (150-450); RED BLOOD COUNT 2.56 10^6/uL (4.30-6.10); WHITE BLOOD COUNT 25.8 10^3/uL (4.0-10.0)
[2019-07-26 06:44] LABS: BLOOD UREA NITROGEN 20 MG/DL (7-18); CALCIUM LEVEL 8.6 MG/DL (8.8-10.2); CARBON DIOXIDE LEVEL 30 MEQ/L (21-32); CHLORIDE LEVEL 104 MEQ/L (98-107); CREATININE FOR GFR 1.01 MG/DL (0.70-1.30); GLOMERULAR FILTRATION RATE > 60.0 (>42); GLUCOSE, FASTING 75 MG/DL (70-100); LDH LACTATE DEHYDROGENASE 249 U/L (87-241); MAGNESIUM LEVEL 2.7 MG/DL (1.8-2.4); POTASSIUM SERUM 5.1 MEQ/L (3.5-5.1); SODIUM LEVEL 137 MEQ/L (136-145)
[2019-07-26] MEDS: DOCUSATE SODIUM 100 MG CAP PO SCH (08:19)
[2019-07-26] MEDS ORDERED: aMILoride 5 MG TAB PO SCH (09:00)
[2019-07-26] MEDS ORDERED: **NOTE PATIENT COMMENT** MISC XX SCH (09:00)
[2019-07-26] MEDS ORDERED: PANTOPRAZOLE 40MG TAB (PROTONIX) PO SCH (09:00)
--- NOTE | 2019-07-26 20:51 | ECGEPIP ---
[facility] - ED Test Date: 2019-07-25 Pat Name: RASHAWN VALENCIA Department: Room: [place] [address] Gender: Male Senior Nuclear Medicine Technologist: LINDA : 1945 Requested By: Carlo Pacheco Order Number: [id number] Reading MD: Criselda Mendoza Measurements Intervals Beyer Rate: 80 P: MO: 0 QRS: -88 QRSD: 170 T: 90 QT: 449 QTc: 519 Interpretive Statements ELECTRONIC VENTRICULAR PACEMAKER ABNORMAL RHYTHM ECG Electronically Signed on 07-26-2019 20:51:20 EDT by Criselda Mendoza
--- NOTE | 2019-07-26 23:18 | DS.PDOC ---
Discharge Summary General Date of Admission Jul 25, 2019 at 19:12 Date of Discharge 07/26/19 Attending Physician: RAFY BERMAN MD Discharge Summary PROCEDURES PERFORMED DURING STAY: None ADMITTING DIAGNOSES: 1. Transfusion dependent anemia secondary to CLL DISCHARGE DIAGNOSES: 1. Transfusion dependent anemia secondary to CLL COMPLICATIONS/CHIEF COMPLAINT: Anemia;Hyperkalemia. HISTORY OF PRESENT ILLNESS: 74 y.o male w/ multiple medical comorbidities was admitted for hypotension and anemia. Patient is chronically hypotensive at baseline, usually SBP in the 80s which was concerning to his home visiting nurse who sent him to the hospital. Patient was completely asymptomatic, as expected because he's at his baseline. Patient has chronic transfusion dependent anemia secondary to CLL, hemoglobin ~8 today, transfused 1 unit prior to discharging home. Patient is clinically and hemodynamically stable, at his baseline. HOSPITAL COURSE: As above DISCHARGE MEDICATIONS: Please see below. ALLERGIES: Please see below. PHYSICAL EXAMINATION ON DISCHARGE: VITAL SIGNS: Please see below. GENERAL: frail, cachectic HEENT: moist mucus membranes NECK: supple CARDIOVASCULAR EXAMINATION: S1, S2, no murmurs RESPIRATORY EXAMINATION: diminished in the bases bilaterally ABDOMINAL EXAMINATION: soft, non-tender, non-distended, +BS EXTREMITIES: ROM intact SKIN: no rash NEUROLOGICAL EXAMINATION: no focal deficits PSYCHIATRIC EXAMINATION: calm LABORATORY DATA: Please see below. IMAGING: CXR showing b/l pleural effusions PROGNOSIS: Guarded ACTIVITY: As tolerated DIET: Cardiac DISCHARGE PLAN: f/u with PCP & Oncologist in 1-2 weeks DISPOSITION: 01 Home, Self-Care. DISCHARGE INSTRUCTIONS: 1. As above DISCHARGE CONDITION: Stable TIME SPENT ON DISCHARGE: Greater than 26 minutes. Vital Signs/I&Os Vital Signs Date Time Temp Pulse Resp B/P (MAP) Pulse Ox O2 Delivery O2 Flow Rate FiO2 07/26/19 16:50 97.9 79 18 107/73 93 Room Air I&O- Last 24 Hours up to 6 AM 07/26/19 06:00 Intake Total 110 ml Output Total 100 ml Balance 10 ml Laboratory Data Labs 24H Laboratory Tests 2 07/26/19 05:33: Nucleated Red Blood Cells % (auto) 0.2H, Anion Gap 3L, Glomerular Filtration Rate > 60.0, Calcium Level 8.6L, Magnesium Level 2.7H, Lactate Dehydrogenase 249H CBC/BMP Laboratory Tests 07/26/19 05:33 Microbiology Microbiology 07/26/19 Stool Occult Blood (ADRIANA) - Final, Complete Discharge Medications Scheduled Amiloride HCl (Amiloride HCl) 5 Mg Tab, 5 MG PO DAILY, (Reported) Only if systolic is over 100 Apixaban (Eliquis) 5 Mg Tablet, 5 MG PO BID, (Reported) Collagenase Clostridium Hist. (Santyl) 30 Gm Oint...g., 1 APPLIC TOP DAILY, (Reported) TO WOUNDS ON TAILBONE AND LOWER BACK Pantoprazole Sodium (Pantoprazole Sodium) 40 Mg Tab, 40 MG PO DAILY, (Reported) Sertraline Hcl (Sertraline HCl) 50 Mg Tablet, 50 MG PO QPM, (Reported) Scheduled PRN Acetaminophen (Tylenol Extra Strength) 500 Mg Tablet, 1,000 MG PO TID PRN for PAIN, (Reported) Allergies Coded Allergies: No Known Allergies (Unverified , 09/13/18) RAFY BERMAN MD Jul 26, 2019 23:18
== END 2019-07-26 17:24 | disposition home or self-care (01) | DRG 841 ==
LOC: M ED 15:32 → EDBD 15:32 → M ED INP 19:12 → ENRESERVDT 23:33 → ENRESERVTM 23:33 → M MSPAV 07-26 00:10
PROVIDERS: ADMIT Internal Medicine; ATTEND Internal Medicine
DX: C91.10 Chronic lymphocytic leukemia of B-cell type not having achieved remission (principal); E46 Unspecified protein-calorie malnutrition; Z68.1 Body mass index [BMI] 19.9 or less, adult; D64.9 Anemia, unspecified; E87.5 Hyperkalemia; I95.9 Hypotension, unspecified; Z79.899 Other long term (current) drug therapy; I48.91 Unspecified atrial fibrillation; I25.10 Atherosclerotic heart disease of native coronary artery without angina pectoris; I36.0 Nonrheumatic tricuspid (valve) stenosis; Z95.0 Presence of cardiac pacemaker; Z85.01 Personal history of malignant neoplasm of esophagus

== ENCOUNTER 2019-08-04 20:29 | Emergency (ER) | payer MEDICARE ==
[~2019-08-04] VITALS: Ht 180.3 cm; Wt 54.5 kg
[~2019-08-04 20:29] MED LIST changes: +ACET-897 PO
[2019-08-04] MEDS ORDERED: NS 1,000 ML IV SCH (20:40)
[2019-08-04 21:25] LABS: HEMATOCRIT 28.4 % (42.0-52.0); HEMOGLOBIN 9.6 g/dl (13.5-17.5); MEAN CORPUSCULAR HEMOGLOBIN 33.1 pg (27.0-33.0); MEAN CORPUSCULAR HGB CONC 33.8 g/dl (32.0-36.5); MEAN CORPUSCULAR VOLUME 97.9 fl (80.0-96.0); PLATELET COUNT, AUTOMATED 231 10^3/uL (150-450)
[2019-08-04 21:26] LABS: WHITE BLOOD COUNT 34.1 10^3/uL (4.0-10.0)
[2019-08-04 21:38] LABS: ATYPICAL LYMPH 14 % (0-5); LYMPHOCYTES 74 % (16-44); MONOCYTES 3 % (0-5); NEUTROPHILS 9 % (28-66)
[2019-08-04 21:39] LABS: PLATELET ESTIMATE NORMAL (NORMAL)
[2019-08-04 21:40] LABS: ANISOCYTOSIS 3+; POIKILOCYTOSIS 2+; POLYCHROMASIA 1+
[2019-08-04 21:41] LABS: BURR CELLS 1+; SCHISTOCYTES 1+; SMUDGE CELLS 1+
[2019-08-04 21:42] LABS: OVALOCYTES 1+; TARGET CELLS 1+
[2019-08-04 21:45] LABS: HOWELL-JOLLY BODIES 1+
[2019-08-04 21:48] LABS: BILIRUBIN,DIRECT 0.4 MG/DL (0.0-0.2); CALCIUM LEVEL 8.8 MG/DL (8.8-10.2); CREATININE FOR GFR 1.57 MG/DL (0.70-1.30); GLOMERULAR FILTRATION RATE 46.2 (>42); POTASSIUM SERUM 5.1 MEQ/L (3.5-5.1); TOTAL PROTEIN 6.2 GM/DL (6.4-8.2)
[2019-08-04] MEDS ORDERED: NS 1,000 ML IV ONE (22:15)
[2019-08-05 02:15] VITALS: BP 94/55
--- NOTE | 2019-08-05 08:53 | REP ---
Clinical: Chest pain. Malaise. Comparison: 07/25/2019. Findings: Lower lobe opacities are similar to prior examination and may represent chronic changes as well as superimposed pleural effusions and atelectasis. Mediastinum and cardiac silhouette stable including evidence for prior sternotomy, cardiac valve repair, and pacemaker. No pneumothorax. Skeletal structures intact. Impression: Bilateral lower lobe opacities similar to prior examination. Differential diagnosis includes chronic change as well as superimposed pleural effusions and atelectasis. Electronically Signed by Chun Plascencia MD 08/05/2019 08:45 A
--- NOTE | 2019-08-06 08:40 | ED PDOC ---
Post-Departure Follow-Up dr lepe faxed formal report of cxr-p for fu Lashae Be MD Aug 06, 2019 08:40
[2019-08-07] MEDS ORDERED: TORS20TA2 PO (09:38)
== END 2019-08-05 02:36 | disposition home or self-care (01) ==
LOC: EDBD 20:29 → M ED 20:29
DX: R53.81 Other malaise (principal); R53.83 Other fatigue; R91.8 Other nonspecific abnormal finding of lung field; I51.9 Heart disease, unspecified; K21.9 Gastro-esophageal reflux disease without esophagitis; N18.9 Chronic kidney disease, unspecified; N40.0 Benign prostatic hyperplasia without lower urinary tract symptoms; Z95.0 Presence of cardiac pacemaker; Z79.899 Other long term (current) drug therapy

== ENCOUNTER 2019-08-07 11:02 | Outpatient (CLI) | payer MEDICARE ==
[2019-08-07] VITALS (7 sets, daily range): BP systolic 82–93; BP diastolic 44–63
[~2019-08-07] VITALS: Ht 182.9 cm; Wt 53.9 kg
[~2019-08-07 11:02] MED LIST changes: +ACETAMINOPHEN TAB 650MG DOSE (2X325MG) PO SCH; +diphenhydrAMINE 25 MG CAP PO SCH
[2019-08-07] MEDS ORDERED: FUROSEMIDE 20 MG/2 ML VIAL (J1940) IV ONE (12:00)
[2019-08-07] MEDS ORDERED: MEGE40TA PO (14:56)
== END 2019-08-07 16:10 | disposition home or self-care (01) ==
LOC: M INFU 11:02
PROVIDERS: ATTEND Internal Medicine Medical Oncology
DX: C15.9 Malignant neoplasm of esophagus, unspecified (principal)
CPT/HCPCS: 36415; 36430; 82668; 83520; 85027; 86850; 86900; 86901; 86920; G0463; J1940; P9016